=== PATIENT | female | born 1930 | race Caucasian/White ===

== ENCOUNTER 2016-07-10 14:28 | Emergency (ER) | payer MEDICARE ==
[2016-07-10 14:42] VITALS: O2SAT 97
[2016-07-10] MEDS ORDERED: Sodium Chloride 0.9% 1000 ML 1,000 ML ONE (15:11)
--- NOTE | 2016-07-10 15:12 | ERPHSYRPT ---
- History of Present Illness Time Seen by Provider: 07/10/16 15:10 Source: patient, family Exam Limitations: no limitations Patient Subjective Stated Complaint: pt states she was making brownies and became dizzy. pt denies any pain at this time. states dizziness is better. pt states she takes her blood pressure med at night. Triage Nursing Assessment: pt pink, warm, dry. pt able to transfer to er cot without difficulty. pt afebrile. Physician History: pt states she was making brownies and became dizzy. pt denies any pain at this time. states dizziness is better. pt states she takes her blood pressure med at night. Timing/Duration: today Severity: mild Character of Deficits: none Deficits: no difficulties Baseline/Normal Cognition: alert oriented x 3, poor alertness Baseline Gait: uses cane Associated Symptoms: denies symptoms Allergies/Adverse Reactions: Sulfa (Sulfonamide Antibiotics) Allergy (Intermediate, Verified 07/10/16 14:42) stated "made me feel funny" Home Medications: Aspirin 162 mg PO DAILY 08/18/14 [History] Atorvastatin Calcium [Lipitor] 40 mg PO HS 08/18/14 [History] Celecoxib [Celebrex] 200 mg PO DAILY 08/18/14 [History] Esomeprazole Magnesium [Nexium] 40 mg PO DAILY 08/18/14 [History] Levothyroxine Sodium [Synthroid] 50 mcg PO DAILY 08/18/14 [History] Amlodipine Besylate/Benazepril [Amlodipine-Benazepril 5-10 mg] 1 cap PO HS 10/26 [History] Calc/D3/Mag/Zn/Underlay Stitcher/Toni/Hardy [Calcium 600 mg Plus Vit D Tab] 1 tab PO BID 10/26 [History] Famotidine [Pepcid] 40 mg PO HS 10/27/15 [History] Hydrocodone/APAP 10/325 mg [[place] 10/325 MG Tablet] 0.5 tab PO BID [History] Ibandronate Sodium 150 mg PO UD 10/27/15 [History] Multivitamin [Daily Multivitamin] 1 tab PO DAILY 10/27/15 [History] Hx Tetanus, Diphtheria Vaccination/Date Given: Yes (up to date) Hx Influenza Vaccination/Date Given: Yes Hx Pneumococcal Vaccination/Date Given: Yes Immunizations Up to Date: Yes - Review of Systems Constitutional: No Fever, No Chills Eyes: No Symptoms Ears, Nose, & Throat: No Symptoms Respiratory: No Cough, No Dyspnea Cardiac: No Chest Pain, No Edema, No Syncope Abdominal/Gastrointestinal: No Abdominal Pain, No Nausea, No Vomiting, No Diarrhea Genitourinary Symptoms: No Dysuria Musculoskeletal: No Back Pain, No Neck Pain Skin: No Rash Neurological: Dizziness, No Focal Weakness, No Sensory Changes Psychological: No Symptoms Endocrine: No Symptoms All Other Systems: Reviewed and Negative - Past Medical History Pertinent Past Medical History: Yes Neurological History: No Pertinent History ENT History: Cataracts Cardiac History: Coronary Artery Disease, High Cholesterol, Hypertension Respiratory History: No Pertinent History Endocrine Medical History: Hyperthyroidism Musculoskeletal History: Arthritis, Degenerative Disk Disease GI Medical History: GERD, Ulcer History: No Pertinent History Psycho-Social History: No Pertinent History Female Reproductive Disorders: No Pertinent History Other Medical History: HX OF TRIPLE BYPASS 1997 - Past Surgical History Past Surgical History: Yes Neuro Surgical History: No Pertinent History Cardiac: CABG Respiratory: No Pertinent History Gastrointestinal: Cholecystectomy Genitourinary: No Pertinent History Musculoskeletal: No Pertinent History, Orthopedic Surgery Female Surgical History: No Pertinent History Other Surgical History: kypho - Social History Smoking Status: Never smoker Exposure to second hand smoke: No Drug Use: none Patient Lives Alone: Yes - Nursing Vital Signs Nursing Vital Signs: Initial Vital Signs Temperature Source Oral Pulse Rate 64 Respiratory Rate 18 Blood Pressure [] 182/80 Pain Intensity 0 - Hamzah Coma Scale Best Eye Response (Hamzah): (4) open spontaneously Best Verbal Response (Hamzah): (5) oriented Best Motor Response ([place]): (6) obeys commands Hamzah Total: 15 - Physical Exam General Appearance: no apparent distress, alert Eye Exam: bilateral eye: PERRL, EOMI Ears, Nose, Throat Exam: normal ENT inspection, moist mucous membranes Neck Exam: normal inspection, non-tender, supple Respiratory: normal breath sounds, lungs clear, airway intact, No respiratory distress Cardiovascular: regular rate/rhythm, No edema Gastrointestinal: soft, No tenderness, No distention Back Exam: normal inspection Extremity Exam: normal inspection, No pedal edema Mental Status: alert, 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 Exam: tongue midline Coordination/Gait: normal finger to nose, normal gait Skin Exam: normal color, warm, dry, No rash SpO2: 97 Oxygen Delivery: Room Air - Course Nursing assessment & vital signs reviewed: Yes - CT Exams Head CT Interpretation: Tele-radiologist Report Ordered Tests: Active Orders 24 hr Category Date Time Status Blast Furnace Keeper Helper STAT Care 07/10/16 16:01 Active EKG-ER Only STAT Care 07/10/16 15:07 Active HEAD WITHOUT CONTRAST [CT] Stat Exams 07/10/16 15:08 Taken CBC W DIFF Stat Lab 07/10/16 15:24 Completed CMP Stat Lab 07/10/16 15:24 Completed UA Stat Lab 07/10/16 15:15 Completed Medication Summary Generic Name Dose Route Start Last Admin Trade Name Freq PRN Reason Stop Dose Admin Sodium Chloride 1,000 mls @ 50 mls/hr 07/10/16 15:15 07/10/16 15:24 Sodium Chloride 0.9% 1000 Ml IV 08/09/16 15:14 50 mls/hr .Q20H ZHANNA Administration Discontinued Medications Generic Name Dose Route Start Last Admin Trade Name Freq PRN Reason Stop Dose Admin Sodium Chloride Confirm 07/10/16 15:11 Sodium Chloride 0.9% 1000 Ml Administered 07/10/16 15:12 Dose 1,000 mls @ ud .ROUTE .[facility] Lab/Rad Data: Laboratory Result Diagrams 07/10/16 15:24 07/10/16 15:24 Laboratory Results 07/10/16 07/10/16 07/10/16 Range/Units 15:24 15:24 15:15 WBC 7.6 (4.0-10.5) K/mm3 RBC 4.00 L (4.1-5.4) M/mm3 Hgb 12.5 (12.0-16.0) gm/dl Hct 37.7 (35-47) % MCV 94.3 (78-100) fl MCH 31.2 (26-32) pg MCHC 33.2 (32-36) g/dl RDW 13.5 (11.5-14.0) % Plt Count 230 (150-450) K/mm3 MPV 10.2 H (6-9.5) fl Gran % 68.4 H (36.0-66.0) % Lymphocytes % 19.7 L (24.0-44.0) % Monocytes % 9.3 (0.0-12.0) % Eosinophils % 2.1 (0.00-5.0) % Basophils % 0.5 (0.0-0.4) % Basophils # 0.04 (0-0.4) Sodium 135 L (136-145) mEq/L Potassium 4.2 (3.5-5.1) mEq/L Chloride 97 L (98-107) mEq/L Carbon Dioxide 26.9 (21-32) mEq/L Anion Gap 15.4 H (5-15) MEQ/L BUN 16 (9-20) mg/dL Creatinine 0.99 (0.55-1.30) mg/dl Estimated GFR 57 ML/MIN Glucose 138 H (70-110) MG/DL Calcium 9.4 (8.5-10.1) mg/dL Total Bilirubin 0.5 (0.2-1.0) mg/dL AST 27 (15-37) U/L ALT 19 (12-78) U/L Alkaline Phosphatase 74 (46-116) U/L Serum Total Protein 7.6 (6.4-8.2) gm/dL Albumin 4.1 (3.4-5.0) g/dL Ur Collection Type CLEAN CATCH Urine Color YELLOW (YELLOW) Urine Appearance CLEAR (CLEAR) Urine pH 6.5 (5-6) Ur Specific [place] 1.015 (1.005-1.025) Urine Protein NEGATIVE (Negative) Urine Glucose (UA) NEGATIVE (NEGATIVE) mg/dL Urine Ketones NEGATIVE (NEGATIVE) Urine Nitrite NEGATIVE (NEGATIVE) Urine Bilirubin NEGATIVE (NEGATIVE) Urine Urobilinogen 0.2 (0-1) mg/dL Urine WBC (Auto) NEGATIVE (NEGATIVE) Urine RBC (Auto) NEGATIVE (0-5) Shaun/ul Specimen Received 07/10/16 1515 - Progress Progress: improved Counseled pt/family regarding: lab results, diagnosis, need for follow-up, rad results - Departure Time of Disposition: 16:39 Departure Disposition: Home Clinical Impression: Dizziness and giddiness Hypertension Qualifiers: Hypertension type: essential hypertension Qualified Code(s): I10 - Essential ( primary) hypertension Condition: Stable Critical Care Time: Yes Critical Care Time(excluding separately billable procedures): 30-74 minutes Referrals: SAÚL KEATING [Primary Care Provider] - Additional Instructions: Please follow the instructions given to you. Please take your medication as prescribed if given. If symptoms recur or get worse, come back to the emergency room if you cannot reach your primary care physician, or call your primary care physician for an appointment. Again if your symptoms get worse, come back to the emergency room. Thanks for visiting emergency room, and let us take care of you.
[2016-07-10] MEDS ORDERED: Sodium Chloride 0.9% 1000 ML 1,000 ML IV SCH (15:15)
[2016-07-10 15:28] LABS: Collection Type CLEAN CATCH
[2016-07-10 15:29] LABS: COMPLETE URINE MICROSCOPIC? NO; Ph 6.5 (5-6)
[2016-07-10 15:34] LABS: BASOPHIL % 0.5 % (0.0-0.4); Eosinophil % 2.1 % (0.00-5.0); Granulocytes % 68.4 % (36.0-66.0); Lymphocytes % 19.7 % (24.0-44.0); Mean Cell Volume 94.3 fl (78-100); Mean Platelet Volume 10.2 fl (6-9.5); Monocytes % 9.3 % (0.0-12.0); Platelet Count 230 K/mm3 (150-450); Red Cell Distribution Width 13.5 % (11.5-14.0); White Blood Count 7.6 K/mm3 (4.0-10.5)
[2016-07-10 15:38] LABS: Mean Corpuscular Hemoglobin 31.2 pg (26-32)
[2016-07-10 15:48] VITALS: PULSE 64
[2016-07-10 15:52] LABS: ALBUMIN 4.1 g/dL (3.4-5.0); ANION GAP 15.4 MEQ/L (5-15); BILIRUBIN,TOTAL 0.5 mg/dL (0.2-1.0); Carbon Dioxide 26.9 mEq/L (21-32); Potassium 4.2 mEq/L (3.5-5.1); Total Protein 7.6 gm/dL (6.4-8.2)
[2016-07-10 16:32] VITALS: BP 182/80
--- NOTE | 2016-07-10 21:48 | XRAY ---
Indication: Dizziness. Multiple contiguous axial images obtained through the head without contrast. Comparison: None Age-appropriate global atrophy and minimal periventricular degenerative micro-ischemia. No acute intracranial hemorrhage, abnormal extra-axial fluid collection, or mass effect. Fourth ventricle is midline without hydrocephalus. Bony calvarium intact. Partial opacification of the mastoid air cells bilaterally. Remaining visualized paranasal sinuses and mastoid air cells are pneumatized and clear. Impression: Nonacute senile brain. Partial opacification of the mastoid air cells presumed inflammatory. Comment: Preliminary interpretation was made by [facility]. No discrepancy. CTDI 69.79
== END 2016-07-10 17:07 | disposition home or self-care (01) ==
LOC: ED 14:28
DX: I10 Essential (primary) hypertension (principal); R42 Dizziness and giddiness; Z79.899 Other long term (current) drug therapy; I25.10 Atherosclerotic heart disease of native coronary artery without angina pectoris; E78.00 Pure hypercholesterolemia, unspecified; Z95.1 Presence of aortocoronary bypass graft
CPT/HCPCS: 36000; 36415; 70450; 80053; 81002; 85025; 93005; 93041; 99283

== ENCOUNTER 2018-06-25 07:57 | Observation (INO) | payer MEDICARE ==
--- NOTE | 2018-06-25 08:16 | ERPHSYRPT ---
- History of Present Illness Time Seen by Provider: 06/25/18 08:13 Source: patient, family Exam Limitations: no limitations Patient Subjective Stated Complaint: pt arrived pov for sob this morning while using the restroom.also co dizziness with movement, also co dry cough Triage Nursing Assessment: pt alert, able to undress and get in bed with minimal assistance, resp easy,chest clear, abd soft, nontender Physician History: The patient is an 88-year-old female with her daughter complaining of a sudden onset of shortness of breath and a pounding heart that began at 2 AM and gradually got betterat 4 AM. She states she still is somewhat short of breath but her heart is not pounding. She denies cough. She denies nausea or vomiting. She denies chest pain. Her past medical history is significant for chronic back pain, hypertension, high cholesterol, GERD, and hypothyroidism. She has a CABG and CAD. Timing/Duration: today, hour(s) (2), sudden, improved Activities at Onset: sleep Severity of Dyspnea-Max: moderate Severity of Dyspnea-Current: mild Possible Cause: no prior episodes Modifying Factors: Improves With: nothing Associated Symptoms: No chest pain/discomfort, No edema, No wheezing Allergies/Adverse Reactions: Sulfa (Sulfonamide Antibiotics) Allergy (Intermediate, Verified 07/10/16 14:42) stated "made me feel funny" Home Medications: Aspirin 162 mg PO DAILY 08/18/14 [History] Atorvastatin Calcium [Lipitor] 40 mg PO HS 08/18/14 [History] Esomeprazole Magnesium [Nexium] 40 mg PO DAILY 08/18/14 [History] Levothyroxine Sodium [Synthroid] 50 mcg PO DAILY 08/18/14 [History] Amlodipine Besylate/Benazepril [Amlodipine-Benazepril 5-10 mg] 1 cap PO HS 10/26 [History] Calc/D3/Mag/Zn/Tai/Toni/[place] [Calcium 600 mg Plus Vit D Tab] 1 tab PO BID [History] Famotidine [Pepcid] 40 mg PO HS 10/27/15 [History] Ibandronate Sodium 150 mg PO UD 10/27/15 [History] Multivitamin [Daily Multivitamin] 1 tab PO DAILY 10/27/15 [History] Famotidine [Pepcid] 40 mg DAILY 06/25/18 [History] Fludrocortisone Acetate 0.1 mg DAILY 06/25/18 [History] Furosemide [Lasix] 40 mg DAILY 06/25/18 [History] Lisinopril [Zestril] 5 mg DAILY 06/25/18 [History] Meclizine HCl 25 mg BID 06/25/18 [History] Meloxicam 7.5 mg [Mobic 7.5 MG] 7.5 mg DAILY 06/25/18 [History] Metoclopramide HCl 10 mg [Reglan 10 MG] 10 mg BID 06/25/18 [History] Metoprolol Succinate 25 mg Xl* [Toprol-Xl 25MG Tablets] 25 mg DAILY 06/25/18 [History] Oxybutynin Chloride [Oxybutynin Chloride ER] 5 mg DAILY 06/25/18 [History] Potassium Chloride 8 meq DAILY 06/25/18 [History] Tolterodine Tartrate [Detrol LA] 4 mg DAILY 06/25/18 [History] Hx Tetanus, Diphtheria Vaccination/Date Given: No Hx Influenza Vaccination/Date Given: Yes Hx Pneumococcal Vaccination/Date Given: Yes Immunizations Up to Date: Yes - Review of Systems Constitutional: No Fever, No Chills Eyes: No Symptoms Ears, Nose, & Throat: No Symptoms Respiratory: Dyspnea, No Cough Cardiac: Palpitations Abdominal/Gastrointestinal: No Abdominal Pain, No Nausea, No Vomiting, No Diarrhea Genitourinary Symptoms: No Dysuria Musculoskeletal: No Back Pain, No Neck Pain Skin: No Rash Neurological: No Dizziness, No Focal Weakness, No Sensory Changes Psychological: No Symptoms Endocrine: No Symptoms Hematologic/Lymphatic: No Symptoms Immunological/Allergic: No Symptoms All Other Systems: Reviewed and Negative - Past Medical History Pertinent Past Medical History: Yes Neurological History: No Pertinent History ENT History: Cataracts Cardiac History: Coronary Artery Disease, High Cholesterol, Hypertension Respiratory History: No Pertinent History Endocrine Medical History: Hyperthyroidism Musculoskeletal History: Arthritis, Degenerative Disk Disease GI Medical History: GERD, Ulcer History: No Pertinent History Psycho-Social History: No Pertinent History Female Reproductive Disorders: No Pertinent History Other Medical History: HX OF TRIPLE BYPASS 1997 - Past Surgical History Past Surgical History: Yes Neuro Surgical History: No Pertinent History Cardiac: CABG Respiratory: No Pertinent History Gastrointestinal: Cholecystectomy Genitourinary: No Pertinent History Musculoskeletal: No Pertinent History, Orthopedic Surgery Female Surgical History: No Pertinent History Other Surgical History: kypho - Social History Smoking Status: Never smoker Exposure to second hand smoke: No Drug Use: none Patient Lives Alone: Yes - Female History Hx Last Menstrual Period: post - Nursing Vital Signs Nursing Vital Signs: Initial Vital Signs Temperature 97.9 F 06/25/18 08:04 Pulse Rate 61 06/25/18 08:04 Respiratory Rate 16 06/25/18 08:04 Blood Pressure 197/76 06/25/18 08:04 O2 Sat by Pulse Oximetry 97 06/25/18 08:04 Pain Scale Pain Intensity 0 - Physical Exam General Appearance: no apparent distress, alert Eye Exam: PERRL/EOMI Ears, Nose, Throat Exam: hearing grossly normal Neck Exam: normal inspection, supple Respiratory Exam: normal breath sounds, No accessory muscle use, No rhonchi, No wheezing Cardiovascular/Chest Exam: normal heart sounds, regular rate/rhythm Abdominal/Gastrointestinal Exam: soft, No tenderness, No distention, No mass Rectal Exam: not done Extremity Exam: non-tender, normal range of motion, normal inspection, no calf tenderness, no pedal edema Neurologic Exam: alert, oriented x 3, cooperative, power plant mechanic II-XII nml as tested, sensation nml, No motor deficits Skin Exam: normal color, warm, No dry SpO2 Interpretation: normal SpO2: 97 Oxygen Delivery: Room Air - Course EKG Interpreted by Me: RATE, Sinus Rhythm, NORMAL AXIS, NORMAL INTERVALS, NORMAL QRS, NORMAL ST-T, Other ( no change in EKG comp to EG from 07/10/16.) - Radiology Exams Chest X-ray Interpretation: Reviewed by me, Teleradiologist Report (per Dr Bonner), Negative Ordered Tests: Active Orders 24 hr Category Date Time Status Color Worker STAT Care 06/25/18 08:21 Active EKG-ER Only STAT Care 06/25/18 08:21 Active IV Insertion STAT Care 06/25/18 08:21 Active CHEST 2 VIEWS (PA AND LAT) Stat Exams 06/25/18 08:23 Completed CBC W DIFF Stat Lab 06/25/18 08:40 Completed CMP Stat Lab 06/25/18 08:40 Completed D-DIMER QUANTITATION Stat Lab 06/25/18 08:40 Completed Lactic Acid Stat Lab 06/25/18 08:45 Completed NT PRO BNP Stat Lab 06/25/18 08:40 Completed PROTIME WITH INR Stat Lab 06/25/18 08:40 Completed TROPONIN Q3H Lab 06/25/18 08:40 Completed TROPONIN Q3H Lab 06/25/18 11:30 Ordered TROPONIN Q3H Lab 06/25/18 14:30 Ordered TROPONIN Q3H Lab 06/25/18 17:30 Ordered TROPONIN Q3H Lab 06/25/18 20:30 Ordered UA W/RFX UR CULTURE Stat Lab 06/25/18 09:35 Completed Lab/Rad Data: Laboratory Result Diagrams 06/25/18 08:40 06/25/18 08:40 Laboratory Results 06/25/18 06/25/18 06/25/18 Range/Units 09:35 08:45 08:40 WBC (4.0-10.5) K/mm3 RBC (4.1-5.4) M/mm3 Hgb (12.0-16.0) gm/dl Hct (35-47) % MCV (78-100) fl MCH (26-32) pg MCHC (32-36) g/dl RDW (11.5-14.0) % Plt Count (150-450) K/mm3 MPV (6-9.5) fl Gran % (36.0-66.0) % Eos # (Auto) (0-0.5) Absolute Lymphs (auto) (1.0-4.6) Absolute Monos (auto) (0.0-1.3) Lymphocytes % (24.0-44.0) % Monocytes % (0.0-12.0) % Eosinophils % (0.00-5.0) % Basophils % (0.0-0.4) % Absolute Granulocytes (1.4-6.9) Basophils # (0-0.4) PT (9.95-12.35) SECONDS INR (0.8-3.0) D-Dimer (215-500) ng/mL Sodium (137-145) mmol/L Potassium (3.5-5.1) mmol/L Chloride (98-107) mmol/L Carbon Dioxide (22-30) mmol/L Anion Gap (5-15) MEQ/L BUN (7-17) mg/dL Creatinine (0.52-1.04) mg/dL Estimated GFR ML/MIN Glucose (74-106) mg/dL Lactic Acid 1.0 (0.4-2.0) Calcium (8.4-10.2) mg/dL Total Bilirubin (0.2-1.3) mg/dL AST (14-36) U/L ALT (0-35) U/L Alkaline Phosphatase (38-126) U/L Troponin I < 0.012 (0.000-0.034) ng/mL NT-Pro-B Natriuret Pep (0-1800) pg/mL Serum Total Protein (6.3-8.2) g/dL Albumin (3.5-5.0) g/dL Urine Color YELLOW (YELLOW) Urine Appearance CLEAR (CLEAR) Urine pH 7.0 (5-6) Ur Specific [place] 1.008 (1.005-1.025) Urine Protein NEGATIVE (Negative) Urine Ketones NEGATIVE (NEGATIVE) Urine Blood NEGATIVE (0-5) Shaun/ul Urine Nitrite NEGATIVE (NEGATIVE) Urine Bilirubin NEGATIVE (NEGATIVE) Urine Urobilinogen NEGATIVE (0-1) mg/dL Ur Leukocyte Esterase SMALL (NEGATIVE) Urine WBC (Auto) 6-10 (0-5) /HPF Urine RBC (Auto) 0-2 (0-2) /HPF U Epithel Cells (Auto) RARE (FEW) /HPF Urine Bacteria (Auto) MODERATE (NEGATIVE) /HPF Urine Mucus (Auto) SLIGHT (NEGATIVE) /HPF Urine Culture Reflexed NO (NO) Urine Glucose NEGATIVE (NEGATIVE) mg/dL 06/25/18 06/25/18 06/25/18 Range/Units 08:40 08:40 08:40 WBC 9.0 (4.0-10.5) K/mm3 RBC 3.79 L (4.1-5.4) M/mm3 Hgb 12.2 (12.0-16.0) gm/dl Hct 37.7 (35-47) % MCV 99.5 (78-100) fl MCH 32.1 H (26-32) pg MCHC 32.4 (32-36) g/dl RDW 12.8 (11.5-14.0) % Plt Count 223 (150-450) K/mm3 MPV 10.5 H (6-9.5) fl Gran % 66.4 H (36.0-66.0) % Eos # (Auto) 0.24 (0-0.5) Absolute Lymphs (auto) 1.65 (1.0-4.6) Absolute Monos (auto) 1.09 (0.0-1.3) Lymphocytes % 18.4 L (24.0-44.0) % Monocytes % 12.2 H (0.0-12.0) % Eosinophils % 2.7 (0.00-5.0) % Basophils % 0.3 (0.0-0.4) % Absolute Granulocytes 5.94 (1.4-6.9) Basophils # 0.03 (0-0.4) PT 10.6 (9.95-12.35) SECONDS INR 0.91 (0.8-3.0) D-Dimer 592 H* (215-500) ng/mL Sodium 140 (137-145) mmol/L Potassium 3.5 (3.5-5.1) mmol/L Chloride 98 (98-107) mmol/L Carbon Dioxide 33 H (22-30) mmol/L Anion Gap 12.6 (5-15) MEQ/L BUN 26 H (7-17) mg/dL Creatinine 1.28 H (0.52-1.04) mg/dL Estimated GFR 41.8 ML/MIN Glucose 101 (74-106) mg/dL Lactic Acid (0.4-2.0) Calcium 9.5 (8.4-10.2) mg/dL Total Bilirubin 0.60 (0.2-1.3) mg/dL AST 21 (14-36) U/L ALT 15 (0-35) U/L Alkaline Phosphatase 79 (38-126) U/L Troponin I (0.000-0.034) ng/mL NT-Pro-B Natriuret Pep 1070 (0-1800) pg/mL Serum Total Protein 7.7 (6.3-8.2) g/dL Albumin 4.4 (3.5-5.0) g/dL Urine Color (YELLOW) Urine Appearance (CLEAR) Urine pH (5-6) Ur Specific [place] (1.005-1.025) Urine Protein (Negative) Urine Ketones (NEGATIVE) Urine Blood (0-5) Shaun/ul Urine Nitrite (NEGATIVE) Urine Bilirubin (NEGATIVE) Urine Urobilinogen (0-1) mg/dL Ur Leukocyte Esterase (NEGATIVE) Urine WBC (Auto) (0-5) /HPF Urine RBC (Auto) (0-2) /HPF U Epithel Cells (Auto) (FEW) /HPF Urine Bacteria (Auto) (NEGATIVE) /HPF Urine Mucus (Auto) (NEGATIVE) /HPF Urine Culture Reflexed (NO) Urine Glucose (NEGATIVE) mg/dL - Progress Progress: improved Air Movement: good Blood Culture(s) Obtained: No Antibiotics given: No Discussed with : José Miguel Will see patient in: hospital (observation) Counseled pt/family regarding: lab results, diagnosis - Departure Time of Disposition: 10:44 Departure Disposition: Observation (per Dr Valdez) Clinical Impression: Dyspnea, Elevated d-dimer, UTI (urinary tract infection) Condition: Stable Critical Care Time: No Referrals: SAÚL KEATING [Primary Care Provider] -
--- NOTE | 2018-06-25 08:47 | XRAY ---
Indication: Short of breath. Comparison: October 28, 2015. PA/lateral chest demonstrates stable COPD, minimal bibasilar fibrosis/scarring, and small hiatal hernia. No focal infiltrate, consolidation, or large effusion. Heart is not enlarged again demonstrating previous cardiothoracic surgery. Bony thorax intact again with osteopenia, degenerative changes, old right rib fractures, and multilevel thoracolumbar kyphoplasty. Impression: Stable nonacute chest with chronic features.
[2018-06-25 09:03] LABS: BASOPHIL % 0.3 % (0.0-0.4); Basophil (Absolute #) 0.03 (0-0.4); Eosinophil % 2.7 % (0.00-5.0); Eosinophil (Absolute #) 0.24 (0-0.5); Granulocytes % 66.4 % (36.0-66.0); Hematocrit 37.7 % (35-47); Hemoglobin 12.2 gm/dl (12.0-16.0); Lymphocyte (Absolute #) 1.65 (1.0-4.6); Lymphocytes % 18.4 % (24.0-44.0); Mean Cell Volume 99.5 fl (78-100); Mean Corpuscular Hgb Concent. 32.4 g/dl (32-36); Mean Platelet Volume 10.5 fl (6-9.5); Monocyte (Absolute #) 1.09 (0.0-1.3); Monocytes % 12.2 % (0.0-12.0); Platelet Count 223 K/mm3 (150-450); Red Blood Count 3.79 M/mm3 (4.1-5.4); Red Cell Distribution Width 12.8 % (11.5-14.0)
[2018-06-25 09:05] LABS: Mean Corpuscular Hemoglobin 32.1 pg (26-32)
[2018-06-25 09:17] LABS: INR 0.91 (0.8-3.0); PROTIME 10.6 SECONDS (9.95-12.35)
[2018-06-25 09:28] LABS: ALBUMIN 4.4 g/dL (3.5-5.0); ANION GAP 12.6 MEQ/L (5-15); BILIRUBIN,TOTAL 0.6 mg/dL (0.2-1.3); Calcium 9.5 mg/dL (8.4-10.2); Creatinine 1 1.28 mg/dL (0.52-1.04); Potassium 3.5 mmol/L (3.5-5.1); Total Protein 7.7 g/dL (6.3-8.2)
[2018-06-25 09:47] LABS: Appearance CLEAR (CLEAR); Bacteria MODERATE /HPF (NEGATIVE); Bilirubin NEGATIVE (NEGATIVE); Blood NEGATIVE Ery/ul (0-5); Epithelial Cells RARE /HPF (FEW); Glucose NEGATIVE (NEGATIVE); Ketones NEGATIVE (NEGATIVE); Leukocyte Esterase SMALL (NEGATIVE); Mucus SLIGHT /HPF (NEGATIVE); Nitrite NEGATIVE (NEGATIVE); Protein,Urine Dip NEGATIVE (Negative); RBC 0-2 /HPF (0-2); Specific Gravity 1.008 (1.005-1.025); Urobilinogen NEGATIVE mg/dL (0-1)
[2018-06-25] MEDS ORDERED: ENOXAPARIN SODIUM SQ ONE ×3 (10:47→21:52)
[2018-06-25] MEDS ORDERED: TYLENOL 325 MG PO PRN (11:26)
[2018-06-25] MEDS ORDERED: Zofran 4 MG/2 ML VIAL IV PRN (11:26)
[2018-06-25] MEDS: Sodium Chloride 0.9% 1000 ML 1,000 ML IV SCH ×2 (11:56→21:29)
[2018-06-25] MEDS: ROCEPHIN 1 Gm-D5w 50 ml Bag** 1 G/50 ML IVPB IV SCH (12:02)
[2018-06-25] MEDS ORDERED: ANTIVERT 25 MG PO PRN (15:49)
[2018-06-25] MEDS ORDERED: MEDICATION INTERVENTION MC SCH (16:30)
[2018-06-25] MEDS ORDERED: APRESOLINE 20 MG/ML INJ IV PRN (20:30)
[2018-06-25] MEDS: Ditropan XL 5 MG PO SCH (21:24)
[2018-06-25] MEDS: Toprol-Xl 25MG Tablets PO SCH (21:24)
[2018-06-25] MEDS: Reglan 10 MG PO SCH (21:25)
--- NOTE | 2018-06-25 21:32 | PCM.HP ---
History of Present Illness - Chief Complaint Chief Complaint: Dyspnea, Elevated DDimer, UTI History of Present Illness: is a 88 year old female pt of Dr. Hernández with PMHx HTN, CAD (s/p CABG), GERD, hyperlipidemia, arthritis, and hypothyroidism, currently in PT for her back who started having SOB at home this morning. At 2 am she went to the bathroom where she started feeling SOB. It lasted until 4 a.m. She denies any chest pain. At 7 am the SOB returned and she called a family member to bring her to the ER. In the ER she was found to have an elevated d-dimer of 592. CXR was non acute. The feeling had resolved by then. Her BUN/Cr were 26/1.28, with eGFR of 41.8 so she could not have a CTA of the chest. She was admitted for observation and was given 1mg/kg SQ injection of lovenox x1. She denies hx of PE/DVT. - Review of Systems Constitutional: Fever (subj low grade), Weakness (PT "tires me out") Respiratory: Short Of Breath Psychological: No Anxiety, No Depression, No Suicidal Ideations All Other Systems: Reviewed and Negative Medications & Allergies Home Medications: Home Medication List Esomeprazole Magnesium [Nexium] 40 mg PO DAILY 08/18/14 [History Confirmed 06/25] Levothyroxine Sodium [Synthroid] 50 mcg PO DAILY 08/18/14 [History Confirmed ] Ibandronate Sodium 150 mg PO UD 10/27/15 [History Confirmed 06/25/18] Multivitamin [Daily Multivitamin] 1 tab PO DAILY 10/27/15 [History Confirmed ] Aspirin EC 81 mg [Ecotrin 81 mg] 162 mg PO DAILY 06/25/18 [History Confirmed 06/25/18] Famotidine [Pepcid] 40 mg PO DAILY 06/25/18 [History Confirmed 06/25/18] Fludrocortisone Acetate 0.1 mg PO DAILY 06/25/18 [History Confirmed 06/25/18] Furosemide [Lasix] 40 mg PO DAILY 06/25/18 [History Confirmed 06/25/18] Meclizine HCl 25 mg PO TIDPRN PRN 06/25/18 [History Confirmed 06/25/18] Meloxicam 7.5 mg [Mobic 7.5 MG] 7.5 mg PO DAILY 06/25/18 [History Confirmed 06/25/18] Metoclopramide HCl 10 mg [Reglan 10 MG] 10 mg PO BID 06/25/18 [History Confirmed 06/25/18] Metoprolol Succinate 25 mg Xl* [Toprol-Xl 25MG Tablets] 12.5 mg PO BID [History Confirmed 06/25/18] Oxybutynin Chloride [Oxybutynin Chloride ER] 5 mg PO BID 06/25/18 [History Confirmed 06/25/18] Potassium Chloride 8 meq PO DAILY 06/25/18 [History Confirmed 06/25/18] Tolterodine Tartrate [Detrol LA] 4 mg PO DAILY 06/25/18 [History Confirmed 06/25] Allergies/Adverse Reactions: Allergies Allergy/AdvReac Type Severity Reaction Status Date / Time Sulfa (Sulfonamide Allergy Intermediate Verified 07/10/16 14:42 Antibiotics) - Past Medical History Past Medical History: Yes Neurological History: No Pertinent History ENT History: Cataracts Cardiac History: Coronary Artery Disease, High Cholesterol, Hypertension Respiratory History: No Pertinent History Endocrine Medical History: Hyperthyroidism Musculoskelatal History: Arthritis, Degenerative Disk Disease GI Medical History: GERD, Ulcer History: No Pertinent History Pyscho-Social History: No Pertinent History Reproductive Disorders: No Pertinent History Comment: HX OF TRIPLE BYPASS 1997 - Female History Hx Last Menstrual Period: Yrs ago Are you now?: No - Past Surgical History Past Surgical History: Yes Neuro Surgical History: No Pertinent History Cardiac History: CABG Respiratory Surgery: No Pertinent History GI Surgical History: Cholecystectomy Genitourinary Surgical Hx: No Pertinent History Musculskeletal Surgical Hx: No Pertinent History, Orthopedic Surgery Female Surgical History: No Pertinent History Other Surgical History: kypho - Social History Smoking Status: Never smoker Exposure to second hand smoke: No Alcohol: None Drug Use: none - Physical Exam Vital Signs: Vital Signs - 24 hr Temp Pulse Resp BP Pulse Ox 06/25/18 20:00 98.7 F 60 16 152/67 95 06/25/18 16:00 98.7 F 62 16 163/64 94 L 06/25/18 12:07 98.6 F 60 16 181/73 96 06/25/18 11:00 68 16 183/72 97 06/25/18 10:53 97 06/25/18 09:54 58 L 18 164/67 98 06/25/18 09:47 58 L 18 164/67 96 06/25/18 08:04 97.9 F 61 16 197/76 97 General Appearance: no apparent distress, alert Neurologic Exam: oriented x 3, cooperative Eye Exam: eyes nml inspection Ears, Nose, Throat Exam: moist mucous membranes Neck Exam: normal inspection, non-tender, No lymphadenopathy Respiratory Exam: normal breath sounds, lungs clear, other (midline chest thin scar well healed), No crackles/rales, No rhonchi, No wheezing Cardiovascular Exam: regular rate/rhythm, normal heart sounds, No murmur Gastrointestinal/Abdomen Exam: soft, normal bowel sounds, No tenderness, No distention, No mass, No guarding, No rebound Back Exam: normal inspection, No rash Extremity Exam: normal inspection, No pedal edema, No swelling Skin Exam: normal color, warm, dry, No rash Results - Labs Lab/Micro Results: Lab Results-Last 24 Hours 06/25/18 06/25/18 06/25/18 Range/Units 08:40 08:40 08:40 WBC 9.0 (4.0-10.5) K/mm3 RBC 3.79 L (4.1-5.4) M/mm3 Hgb 12.2 (12.0-16.0) gm/dl Hct 37.7 (35-47) % MCV 99.5 (78-100) fl MCH 32.1 H (26-32) pg MCHC 32.4 (32-36) g/dl RDW 12.8 (11.5-14.0) % Plt Count 223 (150-450) K/mm3 MPV 10.5 H (6-9.5) fl Gran % 66.4 H (36.0-66.0) % Eos # (Auto) 0.24 (0-0.5) Absolute Lymphs (auto) 1.65 (1.0-4.6) Absolute Monos (auto) 1.09 (0.0-1.3) Lymphocytes % 18.4 L (24.0-44.0) % Monocytes % 12.2 H (0.0-12.0) % Eosinophils % 2.7 (0.00-5.0) % Basophils % 0.3 (0.0-0.4) % Absolute Granulocytes 5.94 (1.4-6.9) Basophils # 0.03 (0-0.4) PT 10.6 (9.95-12.35) SECONDS INR 0.91 (0.8-3.0) D-Dimer 592 H* (215-500) ng/mL Sodium 140 (137-145) mmol/L Potassium 3.5 (3.5-5.1) mmol/L Chloride 98 (98-107) mmol/L Carbon Dioxide 33 H (22-30) mmol/L Anion Gap 12.6 (5-15) MEQ/L BUN 26 H (7-17) mg/dL Creatinine 1.28 H (0.52-1.04) mg/dL Estimated GFR 41.8 ML/MIN Glucose 101 (74-106) mg/dL Lactic Acid (0.4-2.0) Calcium 9.5 (8.4-10.2) mg/dL Total Bilirubin 0.60 (0.2-1.3) mg/dL AST 21 (14-36) U/L ALT 15 (0-35) U/L Alkaline Phosphatase 79 (38-126) U/L Troponin I (0.000-0.034) ng/mL NT-Pro-B Natriuret Pep 1070 (0-1800) pg/mL Serum Total Protein 7.7 (6.3-8.2) g/dL Albumin 4.4 (3.5-5.0) g/dL Urine Color (YELLOW) Urine Appearance (CLEAR) Urine pH (5-6) Ur Specific [place] (1.005-1.025) Urine Protein (Negative) Urine Ketones (NEGATIVE) Urine Blood (0-5) Shaun/ul Urine Nitrite (NEGATIVE) Urine Bilirubin (NEGATIVE) Urine Urobilinogen (0-1) mg/dL Ur Leukocyte Esterase (NEGATIVE) Urine WBC (Auto) (0-5) /HPF Urine RBC (Auto) (0-2) /HPF U Epithel Cells (Auto) (FEW) /HPF Urine Bacteria (Auto) (NEGATIVE) /HPF Urine Mucus (Auto) (NEGATIVE) /HPF Urine Culture Reflexed (NO) Urine Glucose (NEGATIVE) mg/dL 06/25/18 06/25/18 06/25/18 Range/Units 08:40 08:45 09:35 WBC (4.0-10.5) K/mm3 RBC (4.1-5.4) M/mm3 Hgb (12.0-16.0) gm/dl Hct (35-47) % MCV (78-100) fl MCH (26-32) pg MCHC (32-36) g/dl RDW (11.5-14.0) % Plt Count (150-450) K/mm3 MPV (6-9.5) fl Gran % (36.0-66.0) % Eos # (Auto) (0-0.5) Absolute Lymphs (auto) (1.0-4.6) Absolute Monos (auto) (0.0-1.3) Lymphocytes % (24.0-44.0) % Monocytes % (0.0-12.0) % Eosinophils % (0.00-5.0) % Basophils % (0.0-0.4) % Absolute Granulocytes (1.4-6.9) Basophils # (0-0.4) PT (9.95-12.35) SECONDS INR (0.8-3.0) D-Dimer (215-500) ng/mL Sodium (137-145) mmol/L Potassium (3.5-5.1) mmol/L Chloride (98-107) mmol/L Carbon Dioxide (22-30) mmol/L Anion Gap (5-15) MEQ/L BUN (7-17) mg/dL Creatinine (0.52-1.04) mg/dL Estimated GFR ML/MIN Glucose (74-106) mg/dL Lactic Acid 1.0 (0.4-2.0) Calcium (8.4-10.2) mg/dL Total Bilirubin (0.2-1.3) mg/dL AST (14-36) U/L ALT (0-35) U/L Alkaline Phosphatase (38-126) U/L Troponin I < 0.012 (0.000-0.034) ng/mL NT-Pro-B Natriuret Pep (0-1800) pg/mL Serum Total Protein (6.3-8.2) g/dL Albumin (3.5-5.0) g/dL Urine Color YELLOW (YELLOW) Urine Appearance CLEAR (CLEAR) Urine pH 7.0 (5-6) Ur Specific [place] 1.008 (1.005-1.025) Urine Protein NEGATIVE (Negative) Urine Ketones NEGATIVE (NEGATIVE) Urine Blood NEGATIVE (0-5) Shaun/ul Urine Nitrite NEGATIVE (NEGATIVE) Urine Bilirubin NEGATIVE (NEGATIVE) Urine Urobilinogen NEGATIVE (0-1) mg/dL Ur Leukocyte Esterase SMALL (NEGATIVE) Urine WBC (Auto) 6-10 (0-5) /HPF Urine RBC (Auto) 0-2 (0-2) /HPF U Epithel Cells (Auto) RARE (FEW) /HPF Urine Bacteria (Auto) MODERATE (NEGATIVE) /HPF Urine Mucus (Auto) SLIGHT (NEGATIVE) /HPF Urine Culture Reflexed YES (NO) Urine Glucose NEGATIVE (NEGATIVE) mg/dL 06/25/18 06/25/18 06/25/18 Range/Units 11:33 14:30 18:03 WBC (4.0-10.5) K/mm3 RBC (4.1-5.4) M/mm3 Hgb (12.0-16.0) gm/dl Hct (35-47) % MCV (78-100) fl MCH (26-32) pg MCHC (32-36) g/dl RDW (11.5-14.0) % Plt Count (150-450) K/mm3 MPV (6-9.5) fl Gran % (36.0-66.0) % Eos # (Auto) (0-0.5) Absolute Lymphs (auto) (1.0-4.6) Absolute Monos (auto) (0.0-1.3) Lymphocytes % (24.0-44.0) % Monocytes % (0.0-12.0) % Eosinophils % (0.00-5.0) % Basophils % (0.0-0.4) % Absolute Granulocytes (1.4-6.9) Basophils # (0-0.4) PT (9.95-12.35) SECONDS INR (0.8-3.0) D-Dimer (215-500) ng/mL Sodium (137-145) mmol/L Potassium (3.5-5.1) mmol/L Chloride (98-107) mmol/L Carbon Dioxide (22-30) mmol/L Anion Gap (5-15) MEQ/L BUN (7-17) mg/dL Creatinine (0.52-1.04) mg/dL Estimated GFR ML/MIN Glucose (74-106) mg/dL Lactic Acid (0.4-2.0) Calcium (8.4-10.2) mg/dL Total Bilirubin (0.2-1.3) mg/dL AST (14-36) U/L ALT (0-35) U/L Alkaline Phosphatase (38-126) U/L Troponin I 0.014 0.013 0.015 (0.000-0.034) ng/mL NT-Pro-B Natriuret Pep (0-1800) pg/mL Serum Total Protein (6.3-8.2) g/dL Albumin (3.5-5.0) g/dL Urine Color (YELLOW) Urine Appearance (CLEAR) Urine pH (5-6) Ur Specific [place] (1.005-1.025) Urine Protein (Negative) Urine Ketones (NEGATIVE) Urine Blood (0-5) Shaun/ul Urine Nitrite (NEGATIVE) Urine Bilirubin (NEGATIVE) Urine Urobilinogen (0-1) mg/dL Ur Leukocyte Esterase (NEGATIVE) Urine WBC (Auto) (0-5) /HPF Urine RBC (Auto) (0-2) /HPF U Epithel Cells (Auto) (FEW) /HPF Urine Bacteria (Auto) (NEGATIVE) /HPF Urine Mucus (Auto) (NEGATIVE) /HPF Urine Culture Reflexed (NO) Urine Glucose (NEGATIVE) mg/dL 06/25/18 Range/Units 20:25 WBC (4.0-10.5) K/mm3 RBC (4.1-5.4) M/mm3 Hgb (12.0-16.0) gm/dl Hct (35-47) % MCV (78-100) fl MCH (26-32) pg MCHC (32-36) g/dl RDW (11.5-14.0) % Plt Count (150-450) K/mm3 MPV (6-9.5) fl Gran % (36.0-66.0) % Eos # (Auto) (0-0.5) Absolute Lymphs (auto) (1.0-4.6) Absolute Monos (auto) (0.0-1.3) Lymphocytes % (24.0-44.0) % Monocytes % (0.0-12.0) % Eosinophils % (0.00-5.0) % Basophils % (0.0-0.4) % Absolute Granulocytes (1.4-6.9) Basophils # (0-0.4) PT (9.95-12.35) SECONDS INR (0.8-3.0) D-Dimer (215-500) ng/mL Sodium (137-145) mmol/L Potassium (3.5-5.1) mmol/L Chloride (98-107) mmol/L Carbon Dioxide (22-30) mmol/L Anion Gap (5-15) MEQ/L BUN (7-17) mg/dL Creatinine (0.52-1.04) mg/dL Estimated GFR ML/MIN Glucose (74-106) mg/dL Lactic Acid (0.4-2.0) Calcium (8.4-10.2) mg/dL Total Bilirubin (0.2-1.3) mg/dL AST (14-36) U/L ALT (0-35) U/L Alkaline Phosphatase (38-126) U/L Troponin I 0.014 (0.000-0.034) ng/mL NT-Pro-B Natriuret Pep (0-1800) pg/mL Serum Total Protein (6.3-8.2) g/dL Albumin (3.5-5.0) g/dL Urine Color (YELLOW) Urine Appearance (CLEAR) Urine pH (5-6) Ur Specific [place] (1.005-1.025) Urine Protein (Negative) Urine Ketones (NEGATIVE) Urine Blood (0-5) Shaun/ul Urine Nitrite (NEGATIVE) Urine Bilirubin (NEGATIVE) Urine Urobilinogen (0-1) mg/dL Ur Leukocyte Esterase (NEGATIVE) Urine WBC (Auto) (0-5) /HPF Urine RBC (Auto) (0-2) /HPF U Epithel Cells (Auto) (FEW) /HPF Urine Bacteria (Auto) (NEGATIVE) /HPF Urine Mucus (Auto) (NEGATIVE) /HPF Urine Culture Reflexed (NO) Urine Glucose (NEGATIVE) mg/dL - Radiology Impressions Radiology Exams & Impressions: Radiology Procedures Category Date Time Status CHEST 2 VIEWS (PA AND LAT) Stat Exams 06/25/18 08:23 Completed Assessment/Plan (1) Dyspnea Current Visit: Yes Status: Acute Qualifiers: Dyspnea type: shortness of breath Qualified Code(s): R06.02 - Shortness of breath; R06.00 - Dyspnea, unspecified; R06.01 - Orthopnea Assessment & Plan: Currently resolved, but did have 2 significant episodes this morning. I will continue to cover her with lovenox 1mg/kg SQ q12h, and I explained that we will recheck her renal function in the morning. I let her know that Dr. Hernández may order a CTA of the chest, or a VQ scan, or he may decide on the basis of her overnight clinical course that no further testing is warranted. Code(s): R06.00 - DYSPNEA, UNSPECIFIED (2) Elevated d-dimer Current Visit: Yes Status: Acute Code(s): R79.89 - OTHER SPECIFIED ABNORMAL FINDINGS OF BLOOD CHEMISTRY (3) Hypertension Current Visit: No Status: Chronic Qualifiers: Hypertension type: essential hypertension Qualified Code(s): I10 - Essential (primary) hypertension Assessment & Plan: Has had several bp in the 180s systolic here; I will not make any changes in her home medicine, but have added prn hydralazine to her orders. Code(s): I10 - ESSENTIAL (PRIMARY) HYPERTENSION
[2018-06-25] MEDS ORDERED: ENOXAPARIN SODIUM SQ SCH (21:45)
[2018-06-26 05:37] LABS: BASOPHIL % 0.3 % (0.0-0.4); Basophil (Absolute #) 0.02 (0-0.4); Eosinophil % 3.9 % (0.00-5.0); Eosinophil (Absolute #) 0.23 (0-0.5); Granulocytes % 59.6 % (36.0-66.0); Hematocrit 29.2 % (35-47); Hemoglobin 9.5 gm/dl (12.0-16.0); Lymphocyte (Absolute #) 1.46 (1.0-4.6); Lymphocytes % 24.5 % (24.0-44.0); Mean Cell Volume 99.7 fl (78-100); Mean Corpuscular Hemoglobin 32.4 pg (26-32); Mean Corpuscular Hgb Concent. 32.5 g/dl (32-36); Mean Platelet Volume 10.3 fl (6-9.5); Monocytes % 11.7 % (0.0-12.0); Platelet Count 173 K/mm3 (150-450); Red Blood Count 2.93 M/mm3 (4.1-5.4); Red Cell Distribution Width 12.7 % (11.5-14.0)
[2018-06-26 06:03] LABS: ANION GAP 9.2 MEQ/L (5-15); Calcium 8.2 mg/dL (8.4-10.2); Creatinine 1 1.04 mg/dL (0.52-1.04); Potassium 3.1 mmol/L (3.5-5.1)
[2018-06-26] MEDS: ROCEPHIN 1 Gm-D5w 50 ml Bag** 1 G/50 ML IVPB IV SCH (09:05)
[2018-06-26] MEDS: Toprol-Xl 25MG Tablets PO SCH (09:06)
[2018-06-26] MEDS: Ditropan XL 5 MG PO SCH (09:07)
[2018-06-26] MEDS: Reglan 10 MG PO SCH (09:25)
[2018-06-26] MEDS ORDERED: Pepcid 20 MG PO SCH (10:00)
[2018-06-26] MEDS ORDERED: ENOXAPARIN SODIUM SQ SCH (10:00)
[2018-06-26] MEDS ORDERED: Lasix 40 MG PO SCH (10:00)
[2018-06-26] MEDS ORDERED: ECOTRIN 81 MG PO SCH (10:00)
[2018-06-26] MEDS ORDERED: SYNTHROID 50 MCG PO SCH (10:00)
[2018-06-26] MEDS ORDERED: SYNTHROID 25 MCG PO SCH (10:00)
[2018-06-26] MEDS ORDERED: Mobic 7.5 MG PO SCH (10:00)
[2018-06-26] MEDS ORDERED: Protonix 40MG Tablet PO SCH (10:00)
[2018-06-26] MEDS ORDERED: NON-FORMULARY ITEM (Esomeprazole Magnesium [Nexium] 40 MG) PO SCH (10:00)
[2018-06-26] MEDS ORDERED: NON-FORMULARY ITEM (Potassium Chloride [Potassium Chloride] 8 MEQ) PO SCH (10:00)
[2018-06-26] MEDS ORDERED: Klor Con 10 MEQ PO SCH (10:00)
--- NOTE | 2018-06-26 10:03 | SSS ---
DISCHARGE DIAGNOSIS: UNSTABLE ANGINA. CHIEF COMPLAINT: Chest heaviness. HISTORY OF PRESENT ILLNESS: The patient is an 88 year-old white female who reports she has had some chest heaviness and pressure lasting approximately 20 to 30 minutes on two separate occasions prior to presenting herself to the emergency room. The patient was seen there and evaluated in the hospital for further evaluation and management. She was found to have urinary tract infection for which the patient did not know nor was she symptomatic. PAST MEDICAL/SURGICAL HISTORY: Coronary artery disease. She has had previous coronary artery bypass grafting. HOME MEDICATIONS: Presently include aspirin 81 mg 2 tablets a day, Lipitor 40 mg a day, Nexium 40 mg a day, Synthroid 50 mcg daily, amlodipine/benazepril 5/10 mg 1 tablet at night, Pepcid 40 mg a day, ibandronate 150 mg daily, Lasix 40 mg daily, lisinopril 5 mg a day, meclizine 25 mg t.i.d., Mobic 7.5 mg a day, Reglan 10 mg b.i.d., metoprolol 25 mg a day, oxybutynin 5 mg a day, potassium 8 mEq a day, Detrol LA 4 mg a day. ALLERGIES: SULFA. PHYSICAL EXAMINATION: Patient's vital signs on admission showed temperature 97.9F, pulse 61, respiratory rate 16 and blood pressure 197/76. O2 saturations 95%. HEENT: Normocephalic, atraumatic. Pupils equal round reactive to light. Extraocular movements intact. Oropharynx is pink and moist. NECK: Supple without lymphadenopathy, thyromegaly or JVD. CHEST: Clear to auscultation. HEART: Regular rate and rhythm, slight systolic murmur is heard. ABDOMEN: Soft. No palpable masses. EXTREMITIES: Without clubbing, cyanosis or edema. NEUROLOGIC: The patient is alert and oriented x3. LAB DATA AND TESTS: Revealed a slight elevation in her D-dimer at 597 although her creatinine is too high to allow us to do a CT pulmonary embolism protocol. I did not feel it was high enough and/or problematic enough to run a VQ scan. The patient's initial lab studies showed lactic acid 1.0. Troponin was less than 0.012. Her metabolic panel showed glucose 101, BUN 26, creatinine 1.28. Electrolytes were normal. Liver enzymes were normal. ProBNP was normal at 1,070. White blood cell count was 9,000, hemoglobin 37.7, PLT count 223,000. UA showed 6 to 10 white blood cells per high power field and is growing gram-negative jamil. TIBC component 0.014 and another one 0.013. CBC was normal. ASSESSMENT: A patient with unstable angina. 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 She is to continue to take her aspirin and her usual home medications otherwise. We will send her home with Keflex 500 mg t.i.d. while the urine culture is pending. She is to return to my office in one week.
[2018-06-26 12:37] VITALS: BP 148/62; PULSE 57; O2SAT 97
== END 2018-06-26 11:14 | disposition home or self-care (01) ==
LOC: ED 07:57 → MED SURG 11:20
PROVIDERS: ADMIT Family Medicine; ATTEND Family Medicine
DX: I20.0 Unstable angina (principal); R06.09 Other forms of dyspnea; R79.89 Other specified abnormal findings of blood chemistry; I10 Essential (primary) hypertension; I25.810 Atherosclerosis of coronary artery bypass graft(s) without angina pectoris; E78.5 Hyperlipidemia, unspecified; N28.9 Disorder of kidney and ureter, unspecified; E03.9 Hypothyroidism, unspecified; N39.0 Urinary tract infection, site not specified; K21.9 Gastro-esophageal reflux disease without esophagitis; Z79.899 Other long term (current) drug therapy; R79.1 Abnormal coagulation profile
CPT/HCPCS: 36000; 36415; 71046; 80048; 80053; 81001; 83605; 83880; 84484; 85025; 85379; 85610; 87077; 87086; 87186; 93005; 93041; 93268; 94762; 96372; 99285; G0378; J0696; J1650; A9270-GY

== ENCOUNTER 2018-08-16 06:12 | Observation (INO) | payer MEDICARE ==
--- NOTE | 2018-08-16 06:43 | ERPHSYRPT ---
- History of Present Illness Source: patient, family Exam Limitations: no limitations Patient Subjective Stated Complaint: Pt c/o falling sometime last week. Has been recently going to therapy for back pain. Has now developed left hip pain. Pt c/o pain with ambulation. Triage Nursing Assessment: Pt alert and oriented x 3. Skin pale and cool. Denies any numbness or tingling to LLE. Equal pedal pulses bilaterally. Occurred: last week Reason for Fall: lost balance, slipped Injuries/Pain Location: back, pelvis Loss of Consciousness: no loss of consciousness Quality: aching, tightness Severity of Pain-Max: mild Severity of Pain-Current: mild Modifying Factors: Improves With: movement (worsens) Associated Symptoms (Fall): back pain, muscle spasms, other (left hip) Hx Tetanus, Diphtheria Vaccination/Date Given: No Hx Influenza Vaccination/Date Given: Yes Hx Pneumococcal Vaccination/Date Given: Yes Immunizations Up to Date: Yes <BOO MENDIOLA - Last Filed: 08/16/18 06:34> <CHAPARRITA MARTINEZ - Last Filed: 08/16/18 08:42> - History of Present Illness Time Seen by Provider: 08/16/18 06:36 Physician History: 88 y/o white female has fallen a couple of times in the last 2 weeks. on celebrex and hydrocodone at night presents with low back pain and left hip pain. pt slipped and fell again last week. she does not recall which date. pt kept her appt with her primary care doctor last week. physical therapy started secondary to falls. pt had a follow up pcp appt on 08/14/18. pt underwent another physical therapy session yesterday. pain in the lower back and left hip worse this am. pt states she never had any xrays done. concerned there might be a fx. (BOO MENDIOLA) Allergies/Adverse Reactions: Sulfa (Sulfonamide Antibiotics) Allergy (Intermediate, Verified 08/16/18 06:33) stated "made me feel funny" Home Medications: Esomeprazole Magnesium [Nexium] 40 mg PO DAILY 08/18/14 [History] Levothyroxine Sodium [Synthroid] 50 mcg PO DAILY 08/18/14 [History] Ibandronate Sodium 150 mg PO UD 10/27/15 [History] Multivitamin [Daily Multivitamin] 1 tab PO DAILY 10/27/15 [History] Aspirin EC 81 mg [Ecotrin 81 mg] 162 mg PO DAILY 06/25/18 [History] Famotidine [Pepcid] 40 mg PO DAILY 06/25/18 [History] Fludrocortisone Acetate 0.1 mg PO DAILY 06/25/18 [History] Furosemide [Lasix] 40 mg PO DAILY 06/25/18 [History] Meclizine HCl 25 mg PO TIDPRN PRN 06/25/18 [History] Meloxicam 7.5 mg [Mobic 7.5 MG] 7.5 mg PO DAILY 06/25/18 [History] Metoclopramide HCl 10 mg [Reglan 10 MG] 10 mg PO BID 06/25/18 [History] Metoprolol Succinate 25 mg Xl* [Toprol-Xl 25MG Tablets] 12.5 mg PO BID [History] Oxybutynin Chloride [Oxybutynin Chloride ER] 5 mg PO BID 06/25/18 [History] Tolterodine Tartrate [Detrol LA] 4 mg PO DAILY 06/25/18 [History] - Review of Systems Constitutional: No Symptoms Eyes: No Symptoms Ears, Nose, & Throat: No Symptoms Respiratory: No Symptoms Cardiac: No Symptoms Abdominal/Gastrointestinal: No Symptoms Genitourinary Symptoms: No Symptoms Musculoskeletal: Back Pain, Fall, Injury (left hip) Skin: No Symptoms Neurological: No Symptoms Psychological: No Symptoms Endocrine: No Symptoms Hematologic/Lymphatic: No Symptoms Immunological/Allergic: No Symptoms All Other Systems: Reviewed and Negative <BOO MENDIOLA - Last Filed: 08/16/18 06:34> - Past Medical History Pertinent Past Medical History: Yes Neurological History: No Pertinent History, Other ENT History: Cataracts Cardiac History: Coronary Artery Disease Respiratory History: No Pertinent History Endocrine Medical History: No Pertinent History Musculoskeletal History: Arthritis GI Medical History: GERD, Ulcer History: No Pertinent History Psycho-Social History: No Pertinent History Female Reproductive Disorders: No Pertinent History Other Medical History: Parkinson's disease - Past Surgical History Past Surgical History: Yes Neuro Surgical History: No Pertinent History Cardiac: CABG Respiratory: No Pertinent History Gastrointestinal: Cholecystectomy Genitourinary: No Pertinent History Musculoskeletal: No Pertinent History, Orthopedic Surgery Female Surgical History: No Pertinent History Other Surgical History: kyphoplasty - Social History Smoking Status: Never smoker Exposure to second hand smoke: No Drug Use: none Patient Lives Alone: Yes - Female History Hx Now: No <BOO MENDIOLA - Last Filed: 08/16/18 06:34> - [place] Coma Score Best Eye Response ([place]): (4) open spontaneously Best Verbal Response ([place]): (5) oriented Best Motor Response ([place]): (6) obeys commands [place] Total: 15 - Physical Exam General Appearance: no apparent distress, alert, anxiety Head Injury: no evidence of injury, No Gautam's Sign, No lacerations Eye Exam: PERRL/EOMI, eyes nml inspection ENT Exam: airway nml, nml ext.inspection, No evidence of ENT injury, No hemotympanum Neck Exam: supple, trachea midline, full range of motion, normal alignment, normal inspection, No pain on movement of neck Respiratory/Chest Exam: chest tenderness, normal breath sounds, No respiratory distress Cardiovascular Exam: normal heart sounds, regular rate/rhythm, normal peripheral pulses Gastrointestinal Exam: soft, normal bowel sounds, No tenderness, No guarding, No rebound Rectal Exam: not done Back Exam: normal inspection, normal range of motion, vertebral tenderness Extremity Exam: normal inspection, normal range of motion, pelvis stable, hip tenderness (left) Neurologic Exam: alert, oriented x 3, cooperative, plant safety leader II-XII nml as tested Skin Exam: normal color, warm, dry SpO2 Interpretation: normal SpO2: 96 O2 Delivery: Room Air <BOO MENDIOLA - Last Filed: 08/16/18 06:34> - Nursing Vital Signs Nursing Vital Signs: Initial Vital Signs Temperature 97.7 F 08/16/18 06:21 Pulse Rate 67 08/16/18 06:21 Respiratory Rate 16 08/16/18 06:21 Blood Pressure 210/78 08/16/18 06:21 O2 Sat by Pulse Oximetry 96 08/16/18 06:21 Pain Scale Pain Intensity 3 - Course Nursing assessment & vital signs reviewed: Yes - Radiology Exams L-Spine X-ray Interpretation: Interpreted by me, Other (significant rotary scoliosis; multiple post op surgeries; no acute fx noted; calcified vascular; DJD) Left Hip X-ray Interpretation: Interpreted by me, Other (DJD left hip; no acute fracture noted) <CHAPARRITA MARTINEZ - Last Filed: 08/16/18 08:42> Ordered Tests: Active Orders 24 hr Category Date Time Status Call Admit Doctor for Orders ON ADMISSION Care 08/16/18 08:38 Ordered Code Status Order ROUTINE Care 08/16/18 08:36 Ordered Fall Protocol ROUTINE Care 08/16/18 08:38 Ordered IV Care Q6H Care 08/16/18 08:36 Ordered Neuro Checks Q4H Care 08/16/18 08:[address] in Observation ROUTINE Care 08/16/18 08:37 Ordered Alexandre Hose, Apply ROUTINE Care 08/16/18 08:36 Ordered Weight,Daily 0600 Care 08/16/18 08:36 Ordered Regular Diet Diet 08/16/18 Lunch Ordered HIP UNI (2V) INCL PEL IF DONE Stat Exams 08/16/18 06:58 Taken LOWER EXTREMITY WO CONTRAST [CT] Stat Exams 08/16/18 08:19 Ordered LUMBAR COMPLETE (MIN 4 VIEWS) Stat Exams 08/16/18 06:58 Taken CBC W DIFF Stat Lab 08/16/18 08:39 Ordered CMP Stat Lab 08/16/18 08:39 Ordered Transfer Order Routine Transfer 08/16/18 Ordered <BOO MENDIOLA - Last Filed: 08/16/18 06:34> - Progress Progress: re-examined (after xr) Discussed with : Giancarlo (consulted and will admit to [facility]) Will see patient in: hospital (observation) Counseled pt/family regarding: diagnosis, need for follow-up, rad results <CHAPARRITA MARTINEZ - Last Filed: 08/16/18 08:42> - Progress Progress Note: 08/16/18 06:[address] martinez. i reviewed pt hx, condition with him and pending tests. he accepts pt. (BOO MENDIOLA) 08/16/18 07:[address] Mendiola; report taken; patient in xr; will recheck and introduce myself post xr 08/16/18 07:31 rechecked post xr and patient alert and ox3; resting comfortably in bed at rest ; friend at bedside; HEENT all wnl; Neck, Chest and hrt all wnl; abd soft non tender; normal BS; upper ext FROM; nontender normal ROM; Pelvis stable and non tender; RLE good ROM non tender; LLE decrease ROM; pain left hip ; no point tenderness elicited; some shortening; no distal NV defecits; XR resutls pending; 08/16/18 07:36 xr showed significant DJD; rotary scoliosis; no acute fx identified; will discuss with patient and LMD for disposition 08/16/18 08:40 Dr Mondragon consulted and will place in OBS fall evaluation and get a CT of left hip for fracture; patient notified (CHAPARRITA MARTINEZ) <BOO MENDIOLA - Last Filed: 08/16/18 06:34> - Departure Time of Disposition: 08:42 Departure Disposition: Observation Critical Care Time: No <CHAPARRITA MARTINEZ - Last Filed: 08/16/18 08:42> - Departure Clinical Impression: Contusion of left hip, Inability to ambulate due to hip Condition: Fair Referrals: SAÚL KEATING [Primary Care Provider] - Instructions: Contusion (DC)
[2018-08-16 08:59] LABS: BASOPHIL % 0.4 % (0.0-0.4); Basophil (Absolute #) 0.03 (0-0.4); Eosinophil % 1.1 % (0.00-5.0); Eosinophil (Absolute #) 0.09 (0-0.5); Granulocyte Absolute (ANC) 6.26 (1.4-6.9); Granulocytes % 74.8 % (36.0-66.0); Hematocrit 35.3 % (35-47); Hemoglobin 11.4 gm/dl (12.0-16.0); Lymphocyte (Absolute #) 1.18 (1.0-4.6); Lymphocytes % 14.1 % (24.0-44.0); Mean Cell Volume 98.3 fl (78-100); Mean Corpuscular Hgb Concent. 32.3 g/dl (32-36); Mean Platelet Volume 9.6 fl (6-9.5); Monocytes % 9.6 % (0.0-12.0); Platelet Count 239 K/mm3 (150-450); Red Blood Count 3.59 M/mm3 (4.1-5.4); Red Cell Distribution Width 13.1 % (11.5-14.0); White Blood Count 8.4 K/mm3 (4.0-10.5)
[2018-08-16 09:06] LABS: Mean Corpuscular Hemoglobin 31.7 pg (26-32)
--- NOTE | 2018-08-16 09:12 | XRAY ---
Indication: Pain following fall. Multiple contiguous axial images obtained through the left hip. Sagittal and coronal reformatted images obtained. Comparison: CT abdomen and pelvis May 10, 2011. Again age-related osteopenia. No acute fracture, dislocation, or suspicious bony lesions. Stable weightbearing joint space narrowing and acetabular spurring. Also stable ischial tuberosity spurring and degenerative changes of the pubis symphysis. Surrounding noncontrasted soft tissues unremarkable. Stable scattered vascular calcifications and sigmoid diverticulosis. Impression: 1. Negative acute fracture/dislocation. 2. Stable osteopenia, degenerative changes, and sigmoid diverticulosis. CT DI 18.10
[2018-08-16 09:14] LABS: ALBUMIN 4.4 g/dL (3.5-5.0); ANION GAP 13.2 MEQ/L (5-15); BILIRUBIN,TOTAL 0.7 mg/dL (0.2-1.3); Calcium 9.3 mg/dL (8.4-10.2); Creatinine 1 1.12 mg/dL (0.52-1.04); Total Protein 7.7 g/dL (6.3-8.2)
--- NOTE | 2018-08-16 09:39 | XRAY ---
Indication: Pain following fall 1.5 weeks ago. Comparison: January 16, 2015. 5 views of the lumbar spine demonstrates interval T10/T11 kyphoplasty. Stable T12/L1/L3 kyphoplasty, L5 compression deformity, osteopenia, dextrorotoscoliosis, moderate/advanced multilevel degenerative spondylosis, L5 grade 1 spondylolisthesis, multiple surgical clips, and heavy scattered vascular calcifications. No new acute fracture or subluxation.
--- NOTE | 2018-08-16 09:40 | XRAY ---
Indication: Pain following fall 1.5 weeks ago. Comparison: None 2 views of the left hip demonstrates osteopenia, degenerative joint space narrowing, and scattered vascular calcifications. No other bony, articular, or soft tissue abnormalities.
[2018-08-16] MEDS ORDERED: K-LYTE 25 MEQ PO ONE (09:52)
[2018-08-16] MEDS ORDERED: Catapres 0.1 MG PO ONE (09:53)
[2018-08-16] MEDS ORDERED: NORCO 5/325 MG PO PRN (09:53)
[2018-08-16] MEDS: APRESOLINE 20 MG/ML INJ IV PRN ×2 (10:20→16:25)
[2018-08-16] MEDS: SODIUM CHLORIDE 0.45% W/ 20 mEq KCL 1,000 ML IV SCH (10:21)
[2018-08-16] MEDS ORDERED: Zestril 5 MG PO SCH (13:00)
[2018-08-16] MEDS ORDERED: MEDICATION INTERVENTION PO SCH (13:00)
[2018-08-16] MEDS: Protonix 40MG Tablet PO SCH (13:14)
[2018-08-16] MEDS: Toprol-Xl 25MG Tablets PO SCH ×2 (13:14→21:19)
[2018-08-16] MEDS: Lasix 40 MG PO SCH ×2 (13:15→13:18)
[2018-08-16] MEDS: Pepcid 20 MG PO SCH (13:15)
[2018-08-16] MEDS: ECOTRIN 81 MG PO SCH (13:15)
[2018-08-16] MEDS: Ditropan XL 5 MG PO SCH ×2 (13:15→21:19)
[2018-08-16] MEDS: Klor Con 10 MEQ PO SCH (13:15)
[2018-08-16] MEDS: SYNTHROID 50 MCG PO SCH (13:35)
[2018-08-16] MEDS: Reglan 10 MG PO SCH (16:25)
[2018-08-17] MEDS: APRESOLINE 20 MG/ML INJ IV PRN (00:09)
[2018-08-17] MEDS: SODIUM CHLORIDE 0.45% W/ 20 mEq KCL 1,000 ML IV SCH ×2 (05:09→23:52)
[2018-08-17 06:38] LABS: ANION GAP 9.4 MEQ/L (5-15); Calcium 8.9 mg/dL (8.4-10.2); Creatinine 1 1.04 mg/dL (0.52-1.04); MAGNESIUM 1.8 mg/dL (1.6-2.3); Potassium 3.7 mmol/L (3.5-5.1)
[2018-08-17] MEDS: Reglan 10 MG PO SCH ×2 (07:36→16:27)
[2018-08-17] MEDS: Klor Con 10 MEQ PO SCH (09:49)
[2018-08-17] MEDS: SYNTHROID 50 MCG PO SCH (09:49)
[2018-08-17] MEDS: Ditropan XL 5 MG PO SCH ×2 (09:49→21:15)
[2018-08-17] MEDS: Zestril 10 MG PO SCH (09:49)
[2018-08-17] MEDS: Toprol-Xl 25MG Tablets PO SCH ×2 (09:49→21:15)
[2018-08-17] MEDS: ECOTRIN 81 MG PO SCH (09:49)
[2018-08-17] MEDS: Lasix 40 MG PO SCH (09:49)
[2018-08-17] MEDS: Pepcid 20 MG PO SCH (09:49)
[2018-08-17] MEDS: Protonix 40MG Tablet PO SCH (09:49)
[2018-08-17] MEDS ORDERED: NON-FORMULARY ITEM (Potassium Chloride [Potassium Chloride] 8 MEQ) PO SCH (10:00)
[2018-08-17] MEDS ORDERED: NON-FORMULARY ITEM (Esomeprazole Magnesium [Nexium] 40 MG) PO SCH (10:00)
[2018-08-17 10:44] LABS: INFLUENZA A NEGATIVE (NEGATIVE); INFLUENZA B NEGATIVE (NEGATIVE); RESPIRATORY SYNCTIAL VIRUS NEGATIVE (Negative)
[2018-08-17 13:30] LABS: Appearance CLEAR (CLEAR); Bilirubin NEGATIVE (NEGATIVE); Blood NEGATIVE Ery/ul (0-5); Glucose NEGATIVE (NEGATIVE); Ketones NEGATIVE (NEGATIVE); Leukocyte Esterase NEGATIVE (NEGATIVE); Nitrite NEGATIVE (NEGATIVE); Protein,Urine Dip NEGATIVE (Negative); Specific Gravity 1.006 (1.005-1.025); Urobilinogen NEGATIVE mg/dL (0-1); WBC 0-2 /HPF (0-5)
[2018-08-18 05:52] LABS: BASOPHIL % 0.6 % (0.0-0.4); Basophil (Absolute #) 0.04 (0-0.4); Eosinophil % 6.8 % (0.00-5.0); Eosinophil (Absolute #) 0.44 (0-0.5); Granulocyte Absolute (ANC) 3.96 (1.4-6.9); Granulocytes % 61.2 % (36.0-66.0); Hematocrit 30.6 % (35-47); Hemoglobin 9.7 gm/dl (12.0-16.0); Lymphocyte (Absolute #) 1.36 (1.0-4.6); Mean Cell Volume 99.4 fl (78-100); Mean Corpuscular Hgb Concent. 31.7 g/dl (32-36); Mean Platelet Volume 10.1 fl (6-9.5); Monocyte (Absolute #) 0.67 (0.0-1.3); Monocytes % 10.4 % (0.0-12.0); Platelet Count 223 K/mm3 (150-450); Red Blood Count 3.08 M/mm3 (4.1-5.4); Red Cell Distribution Width 13.5 % (11.5-14.0); White Blood Count 6.5 K/mm3 (4.0-10.5)
[2018-08-18 05:58] LABS: Mean Corpuscular Hemoglobin 31.4 pg (26-32)
[2018-08-18 06:13] LABS: BILIRUBIN,TOTAL 0.4 mg/dL (0.2-1.3); Calcium 8.5 mg/dL (8.4-10.2); Creatinine 1 1.15 mg/dL (0.52-1.04); Total Protein 5.7 g/dL (6.3-8.2)
[2018-08-18] MEDS: Reglan 10 MG PO SCH (06:43)
[2018-08-18] MEDS: APRESOLINE 20 MG/ML INJ IV PRN (06:46)
[2018-08-18 07:05] VITALS: O2SAT 97
--- NOTE | 2018-08-18 08:22 | HP ---
CHIEF COMPLAINT: Hip pain and fall. HISTORY OF PRESENT ILLNESS: The patient is an 88 year-old white female still living at home, has been having problems with ambulation and had fallen. She had been complaining of hip pain. Evaluation showed her not to have a fracture although probably a deep contusion. The patient has been receiving home PT but reports the last time she had therapy she actually hurt more after therapy. She was brought to the hospital for further evaluation and management with possible need for rehab stay. PAST MEDICAL/SURGICAL HISTORY: Significant for coronary artery disease, cataracts, arthritis, gastroesophageal reflux disease. She has history of possible Parkinson's disease. She had a cholecystectomy. She has had kyphoplasty for compression fracture of the spine for osteoporosis. HOME MEDICATIONS: Nexium 40 mg a day, Synthroid 50 mcg a day, aspirin 81 mg two tablets a day, famotidine 40 mg a day, fludrocortisone 0.1 mg due to hypotension that she takes daily, Lasix 40 mg a day, meclizine 25 mg t.i.d., meloxicam 7.5 mg a day, metoclopramide 10 mg b.i.d., Toprol XL 25 mg one-half tablet b.i.d., oxybutynin 5 mg b.i.d. and Detrol LA 4 mg a day. ALLERGIES: SULFA. PHYSICAL EXAMINATION: Revealed a frail elderly white female currently in no obvious distress. Her vital signs on admission showed a temperature of 97.7F, pulse 67, respiratory rate 16, blood pressure 210/78. O2 saturation 96% on room air. HEENT: Normocephalic, atraumatic. Pupils equal round reactive to light. Extraocular movements intact. Oropharynx is pink and moist. NECK: Supple without lymphadenopathy, thyromegaly or JVD. CHEST: Clear to auscultation. HEART: Regular rate and rhythm. ABDOMEN: Soft without palpable masses. EXTREMITIES: Without cyanosis, clubbing or edema. NEUROLOGIC: The patient is alert and oriented x3. No focal deficits were noted. LAB DATA AND TESTS: White count 8,400, hemoglobin 11.4, PLT count 279,000. Her sugar was 103 nonfasting with a BUN 22, creatinine 1.12. Potassium was low at 3.0. Liver enzymes were normal. ASSESSMENT: A patient with falls and hip pain. She has also been found to be hypokalemic. She has been admitted to the hospital for IV fluids, repletion of potassium. She received PT evaluation for evaluation for possible need for rehab stay. It is unlikely at this time that she is able to care for herself in the home given the recent fall, weakness and complaints of pain.
[2018-08-18] MEDS: SYNTHROID 50 MCG PO SCH (09:03)
[2018-08-18] MEDS: Toprol-Xl 25MG Tablets PO SCH (09:03)
[2018-08-18] MEDS: Pepcid 20 MG PO SCH (09:03)
[2018-08-18] MEDS: Lasix 40 MG PO SCH (09:03)
[2018-08-18] MEDS: Ditropan XL 5 MG PO SCH (09:03)
[2018-08-18] MEDS: Klor Con 10 MEQ PO SCH (09:03)
[2018-08-18] MEDS: ECOTRIN 81 MG PO SCH (09:04)
[2018-08-18] MEDS: Zestril 10 MG PO SCH (09:04)
[2018-08-18] MEDS: Protonix 40MG Tablet PO SCH (09:04)
[2018-08-18 11:13] VITALS: BP 140/70; PULSE 70
== END 2018-08-18 12:30 | disposition home health service (06) ==
LOC: ED 06:12 → MED SURG 09:15
PROVIDERS: ADMIT Family Medicine; ATTEND Family Medicine
DX: M25.552 Pain in left hip (principal); E87.6 Hypokalemia; I10 Essential (primary) hypertension; W19.XXXA Unspecified fall, initial encounter; Z79.899 Other long term (current) drug therapy
CPT/HCPCS: 36415; 72110; 73502; 73700; 80048; 80053; 81001; 83735; 85025; 87631; 97161; 99285; G0378; J0360; A9270-GY

== ENCOUNTER 2018-09-27 09:08 | Inpatient (IN) | payer MEDICARE ==
--- NOTE | 2018-09-27 09:36 | ERPHSYRPT ---
- History of Present Illness Time Seen by Provider: 09/27/18 09:14 Source: patient, family Exam Limitations: no limitations Patient Subjective Stated Complaint: PT states "I fell about three weeks ago and my back hurt immediately. Last night my right hip started to hurt and now it is up in my back." Triage Nursing Assessment: Pt presented through the front, alert and oriented X 3, skin pwd Pt ambulates with a slow shuffling gait, able to speak in clear full sentences. PT has no bruising noted. Pt has kyphosis. Physician History: patient with hx of frequent falls recently over past 2-3 weeks; once lost balance using walker; once fell in kitchen hitting her head ? loc 3 weeks ago; no seizures or incontinence; no head or neck pain; pain right ribs; mid lower back; and right hip; intermittant; worse today; no other complaints; pain with deep breathing and laughing; ; ambulated in with cane Occurred: last week (multiple times) Reason for Fall: unknown (once), lost balance (once), tripped (once), fell from standing pos Injuries/Pain Location: head, chest (right side), pelvis (right hip) Loss of Consciousness: unsure Quality: aching (hip and back), sharpness (right ribs) Severity of Pain-Max: moderate Severity of Pain-Current: mild Modifying Factors: Improves With: movement, other (laughing) Associated Symptoms (Fall): back pain, chest pain (right ribs only), shortness of breath (slight chronic), No abdominal pain, No confusion, No dizziness, No headache, No muscle spasms, No nausea, No neck pain, No seizures, No trouble walking, No vomiting Allergies/Adverse Reactions: Sulfa (Sulfonamide Antibiotics) Allergy (Intermediate, Verified 08/16/18 06:33) stated "made me feel funny" Home Medications: Esomeprazole Magnesium [Nexium] 40 mg PO DAILY 08/18/14 [History] Levothyroxine Sodium [Synthroid] 50 mcg PO DAILY 08/18/14 [History] Ibandronate Sodium 150 mg PO UD 10/27/15 [History] Multivitamin [Daily Multivitamin] 1 tab PO DAILY 10/27/15 [History] Aspirin EC 81 mg [Ecotrin 81 mg] 162 mg PO DAILY 06/25/18 [History] Famotidine [Pepcid] 40 mg PO DAILY 06/25/18 [History] Fludrocortisone Acetate 0.1 mg PO DAILY 06/25/18 [History] Furosemide [Lasix] 40 mg PO DAILY 06/25/18 [History] Meclizine HCl 25 mg PO TIDPRN PRN 06/25/18 [History] Meloxicam 7.5 mg [Mobic 7.5 MG] 7.5 mg PO DAILY 06/25/18 [History] Metoclopramide HCl 10 mg [Reglan 10 MG] 10 mg PO BID 06/25/18 [History] Metoprolol Succinate 25 mg Xl* [Toprol-Xl 25MG Tablets] 12.5 mg PO BID [History] Oxybutynin Chloride [Oxybutynin Chloride ER] 5 mg PO BID 06/25/18 [History] Tolterodine Tartrate [Detrol LA] 4 mg PO DAILY 06/25/18 [History] Atorvastatin Calcium 20 mg PO DAILY 08/16/18 [History] Potassium Chloride 8 meq PO DAILY 08/16/18 [History] Hx Tetanus, Diphtheria Vaccination/Date Given: No Hx Influenza Vaccination/Date Given: Yes Hx Pneumococcal Vaccination/Date Given: Yes Immunizations Up to Date: Yes - Review of Systems Constitutional: No Symptoms Eyes: No Symptoms Ears, Nose, & Throat: No Symptoms Respiratory: No Cough, No Cyanosis, No Dyspnea, No Wheezing Cardiac: Chest Pain (right ribs), No Edema, No Palpitations, No Syncope Abdominal/Gastrointestinal: No Abdominal Pain, No Nausea, No Vomiting, No Diarrhea Genitourinary Symptoms: No Symptoms Musculoskeletal: Back Pain, Fall, Injury (question), No Neck Pain Skin: No Symptoms Neurological: No Symptoms Psychological: No Symptoms Endocrine: No Symptoms Hematologic/Lymphatic: No Symptoms Immunological/Allergic: No Symptoms - Past Medical History Pertinent Past Medical History: Yes Neurological History: No Pertinent History, Other ENT History: Cataracts Cardiac History: Coronary Artery Disease Respiratory History: No Pertinent History Endocrine Medical History: No Pertinent History Musculoskeletal History: Arthritis GI Medical History: GERD, Ulcer History: No Pertinent History Psycho-Social History: No Pertinent History Female Reproductive Disorders: No Pertinent History Other Medical History: Parkinson's disease - Past Surgical History Past Surgical History: Yes Neuro Surgical History: No Pertinent History Cardiac: CABG Respiratory: No Pertinent History Gastrointestinal: Cholecystectomy Genitourinary: No Pertinent History Musculoskeletal: No Pertinent History, Orthopedic Surgery Female Surgical History: No Pertinent History Other Surgical History: kyphoplasty - Social History Smoking Status: Never smoker Exposure to second hand smoke: No Alcohol Use: None Drug Use: none Patient Lives Alone: Yes Significant Family History: no pertinent family hx - Female History Hx Now: No - Nursing Vital Signs Nursing Vital Signs: Initial Vital Signs Temperature 97.3 F 09/27/18 09:20 Pulse Rate 62 09/27/18 09:20 Respiratory Rate 18 09/27/18 09:20 Blood Pressure 142/98 09/27/18 09:20 O2 Sat by Pulse Oximetry 96 09/27/18 09:20 Pain Scale Pain Intensity 0 - [place] Coma Score Best Eye Response (Hamzah): (4) open spontaneously Best Verbal Response ([place]): (5) oriented Best Motor Response (Hamzah): (6) obeys commands [place] Total: 15 - Physical Exam General Appearance: mild distress, alert, thin, other (petitie) Head Injury: no evidence of injury, No ecchymosis, No lacerations, No raccoon eyes, No tenderness Eye Exam: PERRL/EOMI, eyes nml inspection, other (vision ok; fundi benign) ENT Exam: airway nml, nml ext.inspection, hearing grossly normal, No evidence of ENT injury, No dental injury, No hemotympanum, No clotted nasal blood, No malocclusion, No oral injury Neck Exam: supple, trachea midline, full range of motion, normal alignment, normal inspection, No muscle spasm, No paraspinous muscle tender, No pain on movement of neck, No tenderness, No carotid bruit, No JVD Respiratory/Chest Exam: normal breath sounds, No chest tenderness, No respiratory distress, No ecchymosis, No crepitus, No decreased breath sounds, No rales, No rhonchi, No wheezing, No subcutaneous emphysema, No rib tenderness , No palpable fracture Cardiovascular Exam: normal heart sounds, regular rate/rhythm, murmur (1-2 /6 DERRELL), normal peripheral pulses, No edema, No JVD, No pulse deficit Gastrointestinal Exam: soft, normal bowel sounds, No tenderness, No guarding, No pulsatile mass, No rebound, No organomegaly Rectal Exam: deferred Back Exam: normal inspection, normal range of motion (for age; accentuated kyphosis), No CVA tenderness, No vertebral tenderness, No rash, No point tenderness Extremity Exam: normal inspection, normal range of motion, capillary refill <3 sec, pelvis stable, other (straight leg good bilateral; no shrotening or external rotations; bears wt ok), No contusions, No deformities, No lacerations , No parasthesia, No paralysis, No bony point tenderness, No pain with movement Peripheral Pulses: carotid (R): 4+, carotid (L): 4+, femoral (R): 4+, femoral (L ): 4+, dorsalis-pedis (R): 2+, dorsalis-pedis (L): 2+ Neurologic Exam: alert, oriented x 3, cooperative, simulation software engineer II-XII nml as tested, normal mood/affect, nml cerebellar function, nml station & gait (for age with cane), sensation nml Skin Exam: normal color, warm, dry, No rash, No petechiae, No cyanosis, No ecchymosis SpO2 Interpretation: normal SpO2: 96 O2 Delivery: Room Air - Course Nursing assessment & vital signs reviewed: Yes EKG Interpreted by Me: RATE, Sinus James (58), NORMAL AXIS, NORMAL INTERVALS, NORMAL QRS, ST Elev (v1 and v2), Non-specific ST Changes, Other (similar to old form 06-25-18 except maybe slight elevation v2) - Radiology Exams Chest X-ray Interpretation: Interpreted by me, Reviewed by me, Teleradiologist Report , No Pneumothorax, Nml Heart Size, Non-displaced Fracture (right ribs multiple) , Infiltrates (new left base) Ribs X-ray Interpretation: Interpreted by me, Non-displaced Fracture (multiple right ribs) Hip X-ray Interpretation: Interpreted by me, No Fracture Pelvis X-ray Interpretation: Interpreted by me, No Fracture - CT Exams Head CT Interpretation: Negative, Tele-radiologist Report, Other (age related changes only) Ordered Tests: Active Orders 24 hr Category Date Time Status Accucheck STAT Care 09/27/18 09:27 Active Call Admit Doctor for Orders ON ADMISSION Care 09/27/18 12:35 Ordered Railroad Construction Director STAT Care 09/27/18 09:28 Active Code Status Order ROUTINE Care 09/27/18 12:33 Ordered EKG-ER Only STAT Care 09/27/18 09:27 Active Fall Protocol ROUTINE Care 09/27/18 12:35 Ordered IV Care Q6H Care 09/27/18 12:33 Ordered IV Insertion STAT Care 09/27/18 09:27 Active Orthostatic Vital Signs STAT Care 09/27/18 09:[address] in Observation ROUTINE Care 09/27/18 12:34 Ordered Pulse Oximetry (ED) STAT Care 09/27/18 09:30 Active Re-Check Vital Signs STAT Care 09/27/18 09:27 Active Alexandre Palm, Apply ROUTINE Care 09/27/18 12:33 Ordered Weight,Daily 0600 Care 09/27/18 12:33 Ordered Regular Diet Diet 09/27/18 Lunch Ordered CHEST 1 VIEW (PORTABLE) Stat Exams 09/27/18 09:27 Completed HEAD WITHOUT CONTRAST [CT] Stat Exams 09/27/18 09:27 Completed HIP UNI (2V) INCL PEL IF DONE Stat Exams 09/27/18 09:31 Completed LUMBAR LIMITED (2 OR 3 VIEWS) Stat Exams 09/27/18 09:29 Completed RIBS UNILATERAL Stat Exams 09/27/18 09:29 Completed CBC W DIFF Stat Lab 09/27/18 11:20 Completed CMP Stat Lab 09/27/18 09:45 Completed PROTIME WITH INR Stat Lab 09/27/18 11:20 Completed TROPONIN Q3H Lab 09/27/18 11:20 Completed TROPONIN Q3H Lab 09/27/18 14:45 Ordered TROPONIN Q3H Lab 09/27/18 17:45 Ordered TROPONIN Q3H Lab 09/27/18 20:45 Ordered TROPONIN Q3H Lab 09/27/18 23:45 Ordered Transfer Order Routine Transfer 09/27/18 Ordered Lab/Rad Data: Laboratory Result Diagrams 09/27/18 11:20 09/27/18 09:45 Laboratory Results 09/27/18 09/27/18 09/27/18 Range/Units 11:20 11:20 11:20 WBC 10.7 H (4.0-10.5) K/mm3 RBC 3.25 L (4.1-5.4) M/mm3 Hgb 10.3 L (12.0-16.0) gm/dl Hct 31.3 L (35-47) % MCV 96.3 (78-100) fl MCH 31.6 (26-32) pg MCHC 32.9 (32-36) g/dl RDW 14.1 H (11.5-14.0) % Plt Count 258 (150-450) K/mm3 MPV 9.8 H (6-9.5) fl Gran % 83.0 H (36.0-66.0) % Eos # (Auto) 0.13 (0-0.5) Absolute Lymphs (auto) 0.94 L (1.0-4.6) Absolute Monos (auto) 0.73 (0.0-1.3) Lymphocytes % 8.8 L (24.0-44.0) % Monocytes % 6.8 (0.0-12.0) % Eosinophils % 1.2 (0.00-5.0) % Basophils % 0.2 (0.0-0.4) % Absolute Granulocytes 8.86 H (1.4-6.9) Basophils # 0.02 (0-0.4) PT 11.4 (9.95-12.35) SECONDS INR 0.98 (0.8-3.0) Sodium (137-145) mmol/L Potassium (3.5-5.1) mmol/L Chloride (98-107) mmol/L Carbon Dioxide (22-30) mmol/L Anion Gap (5-15) MEQ/L BUN (7-17) mg/dL Creatinine (0.52-1.04) mg/dL Estimated GFR ML/MIN Glucose (74-106) mg/dL Calcium (8.4-10.2) mg/dL Total Bilirubin (0.2-1.3) mg/dL AST (14-36) U/L ALT (0-35) U/L Alkaline Phosphatase (38-126) U/L Troponin I < 0.012 (0.000-0.034) ng/mL Serum Total Protein (6.3-8.2) g/dL Albumin (3.5-5.0) g/dL 09/27/18 Range/Units 09:45 WBC (4.0-10.5) K/mm3 RBC (4.1-5.4) M/mm3 Hgb (12.0-16.0) gm/dl Hct (35-47) % MCV (78-100) fl MCH (26-32) pg MCHC (32-36) g/dl RDW (11.5-14.0) % Plt Count (150-450) K/mm3 MPV (6-9.5) fl Gran % (36.0-66.0) % Eos # (Auto) (0-0.5) Absolute Lymphs (auto) (1.0-4.6) Absolute Monos (auto) (0.0-1.3) Lymphocytes % (24.0-44.0) % Monocytes % (0.0-12.0) % Eosinophils % (0.00-5.0) % Basophils % (0.0-0.4) % Absolute Granulocytes (1.4-6.9) Basophils # (0-0.4) PT (9.95-12.35) SECONDS INR (0.8-3.0) Sodium 133 L (137-145) mmol/L Potassium 4.8 (3.5-5.1) mmol/L Chloride 105 (98-107) mmol/L Carbon Dioxide 17 L (22-30) mmol/L Anion Gap 15.8 H (5-15) MEQ/L BUN 19 H (7-17) mg/dL Creatinine 0.97 (0.52-1.04) mg/dL Estimated GFR 57.6 ML/MIN Glucose 125 H (74-106) mg/dL Calcium 8.8 (8.4-10.2) mg/dL Total Bilirubin 0.70 (0.2-1.3) mg/dL AST 31 (14-36) U/L ALT 13 (0-35) U/L Alkaline Phosphatase 124 (38-126) U/L Troponin I (0.000-0.034) ng/mL Serum Total Protein 7.3 (6.3-8.2) g/dL Albumin 3.7 (3.5-5.0) g/dL reviewed - Progress Progress: improved, re-examined Progress Note: 09/27/18 09:40 family at bedside and confirms hx; patietn lives by self; will get xr and CT and check labs, accu check and OSVS and ekg; will monitor and recheck 09/27/18 10:[address] and xr- no change; cT head neg; multiple right rib fractures ? age; no pneumo; pelvis hip neg; family at bedside; EKG and labs pending 09/27/18 11:34 no change will get troponin as lsght elevation V2 on ekg; VS ok; OSVS no change but slight symnptoms when stand 09/27/18 12:30 family and patient notified of admission and results Discussed with : Pavan (consulted covering for Dr Hernández and will admit) Will see patient in: hospital (observation) Counseled pt/family regarding: lab results, diagnosis, need for follow-up, rad results - Departure Departure Disposition: Observation Clinical Impression: new infiltrate left base, weakness and falls, Hyponatremia Condition: Fair Critical Care Time: No Referrals: SAÚL HERNÁNDEZ [Primary Care Provider] - AGATHA ALFONSO [ACTIVE STAFF] -
--- NOTE | 2018-09-27 10:12 | XRAY ---
Indication: Head injury following fall 3 weeks ago. Multiple contiguous axial images obtained through the head without contrast. Comparison: July 10, 2016. Stable global atrophy and minimal periventricular degenerative micro-ischemia. No acute intracranial hemorrhage, abnormal extra-axial fluid collection, or mass effect. Fourth ventricle is midline without hydrocephalus. Bony calvarium intact. Partial opacification of the mastoid air cells bilaterally unchanged. Remaining visualized paranasal sinuses are clear. Impression: 1. Stable nonacute senile brain. 2. Also stable partial opacification of mastoid air cells again presumed inflammatory. CT DI 48.88
[2018-09-27 10:15] LABS: ALBUMIN 3.7 g/dL (3.5-5.0); ANION GAP 15.8 MEQ/L (5-15); BILIRUBIN,TOTAL 0.7 mg/dL (0.2-1.3); Calcium 8.8 mg/dL (8.4-10.2); Creatinine 1 0.97 mg/dL (0.52-1.04); Potassium 4.8 mmol/L (3.5-5.1); Total Protein 7.3 g/dL (6.3-8.2)
--- NOTE | 2018-09-27 11:06 | XRAY ---
Indication: Pain following fall 3 weeks ago. Comparison: June 25, 2018 Portable chest demonstrates again demonstrates COPD with new mild left base infiltrate/atelectasis/effusion. Remaining lungs clear. Heart is not enlarged again with cardiothoracic surgery and calcified aorta. Bony thorax again demonstrates osteopenia, old rib fractures, degenerative changes, multilevel thoracolumbar degenerative spondylosis, and multilevel thoracolumbar kyphoplasty. Impression: New left base infiltrate/atelectasis/effusion. Stable COPD and chronic bony findings.
--- NOTE | 2018-09-27 11:08 | XRAY ---
Indication: Pain following fall 3 weeks ago. Comparison: August 16, 2018. 3 views of the lumbar spine unchanged again demonstrating osteopenia, multilevel thoracolumbar kyphoplasty, dextrorotoscoliosis, moderate/advanced multilevel degenerative spondylosis, L5 compression deformity, L5 grade 1 spondylolisthesis, right abdomen surgical clips, and heavy scattered vascular calcifications. No new/acute findings.
--- NOTE | 2018-09-27 11:09 | XRAY ---
Indication: Pain following fall 3 weeks ago. Comparison: None 2 views of the right ribs demonstrates nondisplaced 12 rib fracture. Elsewhere osteopenia, old /// rib fractures, multilevel thoracolumbar degenerative spondylosis, T10-L1/L3 kyphoplasty, and previous cardiothoracic surgery.
--- NOTE | 2018-09-27 11:10 | XRAY ---
Indication: Pain following fall 3 weeks ago. Comparison: None AP pelvis and 2 views of the right hip demonstrates osteopenia, lower lumbar degenerative spondylosis, and heavy scattered vascular calcifications. No other bony, articular, or soft tissue abnormalities.
[2018-09-27 11:28] LABS: BASOPHIL % 0.2 % (0.0-0.4); Basophil (Absolute #) 0.02 (0-0.4); Eosinophil % 1.2 % (0.00-5.0); Eosinophil (Absolute #) 0.13 (0-0.5); Granulocyte Absolute (ANC) 8.86 (1.4-6.9); Hematocrit 31.3 % (35-47); Hemoglobin 10.3 gm/dl (12.0-16.0); Lymphocyte (Absolute #) 0.94 (1.0-4.6); Lymphocytes % 8.8 % (24.0-44.0); Mean Cell Volume 96.3 fl (78-100); Mean Corpuscular Hgb Concent. 32.9 g/dl (32-36); Mean Platelet Volume 9.8 fl (6-9.5); Monocyte (Absolute #) 0.73 (0.0-1.3); Monocytes % 6.8 % (0.0-12.0); Platelet Count 258 K/mm3 (150-450); Red Blood Count 3.25 M/mm3 (4.1-5.4); Red Cell Distribution Width 14.1 % (11.5-14.0); White Blood Count 10.7 K/mm3 (4.0-10.5)
[2018-09-27 11:29] LABS: Mean Corpuscular Hemoglobin 31.6 pg (26-32)
[2018-09-27 11:37] LABS: INR 0.98 (0.8-3.0); PROTIME 11.4 SECONDS (9.95-12.35)
[2018-09-27] MEDS ORDERED: ROCEPHIN 1 Gm-D5w 50 ml Bag** 1 G/50 ML IVPB IV STA (12:35)
[2018-09-27] MEDS ORDERED: ROCEPHIN 1 Gm-D5w 50 ml Bag** 1 G/50 ML IVPB IV ONE (12:36)
[2018-09-27] MEDS ORDERED: ANTIVERT 25 MG PO PRN (14:51)
[2018-09-27] MEDS ORDERED: IBANDRONATE SODIUM 150 MG PO SCH (15:00)
[2018-09-27] MEDS ORDERED: MEDICATION INTERVENTION PO SCH (15:15)
[2018-09-27] MEDS ORDERED: Zestril 10 MG PO STA (16:49)
[2018-09-27] MEDS ORDERED: Zithromax 500 MG/ 250 ML NaCl Premix 500 MG/250 ML IVPB IV ONE (17:00)
[2018-09-27] MEDS: Toprol-Xl 25MG Tablets PO SCH (21:57)
[2018-09-27] MEDS: ZOCOR 20MG PO SCH (21:58)
[2018-09-27] MEDS: TYLENOL 325 MG PO PRN (21:59)
[2018-09-27] MEDS ORDERED: NON-FORMULARY ITEM (Atorvastatin Calcium [Atorvastatin Calcium] 20 MG) PO SCH (22:00)
[2018-09-28] MEDS: NORCO 5/325 MG PO PRN ×2 (04:23→08:16)
[2018-09-28] MEDS: Apresoline 25 MG TABLET PO PRN ×2 (04:23→11:42)
[2018-09-28] MEDS: Sodium Chloride 0.9% 10 ML FLUSH Syringe IV SCH ×3 (06:51→21:37)
[2018-09-28] MEDS: Toprol-Xl 25MG Tablets PO SCH ×2 (07:42→21:36)
--- NOTE | 2018-09-28 07:56 | HP ---
HISTORY OF PRESENT ILLNESS: This is an 88 year-old patient of Dr. Nam who presented to the emergency room. She reports that she had a fall two weeks ago when she fell backwards and hit her head. She was able to call family for help and went to the emergency department then and she reports she stayed in the hospital for a while. She reports today it was hard to catch her breath and she was coughing and had some rib pain. In the emergency department, she was found to have fractured ribs and a left lower lobe pneumonia as well as hyponatremia and anemia. The patient reports at this time her pain is controlled. REVIEW OF SYSTEMS: She reports abdominal pain. Her last stool was this morning and was normal. She denies any dysuria. She reports occasional fever but cannot tell me exactly how high it was. No nausea or vomiting. She reports swelling in her lower extremities. Otherwise review of systems is negative. PAST MEDICAL HISTORY: Coronary artery disease with a bypass 20 years ago x3. She reports Dr. Goddard is her doctor. Gastroesophageal reflux, osteoporosis, hypothyroidism, gastroparesis, hypertension, urinary incontinence. PAST SURGICAL HISTORY: Bypass surgery. Cholecystectomy. MEDICATIONS: Please see the medication reconciliation list which I have reviewed. ALLERGIES: SULFA. SOCIAL HISTORY: She lives alone. She reports she has a lot of help from her family. She denies any tobacco or alcohol use. FAMILY HISTORY: Her mother and had heart problems. Her father and had cancer. PHYSICAL EXAMINATION: VITAL SIGNS: Temperature current 98F, temperature max 98F, heart rate 60 to 64, respiratory rate 16 to 18, blood pressure 142 to 179 over 76 to 98, weight 46.7 kg. Oxygen saturation 96 to 97% on room air. GENERAL: The patient is a pleasant talkative lady sitting up in her bed in no acute distress, drinking her coffee. CVS: She has a regular rate and rhythm. No murmurs, gallops or rubs. She has a well healed scar over her chest. LUNGS: Clear to auscultation bilaterally. No tachypnea. No retractions. No crackles. No wheezes. ABDOMEN: Slightly distended, soft, nontender with hyperactive normal bowel sounds. EXTREMITIES: No clubbing, cyanosis or edema. SKIN: Warm, dry and intact. LABORATORY DATA AND TESTS: On admission her white blood cell count was 10.7 with 82% granulocytes. Sodium 133, carbon dioxide 17, glucose 125. She has had two negative troponins. Chest x-ray was read as left lower lobe infiltrate/atelectasis/effusion, stable chronic obstructive pulmonary disease and chronic bony findings. Rib x-ray showed nondisplaced 12 rib fracture. Please see the radiologist's dictation for the full report. She also had a lumbar spine x-ray, hip x-ray and head CT without any new acute findings. EKG sinus bradycardia with a heart rate of 58, nonspecific T-wave changes. ASSESSMENT AND PLAN: 1) LEFT LOWER LOBE PNEUMONIA: She has been started on ceftriaxone 1 gm IV daily. I will also add azithromycin 500 mg IV daily. 2) FRACTURED RIBS: Her pain, she reports, is currently under control. 3) HYPERTENSION: Her blood pressure at this time is high. Work on adjusting her antihypertensive. 4) OSTEOPOROSIS: Will check a vitamin B12 level and continue with her medications for osteoporosis. 5) HISTORY OF CORONARY ARTERY DISEASE: Currently stable, continue her regular medicine. 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 7) GASTROPARESIS: At this time I have held her Reglan but her primary care provider might want to restart that in the morning. 8) CODE STATUS: I discussed with the patient code status. She does not want to have chest compressions or be placed on a ventilator if she would stop breathing or her heart would stop beating.
[2018-09-28] MEDS: Ditropan XL 5 MG PO SCH (08:00)
[2018-09-28] MEDS: SYNTHROID 50 MCG PO SCH (08:15)
[2018-09-28] MEDS: Pepcid 20 MG PO SCH (08:15)
[2018-09-28] MEDS: Protonix 40MG Tablet PO SCH (08:15)
[2018-09-28] MEDS: ECOTRIN 81 MG PO SCH (08:15)
[2018-09-28] MEDS: Zestril 10 MG PO SCH (08:16)
[2018-09-28] MEDS: THERAGRAN MULTIVITAMIN PO SCH (08:20)
[2018-09-28] MEDS: Zithromax 500 MG/ 250 ML NaCl Premix 500 MG/250 ML IVPB IV SCH (09:46)
[2018-09-28] MEDS: ROCEPHIN 1 Gm-D5w 50 ml Bag** 1 G/50 ML IVPB IV SCH (09:46)
[2018-09-28] MEDS ORDERED: NON-FORMULARY ITEM (Esomeprazole Magnesium [Nexium] 40 MG) PO SCH (10:00)
[2018-09-28] MEDS ORDERED: MULTIVITAMIN PO SCH (10:00)
[2018-09-28] MEDS ORDERED: Lotensin 10 MG PO SCH (10:00)
[2018-09-28 14:29] LABS: Appearance CLEAR (CLEAR); Bilirubin NEGATIVE (NEGATIVE); Blood NEGATIVE Ery/ul (0-5); Glucose NEGATIVE (NEGATIVE); Ketones NEGATIVE (NEGATIVE); Leukocyte Esterase NEGATIVE (NEGATIVE); Mucus SLIGHT /HPF (NEGATIVE); Nitrite NEGATIVE (NEGATIVE); Protein,Urine Dip NEGATIVE (Negative); RBC 0-2 /HPF (0-2); Specific Gravity 1.009 (1.005-1.025); Urobilinogen NEGATIVE mg/dL (0-1)
[2018-09-28 14:32] LABS: Epithelial Cells RARE /HPF (FEW)
[2018-09-28] MEDS: ZOCOR 20MG PO SCH (21:37)
[2018-09-29] MEDS: Apresoline 25 MG TABLET PO PRN ×3 (03:28→20:42)
[2018-09-29] MEDS ORDERED: MORPHINE SULFATE 4 MG INJ IV ONE (05:18)
[2018-09-29] MEDS ORDERED: Lopressor 25MG Tab PO ONE (05:18)
[2018-09-29] MEDS: Sodium Chloride 0.9% 10 ML FLUSH Syringe IV SCH ×3 (05:22→21:34)
[2018-09-29 05:40] LABS: BASOPHIL % 0.8 % (0.0-0.4); Basophil (Absolute #) 0.05 (0-0.4); Eosinophil % 4.6 % (0.00-5.0); Eosinophil (Absolute #) 0.29 (0-0.5); Granulocyte Absolute (ANC) 3.49 (1.4-6.9); Granulocytes % 54.8 % (36.0-66.0); Hematocrit 34.6 % (35-47); Hemoglobin 11.3 gm/dl (12.0-16.0); Lymphocyte (Absolute #) 1.81 (1.0-4.6); Lymphocytes % 28.5 % (24.0-44.0); Mean Cell Volume 96.1 fl (78-100); Mean Corpuscular Hemoglobin 31.3 pg (26-32); Mean Corpuscular Hgb Concent. 32.7 g/dl (32-36); Mean Platelet Volume 9.5 fl (6-9.5); Monocyte (Absolute #) 0.72 (0.0-1.3); Monocytes % 11.3 % (0.0-12.0); Platelet Count 277 K/mm3 (150-450); Red Cell Distribution Width 14.4 % (11.5-14.0); White Blood Count 6.4 K/mm3 (4.0-10.5)
[2018-09-29] MEDS: Protonix 40MG Tablet PO SCH (10:01)
[2018-09-29] MEDS: SYNTHROID 50 MCG PO SCH (10:01)
[2018-09-29] MEDS: ECOTRIN 81 MG PO SCH (10:01)
[2018-09-29] MEDS: Zestril 10 MG PO SCH (10:01)
[2018-09-29] MEDS: THERAGRAN MULTIVITAMIN PO SCH (10:01)
[2018-09-29] MEDS: Ditropan XL 5 MG PO SCH (10:01)
[2018-09-29] MEDS: Pepcid 20 MG PO SCH (10:02)
[2018-09-29] MEDS: Toprol-Xl 25MG Tablets PO SCH ×2 (10:02→21:33)
[2018-09-29] MEDS: ROCEPHIN 1 Gm-D5w 50 ml Bag** 1 G/50 ML IVPB IV SCH (10:35)
[2018-09-29] MEDS: Zithromax 500 MG/ 250 ML NaCl Premix 500 MG/250 ML IVPB IV SCH (11:16)
[2018-09-29] MEDS ORDERED: TYLENOL EXTRA STRENGTH 500 MG ONE (12:03)
[2018-09-29] MEDS: TYLENOL 325 MG PO PRN (12:53)
[2018-09-29] MEDS: NORCO 5/325 MG PO PRN (14:49)
[2018-09-29] MEDS: NITRO-BID 2% UD PACKETS TOP SCH (16:31)
[2018-09-29] MEDS: ZOCOR 20MG PO SCH (21:33)
[2018-09-30] MEDS: NITRO-BID 2% UD PACKETS TOP SCH (04:36)
[2018-09-30] MEDS: Apresoline 25 MG TABLET PO PRN (04:37)
[2018-09-30] MEDS: Sodium Chloride 0.9% 10 ML FLUSH Syringe IV SCH ×3 (06:41→21:02)
[2018-09-30] MEDS: Imdur 30 MG PO SCH (10:15)
[2018-09-30] MEDS: ECOTRIN 81 MG PO SCH (10:15)
[2018-09-30] MEDS: Ditropan XL 5 MG PO SCH (10:15)
[2018-09-30] MEDS: ROCEPHIN 1 Gm-D5w 50 ml Bag** 1 G/50 ML IVPB IV SCH (10:15)
[2018-09-30] MEDS: Protonix 40MG Tablet PO SCH (10:15)
[2018-09-30] MEDS: SYNTHROID 50 MCG PO SCH (10:15)
[2018-09-30] MEDS: Zestril 10 MG PO SCH (10:15)
[2018-09-30] MEDS: THERAGRAN MULTIVITAMIN PO SCH (10:15)
[2018-09-30] MEDS: Toprol-Xl 25MG Tablets PO SCH ×2 (10:15→21:01)
[2018-09-30] MEDS: Pepcid 20 MG PO SCH (10:16)
[2018-09-30] MEDS: Zithromax 500 MG/ 250 ML NaCl Premix 500 MG/250 ML IVPB IV SCH (11:11)
[2018-09-30] MEDS: NORCO 5/325 MG PO PRN (20:34)
[2018-09-30] MEDS: ZOCOR 20MG PO SCH (21:01)
[2018-10-01] MEDS: Apresoline 25 MG TABLET PO PRN (04:39)
[2018-10-01] MEDS: Sodium Chloride 0.9% 10 ML FLUSH Syringe IV SCH (06:05)
[2018-10-01] MEDS ORDERED: MILK OF MAGNESIA 30 ML PO ONE (08:51)
[2018-10-01 09:35] LABS: ALBUMIN 4.1 g/dL (3.5-5.0); ALKALINE PHOSPHATASE 116 U/L (38-126); ANION GAP 15.7 MEQ/L (5-15); BLOOD UREA NITROGEN 13 mg/dL (7-17); CHLORIDE 99 mmol/L (98-107); Calcium 9.9 mg/dL (8.4-10.2); Carbon Dioxide 23 mmol/L (22-30); Creatinine 1 0.82 mg/dL (0.52-1.04); Glucose 186 mg/dL (74-106); Hematocrit 36.9 % (35-47); Hemoglobin 11.9 gm/dl (12.0-16.0); Mean Cell Volume 96.6 fl (78-100); Mean Corpuscular Hgb Concent. 32.2 g/dl (32-36); Platelet Count 327 K/mm3 (150-450); Potassium 3.8 mmol/L (3.5-5.1); Red Blood Count 3.82 M/mm3 (4.1-5.4); Red Cell Distribution Width 14.3 % (11.5-14.0); SGOT/AST 23 U/L (14-36); SGPT/ALT 15 U/L (0-35); SODIUM 135 mmol/L (137-145); Total Protein 7.9 g/dL (6.3-8.2); White Blood Count 7.4 K/mm3 (4.0-10.5)
[2018-10-01 09:36] LABS: Mean Corpuscular Hemoglobin 31.1 pg (26-32)
[2018-10-01] MEDS: Imdur 30 MG PO SCH (09:58)
[2018-10-01] MEDS: Zestril 10 MG PO SCH (09:58)
[2018-10-01] MEDS: SYNTHROID 50 MCG PO SCH (09:58)
[2018-10-01] MEDS: Toprol-Xl 25MG Tablets PO SCH (09:58)
[2018-10-01] MEDS: THERAGRAN MULTIVITAMIN PO SCH (09:58)
[2018-10-01] MEDS: Ditropan XL 5 MG PO SCH (09:59)
[2018-10-01] MEDS: Protonix 40MG Tablet PO SCH (09:59)
[2018-10-01] MEDS: ECOTRIN 81 MG PO SCH (09:59)
[2018-10-01] MEDS: Pepcid 20 MG PO SCH (09:59)
[2018-10-01] MEDS ORDERED: Miralax Powder 17GM PACKET PO SCH (10:00)
[2018-10-01 10:54] LABS: Appearance CLEAR (CLEAR); Bilirubin NEGATIVE (NEGATIVE); Blood NEGATIVE Ery/ul (0-5); Glucose NEGATIVE (NEGATIVE); Ketones NEGATIVE (NEGATIVE); Leukocyte Esterase NEGATIVE (NEGATIVE); Nitrite NEGATIVE (NEGATIVE); Protein,Urine Dip NEGATIVE (Negative); Specific Gravity 1.008 (1.005-1.025); Urobilinogen NEGATIVE mg/dL (0-1)
--- NOTE | 2018-10-01 10:55 | PCM.DCORD ---
- Discharge Discharge Date: 10/01/18 Condition: Fair Prescriptions: New Isosorbide Mononitrate 30 mg [Imdur 30 MG] 30 mg PO DAILY #30 tab Continue Levothyroxine Sodium [Synthroid] 50 mcg PO DAILY Esomeprazole Magnesium [Nexium] 40 mg PO DAILY Multivitamin [Daily Multivitamin] 1 tab PO DAILY Ibandronate Sodium 150 mg PO UD Tolterodine Tartrate [Detrol LA] 4 mg PO DAILY Oxybutynin Chloride [Oxybutynin Chloride ER] 5 mg PO BID Metoprolol Succinate 25 mg Xl* [Toprol-Xl 25MG Tablets] 12.5 mg PO BID Metoclopramide HCl 10 mg [Reglan 10 MG] 10 mg PO BID Meclizine HCl 25 mg PO TIDPRN PRN PRN Reason: Dizziness Famotidine [Pepcid] 40 mg PO DAILY Aspirin EC 81 mg [Ecotrin 81 mg] 162 mg PO DAILY Nitroglycerin 0.4 mg Tablet [Nitrostat 0.4 MG Tablet] 0.4 mg SL UD #1 bottle Potassium Chloride 8 meq PO DAILY Atorvastatin Calcium 20 mg PO HS Additional Instructions: RESIDENTIAL ORDERS: OCCUPATIONAL THERAPY, PHYSICAL THERAPY, ACTIVITY TOLERATED, REG DIET, 02 2L NC AT ALL TIMES Follow up with: SAÚL KEATING [Primary Care Provider] - 1 Week
[2018-10-01 16:32] VITALS: BP 184/81; PULSE 63; O2SAT 95
--- NOTE | 2018-10-02 10:40 | HP ---
CHIEF COMPLAINT: Generalized deterioration over the last several months, hypotension, rib fracture from falling. HISTORY OF PRESENT ILLNESS: The patient is an 88 year-old white female who presented to the hospital having generalized deterioration over the past several months. She has gotten to the point where she could no longer stay at home by herself where she currently lives alone. The patient had fallen a couple of weeks ago and sustained a rib fracture. She had been seen in the office and was complaining of dizzy headed and was found to be hypotensive with a blood pressure in the 80's systolic. We took her off some of her blood pressure medications. When she represented she was found to have pneumonia on the chest x-ray. She was started on IV antibiotics and admitted to the hospital. PAST MEDICAL/SURGICAL HISTORY: Significant for multiple rib fractures and kyphosis due to compression fractures of the spine. The patient has had kyphoplasty surgery before. She had some hypotension requiring that we take her off medications of lisinopril and reduce her metoprolol dosage but this has not seemed to help. HOME MEDICATIONS: Aspirin 81 mg a day, atorvastatin 20 mg at night, Nexium 40 mg a day, famotidine 40 mg daily. She is on Boniva once a month, Synthroid 50 mcg a day, meclizine 25 mg t.i.d. PRN dizziness, Reglan 10 mg a.c. and h.s., Metoprolol 25 mg a day, PRN nitroglycerin, oxybutynin 5 mg b.i.d. ALLERGIES: NKDA. PHYSICAL EXAMINATION: Revealed a frail elderly, white female in no obvious distress. HEENT: Normocephalic, atraumatic. Pupils equal round reactive to light. Extraocular movements intact. Oropharynx is pink and moist. NECK: Supple without lymphadenopathy, thyromegaly or JVD. CHEST: Clear to auscultation with good air movement bilaterally. HEART: Regular rate and rhythm without murmurs, rubs or gallops. ABDOMEN: Soft without palpable masses. EXTREMITIES: Without cyanosis, clubbing or edema. NEUROLOGIC: The patient was somewhat confused and she is normally clear headed. No focal deficits were noted. LAB DATA AND TESTS: The patient's chest x-ray showed possible early infiltrate and showed the old rib fractures. ASSESSMENT: It was felt that the patient was in need of admission for IV antibiotics, IV fluid hydration and monitor her blood pressures, also physical therapy, occupational therapy and speech therapy evaluations for possible rehab admission. The patient's family is aware of our plan and is in agreement with it at this point in time. They realize finally that she can no longer stay home by herself.
--- NOTE | 2018-10-03 14:10 | DS ---
DISCHARGE DIAGNOSES: 1) PNEUMONIA. 2) RIB FRACTURES. 3) HYPERTENSION. 4) CHEST PAIN. 5) OSTEOPOROSIS. HISTORY: The patient is an 88 year-old white female who had been living at home having general deterioration over the past several months. She has been living at home by herself. She had a fall two weeks ago sustaining a rib fracture. She has had general deterioration by the time she had seen again this most recent time a chest x-ray showed her to be developing an infiltrate concerning for pneumonia. The patient was therefore admitted to the hospital for IV antibiotics, IV fluids and evaluation by PT, OT and ST. The plan was that the patient would no longer be able to stay at home by herself she received PT to get her back to being strong enough that maybe eventually she would be able to go back home. HOSPITAL COURSE: The patient was given IV antibiotics, IV fluids. She had improved somewhat but was still quite weak and complained of being dizzy headed at times. She had an episode of chest pain that ruled out for myocardial infarction but the patient's blood pressure which had been low in the office a few days ago had shown it to be increasingly hypertensive requiring placing her back on the Lotensin and increasing her metoprolol dose and even at this point adding isosorbide mononitrate. The patient finished her three day stay as required by her insurance company for being able to be admitted to rehab. She had rehab evaluation done by the therapy department and she was felt to be a candidate for therapy. She was therefore discharged to a rehab facility on the afternoon of 10/01/2018. She will continue her home medications as indicated in her history and physical. Adjustments will be made at the residential based on how she does with her blood pressure.
== END 2018-10-01 15:37 | DRG 194 ==
LOC: ED 09:08 → MED SURG 12:58 → OBSVTOIN 09-28 13:00
PROVIDERS: ADMIT Internal Medicine; ATTEND Family Medicine
DX: J18.9 Pneumonia, unspecified organism (principal); S22.31XA Fracture of one rib, right side, initial encounter for closed fracture; E87.1 Hypo-osmolality and hyponatremia; D64.9 Anemia, unspecified; I10 Essential (primary) hypertension; J44.9 Chronic obstructive pulmonary disease, unspecified; E03.9 Hypothyroidism, unspecified; R42 Dizziness and giddiness; M81.0 Age-related osteoporosis without current pathological fracture; R32 Unspecified urinary incontinence; R07.9 Chest pain, unspecified; R53.1 Weakness; K31.84 Gastroparesis; I95.9 Hypotension, unspecified; Z79.899 Other long term (current) drug therapy; Z91.81 History of falling; Z86.79 Personal history of other diseases of the circulatory system; Z95.1 Presence of aortocoronary bypass graft
CPT/HCPCS: 36000; 36415; 70450; 71045; 71100; 72100; 73502; 80053; 81001; 82962; 84484; 85025; 85027; 85610; 93005; 93041; 93268; 94760; 94762; 96365; 96374; 97161; 97165; 97530; 99285; G0378; 96375; J0456; J0696; J2270; A9270-GY

== ENCOUNTER 2018-11-08 17:54 | Inpatient (IN) | payer MEDICARE ==
[2018-11-08] MEDS ORDERED: Sodium Chloride 0.9% 1000 ML 1,000 ML IV STA ×2 (18:19→19:14)
--- NOTE | 2018-11-08 18:25 | ERPHSYRPT ---
- History of Present Illness Source: skilled nursing records Exam Limitations: clinical condition (patient extremely weak, not speaking) Timing/Duration: today Severity: moderate Modifying Factors: Improves With: nothing Associated Symptoms: weakness, No nausea, No vomiting, No abdominal pain, No shortness of breath, No heartburn, No diaphoresis, No cough, No chills, No chest pain, No fever, No headaches, No loss of appetite, No malaise, No rash, No syncope, No seizure Hx Tetanus, Diphtheria Vaccination/Date Given: No Hx Influenza Vaccination/Date Given: Yes Hx Pneumococcal Vaccination/Date Given: Yes <DEREK SIMEON - Last Filed: 11/08/18 19:41> <BOO MENDIOLA - Last Filed: 11/08/18 20:23> - History of Present Illness Time Seen by Provider: 11/08/18 18:21 Physician History: 88-year-old white female with history of cataracts, coronary disease, GERD, ulcers, Parkinson's Patient brought by medics from skilled nursing with complaint that the patient is extremely weak she is unable to hold her head up. On arrival patient is quite pale in appearance she is able to respond to verbal command she has minimal movement and she is not speaking at this time. She is appears to be very weak and somewhat pale in appearance. Past medical history includes cataracts, coronary disease, GERD, ulcers, Parkinson's disease. Past surgical history includes CABG, cholecystectomy, orthopedic surgery, kyphoplasty. (DEREK SIMEON) Allergies/Adverse Reactions: Sulfa (Sulfonamide Antibiotics) Allergy (Intermediate, Verified 11/08/18 18:47) stated "made me feel funny" Home Medications: Esomeprazole Magnesium [Nexium] 40 mg PO DAILY 08/18/14 [History] Levothyroxine Sodium [Synthroid] 50 mcg PO DAILY 08/18/14 [History] Ibandronate Sodium 150 mg PO UD 10/27/15 [History] Multivitamin [Daily Multivitamin] 1 tab PO DAILY 10/27/15 [History] Aspirin EC 81 mg [Ecotrin 81 mg] 162 mg PO DAILY 06/25/18 [History] Famotidine [Pepcid] 40 mg PO DAILY 06/25/18 [History] Meclizine HCl 25 mg PO TIDPRN PRN 06/25/18 [History] Metoclopramide HCl 10 mg [Reglan 10 MG] 10 mg PO BID 06/25/18 [History] Metoprolol Succinate 25 mg Xl* [Toprol-Xl 25MG Tablets] 12.5 mg PO BID [History] Tolterodine Tartrate [Detrol LA] 4 mg PO DAILY 06/25/18 [History] Atorvastatin Calcium 20 mg PO HS 08/16/18 [History] Potassium Chloride 8 meq PO DAILY 08/16/18 [History] Enoxaparin Sodium [Lovenox] 30 mg SQ DAILY 11/08/18 [History] - Review of Systems Constitutional: Weakness Eyes: No Symptoms Ears, Nose, & Throat: No Symptoms Respiratory: No Cough, No Dyspnea Cardiac: No Chest Pain, No Edema, No Syncope Abdominal/Gastrointestinal: No Abdominal Pain, No Nausea, No Vomiting, No Diarrhea Genitourinary Symptoms: No Dysuria Musculoskeletal: No Back Pain, No Neck Pain Skin: No Rash Neurological: Other (patient arrives very weak and not speaking) Psychological: No Symptoms Endocrine: No Symptoms All Other Systems: Unable due to condition (unable to obtain review of systems from the patient to condition) <DEREK SIMEON - Last Filed: 11/08/18 19:41> - Past Medical History Pertinent Past Medical History: Yes Neurological History: No Pertinent History, Other ENT History: Cataracts Cardiac History: Coronary Artery Disease Respiratory History: COPD Endocrine Medical History: No Pertinent History Musculoskeletal History: Arthritis GI Medical History: GERD, Ulcer History: No Pertinent History Psycho-Social History: No Pertinent History Female Reproductive Disorders: No Pertinent History Other Medical History: Parkinson's disease - Past Surgical History Past Surgical History: Yes Neuro Surgical History: No Pertinent History Cardiac: CABG Respiratory: No Pertinent History Gastrointestinal: Cholecystectomy Genitourinary: No Pertinent History Musculoskeletal: No Pertinent History, Orthopedic Surgery Female Surgical History: No Pertinent History Other Surgical History: kyphoplasty - Social History Smoking Status: Never smoker Exposure to second hand smoke: No Alcohol Use: None Drug Use: none Patient Lives Alone: Yes Significant Family History: no pertinent family hx <DEREK SIMEON - Last Filed: 11/08/18 19:41> - Physical Exam General Appearance: moderate distress, other (Elderly femalepale in appearance week) Eye Exam: PERRL/EOMI, eyes nml inspection Ears, Nose, Throat Exam: normal ENT inspection, TMs normal, pharynx normal, moist mucous membranes Neck Exam: normal inspection, non-tender, supple, full range of motion Respiratory Exam: normal breath sounds, lungs clear, No respiratory distress Cardiovascular Exam: regular rate/rhythm, normal heart sounds, normal peripheral pulses, capillary refill <2 sec Gastrointestinal/Abdomen Exam: soft, normal bowel sounds, No tenderness, No mass Back Exam: normal inspection, normal range of motion, No CVA tenderness, No vertebral tenderness Extremity Exam: normal inspection, normal range of motion, pelvis stable 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 as tested, other (patient somewhat somnolent responds to verbal stimuli does not speak) Skin Exam: pale <DEREK SIMEON - Last Filed: 11/08/18 19:41> - Nursing Vital Signs Nursing Vital Signs: Initial Vital Signs Temperature 95.5 F 11/08/18 18:18 Pulse Rate 92 H 11/08/18 18:18 Respiratory Rate 16 11/08/18 18:18 Blood Pressure 178/112 11/08/18 18:18 O2 Sat by Pulse Oximetry 96 11/08/18 18:18 Pain Scale Pain Intensity 0 - Course Nursing assessment & vital signs reviewed: Yes EKG Interpreted by Me: RATE (89bpm), Sinus Rhythm, NORMAL AXIS, Other (EKG: Sinus rhythm, 89 beats per minute, no acute ST or T wave changes noted, compared to September 27, 2017) - Radiology Exams Chest X-ray Interpretation: Interpreted by me (chest x-ray: Early infiltrate versus atelectasis right lung base) - CT Exams Head CT Interpretation: Discussed w/radiologist (head CT : Impression: Stable nonacute senile brain compared to September 27, 2018) <DEREK SIMEON - Last Filed: 11/08/18 19:41> Ordered Tests: Active Orders 24 hr Category Date Time Status EKG-ER Only STAT Care 11/08/18 18:19 Active IV Insertion STAT Care 11/08/18 18:19 Active CHEST 1 VIEW (PORTABLE) Stat Exams 11/08/18 18:19 Taken HEAD WITHOUT CONTRAST [CT] Stat Exams 11/08/18 18:21 Taken AMYLASE Stat Lab 11/08/18 19:00 Completed BLOOD CULTURE Stat Lab 11/08/18 19:12 Received CBC W DIFF Stat Lab 11/08/18 19:00 Completed CMP Stat Lab 11/08/18 19:00 Completed CULTURE,URINE Stat Lab 11/08/18 18:34 Ordered LIPASE Stat Lab 11/08/18 19:00 Completed Lactic Acid Stat Lab 11/08/18 19:22 Completed PROTIME WITH INR Stat Lab 11/08/18 19:00 Completed PTT Stat Lab 11/08/18 19:00 Completed TROPONIN Q3H Lab 11/08/18 19:00 Completed TROPONIN Q3H Lab 11/08/18 21:30 Ordered TROPONIN Q3H Lab 11/09/18 00:30 Ordered TROPONIN Q3H Lab 11/09/18 03:30 Ordered TROPONIN Q3H Lab 11/09/18 06:30 Ordered UA W/RFX UR CULTURE Stat Lab 11/08/18 18:34 Completed VENOUS BLOOD GAS Urgent Lab 11/08/18 19:22 Completed Transfer Order Routine Transfer 11/08/18 Ordered Medication Summary Discontinued Medications Generic Name Dose Route Start Last Admin Trade Name Freq PRN Reason Stop Dose Admin Sodium Chloride 1,000 mls @ 999 mls/hr 11/08/18 18:19 11/08/18 18:52 Sodium Chloride 0.9% 1000 Ml IV 11/08/18 19:19 999 mls/hr .Q1H1M STA Administration Sodium Chloride Confirm 11/08/18 18:43 Sodium Chloride 0.9% 1000 Ml Administered 11/08/18 18:44 Dose 1,000 mls @ ud .ROUTE .STK-MED ONE Ceftriaxone Sodium/Dextrose 1 g in 50 mls @ 100 mls/hr 11/08/18 19:01 19:13 Rocephin 1 Gm-D5w 50 Ml Bag IV 11/08/18 19:30 100 mls/hr STAT STA 100 mls/hr Administration Ceftriaxone Sodium/Dextrose Confirm 11/08/18 19:11 Rocephin 1 Gm-D5w 50 Ml Bag Administered 11/08/18 19:12 Dose 1 g in 50 mls @ ud IV .STK-MED ONE Sodium Chloride 1,000 mls @ 999 mls/hr 11/08/18 19:14 11/08/18 19:59 Sodium Chloride 0.9% 1000 Ml IV 11/08/18 20:14 999 mls/hr .Q1H1M STA Administration Sodium Chloride Confirm 11/08/18 19:58 Sodium Chloride 0.9% 1000 Ml Administered 11/08/18 19:59 Dose 1,000 mls @ ud .ROUTE .STK-MED ONE Lab/Rad Data: Laboratory Result Diagrams 11/08/18 19:00 11/08/18 19:00 Laboratory Results 11/08/18 11/08/18 11/08/18 Range/Units 19:22 19:22 19:00 WBC (4.0-10.5) K/mm3 RBC (4.1-5.4) M/mm3 Hgb (12.0-16.0) gm/dl Hct (35-47) % MCV (78-100) fl MCH (26-32) pg MCHC (32-36) g/dl RDW (11.5-14.0) % Plt Count (150-450) K/mm3 MPV (6-9.5) fl Gran % (36.0-66.0) % Eos # (Auto) (0-0.5) Absolute Lymphs (auto) (1.0-4.6) Absolute Monos (auto) (0.0-1.3) Lymphocytes % (24.0-44.0) % Monocytes % (0.0-12.0) % Eosinophils % (0.00-5.0) % Basophils % (0.0-0.4) % Absolute Granulocytes (1.4-6.9) Basophils # (0-0.4) PT (9.95-12.35) SECONDS INR (0.8-3.0) APTT (25.3-37.0) SECONDS pO2/FiO2 Ratio 21.0 % VBG pH 7.33 (7.32-7.42) VBG pCO2 at Pat Temp 43 (42-55) mm/Hg VBG pO2 at Pat Temp 33 (25-40) mm/Hg VBG HCO3 22.7 (22-28) meq/L VBG O2 Sat (Scarlett) 63.3 L (95-100) VBG Base Excess -3.2 L (-2.0-2.0) VBG Hemoglobin 11.1 VBG Carboxyhemoglobin 2.9 (0.0-6.9) % T HGB POC Potassium 4.3 (3.5-5.1) Sodium (137-145) mmol/L Potassium (3.5-5.1) mmol/L Chloride (98-107) mmol/L Carbon Dioxide (22-30) mmol/L Anion Gap (5-15) MEQ/L BUN (7-17) mg/dL Creatinine (0.52-1.04) mg/dL Estimated GFR ML/MIN Glucose (74-106) mg/dL Lactic Acid 1.7 (0.4-2.0) Calcium (8.4-10.2) mg/dL Total Bilirubin (0.2-1.3) mg/dL AST (14-36) U/L ALT (0-35) U/L Alkaline Phosphatase (38-126) U/L Troponin I 0.052 H* (0.000-0.034) ng/mL Serum Total Protein (6.3-8.2) g/dL Albumin (3.5-5.0) g/dL Amylase (30-110) U/L Lipase (23-300) U/L Urine Color (YELLOW) Urine Appearance (CLEAR) Urine pH (5-6) Ur Specific Benson (1.005-1.025) Urine Protein (Negative) Urine Ketones (NEGATIVE) Urine Blood (0-5) Shaun/ul Urine Nitrite (NEGATIVE) Urine Bilirubin (NEGATIVE) Urine Urobilinogen (0-1) mg/dL Ur Leukocyte Esterase (NEGATIVE) Urine WBC (Auto) (0-5) /HPF Urine RBC (Auto) (0-2) /HPF U Hyaline Cast (Auto) (0-2) /LPF U Epithel Cells (Auto) (FEW) /HPF Urine Bacteria (Auto) (NEGATIVE) /HPF Urine Mucus (Auto) (NEGATIVE) /HPF Urine Culture Reflexed (NO) Urine Glucose (NEGATIVE) mg/dL 11/08/18 11/08/18 11/08/18 Range/Units 19:00 19:00 19:00 WBC 7.8 (4.0-10.5) K/mm3 RBC 3.43 L (4.1-5.4) M/mm3 Hgb 10.8 L (12.0-16.0) gm/dl Hct 33.4 L (35-47) % MCV 97.4 (78-100) fl MCH 31.4 (26-32) pg MCHC 32.3 (32-36) g/dl RDW 15.5 H (11.5-14.0) % Plt Count 316 (150-450) K/mm3 MPV 9.4 (6-9.5) fl Gran % 73.7 H (36.0-66.0) % Eos # (Auto) 0.16 (0-0.5) Absolute Lymphs (auto) 1.16 (1.0-4.6) Absolute Monos (auto) 0.69 (0.0-1.3) Lymphocytes % 15.0 L (24.0-44.0) % Monocytes % 8.9 (0.0-12.0) % Eosinophils % 2.1 (0.00-5.0) % Basophils % 0.3 (0.0-0.4) % Absolute Granulocytes 5.72 (1.4-6.9) Basophils # 0.02 (0-0.4) PT 10.7 (9.95-12.35) SECONDS INR 0.92 (0.8-3.0) APTT 28.2 (25.3-37.0) SECONDS pO2/FiO2 Ratio % VBG pH (7.32-7.42) VBG pCO2 at Pat Temp (42-55) mm/Hg VBG pO2 at Pat Temp (25-40) mm/Hg VBG HCO3 (22-28) meq/L VBG O2 Sat (Scarlett) (95-100) VBG Base Excess (-2.0-2.0) VBG Hemoglobin VBG Carboxyhemoglobin (0.0-6.9) % T HGB POC Potassium (3.5-5.1) Sodium 134 L (137-145) mmol/L Potassium 4.4 (3.5-5.1) mmol/L Chloride 101 (98-107) mmol/L Carbon Dioxide 22 (22-30) mmol/L Anion Gap 14.8 (5-15) MEQ/L BUN 17 (7-17) mg/dL Creatinine 0.69 (0.52-1.04) mg/dL Estimated GFR > 60.0 ML/MIN Glucose 147 H (74-106) mg/dL Lactic Acid (0.4-2.0) Calcium 9.1 (8.4-10.2) mg/dL Total Bilirubin 0.50 (0.2-1.3) mg/dL AST 25 (14-36) U/L ALT 14 (0-35) U/L Alkaline Phosphatase 134 H (38-126) U/L Troponin I (0.000-0.034) ng/mL Serum Total Protein 6.9 (6.3-8.2) g/dL Albumin 3.7 (3.5-5.0) g/dL Amylase 112 H (30-110) U/L Lipase 220 (23-300) U/L Urine Color (YELLOW) Urine Appearance (CLEAR) Urine pH (5-6) Ur Specific Benson (1.005-1.025) Urine Protein (Negative) Urine Ketones (NEGATIVE) Urine Blood (0-5) Shaun/ul Urine Nitrite (NEGATIVE) Urine Bilirubin (NEGATIVE) Urine Urobilinogen (0-1) mg/dL Ur Leukocyte Esterase (NEGATIVE) Urine WBC (Auto) (0-5) /HPF Urine RBC (Auto) (0-2) /HPF U Hyaline Cast (Auto) (0-2) /LPF U Epithel Cells (Auto) (FEW) /HPF Urine Bacteria (Auto) (NEGATIVE) /HPF Urine Mucus (Auto) (NEGATIVE) /HPF Urine Culture Reflexed (NO) Urine Glucose (NEGATIVE) mg/dL 11/08/18 Range/Units 18:34 WBC (4.0-10.5) K/mm3 RBC (4.1-5.4) M/mm3 Hgb (12.0-16.0) gm/dl Hct (35-47) % MCV (78-100) fl MCH (26-32) pg MCHC (32-36) g/dl RDW (11.5-14.0) % Plt Count (150-450) K/mm3 MPV (6-9.5) fl Gran % (36.0-66.0) % Eos # (Auto) (0-0.5) Absolute Lymphs (auto) (1.0-4.6) Absolute Monos (auto) (0.0-1.3) Lymphocytes % (24.0-44.0) % Monocytes % (0.0-12.0) % Eosinophils % (0.00-5.0) % Basophils % (0.0-0.4) % Absolute Granulocytes (1.4-6.9) Basophils # (0-0.4) PT (9.95-12.35) SECONDS INR (0.8-3.0) APTT (25.3-37.0) SECONDS pO2/FiO2 Ratio % VBG pH (7.32-7.42) VBG pCO2 at Pat Temp (42-55) mm/Hg VBG pO2 at Pat Temp (25-40) mm/Hg VBG HCO3 (22-28) meq/L VBG O2 Sat (Scarlett) (95-100) VBG Base Excess (-2.0-2.0) VBG Hemoglobin VBG Carboxyhemoglobin (0.0-6.9) % T HGB POC Potassium (3.5-5.1) Sodium (137-145) mmol/L Potassium (3.5-5.1) mmol/L Chloride (98-107) mmol/L Carbon Dioxide (22-30) mmol/L Anion Gap (5-15) MEQ/L BUN (7-17) mg/dL Creatinine (0.52-1.04) mg/dL Estimated GFR ML/MIN Glucose (74-106) mg/dL Lactic Acid (0.4-2.0) Calcium (8.4-10.2) mg/dL Total Bilirubin (0.2-1.3) mg/dL AST (14-36) U/L ALT (0-35) U/L Alkaline Phosphatase (38-126) U/L Troponin I (0.000-0.034) ng/mL Serum Total Protein (6.3-8.2) g/dL Albumin (3.5-5.0) g/dL Amylase (30-110) U/L Lipase (23-300) U/L Urine Color YELLOW (YELLOW) Urine Appearance SLIGHTLY CLOUDY (CLEAR) Urine pH 5.0 (5-6) Ur Specific Benson 1.016 (1.005-1.025) Urine Protein 30 (Negative) Urine Ketones NEGATIVE (NEGATIVE) Urine Blood SMALL (0-5) Shaun/ul Urine Nitrite NEGATIVE (NEGATIVE) Urine Bilirubin NEGATIVE (NEGATIVE) Urine Urobilinogen NEGATIVE (0-1) mg/dL Ur Leukocyte Esterase MODERATE (NEGATIVE) Urine WBC (Auto) 26-50 (0-5) /HPF Urine RBC (Auto) 11-15 (0-2) /HPF U Hyaline Cast (Auto) 3-5 (0-2) /LPF U Epithel Cells (Auto) RARE (FEW) /HPF Urine Bacteria (Auto) NONE (NEGATIVE) /HPF Urine Mucus (Auto) SLIGHT (NEGATIVE) /HPF Urine Culture Reflexed ORDERED SEPARATELY (NO) Urine Glucose NEGATIVE (NEGATIVE) mg/dL - Progress Progress: improved <DEREK SIMEON - Last Filed: 11/08/18 19:41> - Progress Counseled pt/family regarding: lab results, diagnosis, need for follow-up, rad results <BOO MENDIOLA - Last Filed: 11/08/18 20:23> - Progress Progress Note: 11/08/18 19:41 The patient's case will be transferred to Dr. Mendiola secondary to shift change. Case has been discussed with Dr. Mendiola. Does this (DEREK SIMEON) 11/08/18 20:[address] dueñas. originally family stated after dr. dueñas gave recommendation to discharge back to skilled nursing with iv for iv antibx, they were ok with that plan. however, a new family member desired pt to be admitted and tx in the hospital. i called dr. dueñas back and he accepts pt for observation (BOO MENDIOLA) <DEREK SIMEON - Last Filed: 11/08/18 19:41> - Departure Departure Disposition: Home Critical Care Time: No <BOO MENDIOLA - Last Filed: 11/08/18 20:23> - Departure Clinical Impression: UTI (urinary tract infection) Condition: Fair Referrals: DEWAYNE BLANCO [Primary Care Provider] -
[2018-11-08] MEDS ORDERED: Sodium Chloride 0.9% 1000 ML 1,000 ML ONE ×2 (18:43→19:58)
[2018-11-08] MEDS ORDERED: ROCEPHIN 1 Gm-D5w 50 ml Bag** 1 G/50 ML IVPB IV STA (19:01)
[2018-11-08 19:03] LABS: Appearance SLIGHTLY CLOUDY (CLEAR); Bilirubin NEGATIVE (NEGATIVE); Blood SMALL Ery/ul (0-5); Epithelial Cells RARE /HPF (FEW); Glucose NEGATIVE (NEGATIVE); Ketones NEGATIVE (NEGATIVE); Leukocyte Esterase MODERATE (NEGATIVE); Mucus SLIGHT /HPF (NEGATIVE); Nitrite NEGATIVE (NEGATIVE); Protein,Urine Dip 30 (Negative); Specific Gravity 1.016 (1.005-1.025); Urobilinogen NEGATIVE mg/dL (0-1); WBC 26-50 /HPF (0-5)
[2018-11-08] MEDS ORDERED: ROCEPHIN 1 Gm-D5w 50 ml Bag** 1 G/50 ML IVPB IV ONE (19:11)
[2018-11-08 19:24] LABS: BASOPHIL % 0.3 % (0.0-0.4); Basophil (Absolute #) 0.02 (0-0.4); Eosinophil % 2.1 % (0.00-5.0); Eosinophil (Absolute #) 0.16 (0-0.5); Granulocyte Absolute (ANC) 5.72 (1.4-6.9); Granulocytes % 73.7 % (36.0-66.0); Hematocrit 33.4 % (35-47); Hemoglobin 10.8 gm/dl (12.0-16.0); Lymphocyte (Absolute #) 1.16 (1.0-4.6); Mean Cell Volume 97.4 fl (78-100); Mean Corpuscular Hgb Concent. 32.3 g/dl (32-36); Mean Platelet Volume 9.4 fl (6-9.5); Monocyte (Absolute #) 0.69 (0.0-1.3); Monocytes % 8.9 % (0.0-12.0); Platelet Count 316 K/mm3 (150-450); Red Blood Count 3.43 M/mm3 (4.1-5.4); Red Cell Distribution Width 15.5 % (11.5-14.0); White Blood Count 7.8 K/mm3 (4.0-10.5)
[2018-11-08 19:25] LABS: INR 0.92 (0.8-3.0); PROTIME 10.7 SECONDS (9.95-12.35)
[2018-11-08 19:26] LABS: Mean Corpuscular Hemoglobin 31.4 pg (26-32)
[2018-11-08 19:27] LABS: PTT 28.2 SECONDS (25.3-37.0)
[2018-11-08 19:30] LABS: ALBUMIN 3.7 g/dL (3.5-5.0); ALKALINE PHOSPHATASE 134 U/L (38-126); AMYLASE 112 U/L (30-110); ANION GAP 14.8 MEQ/L (5-15); BLOOD UREA NITROGEN 17 mg/dL (7-17); CHLORIDE 101 mmol/L (98-107); Calcium 9.1 mg/dL (8.4-10.2); Carbon Dioxide 22 mmol/L (22-30); Creatinine 1 0.69 mg/dL (0.52-1.04); Glucose 147 mg/dL (74-106); LIPASE 220 U/L (23-300); Potassium 4.4 mmol/L (3.5-5.1); SGOT/AST 25 U/L (14-36); SGPT/ALT 14 U/L (0-35); SODIUM 134 mmol/L (137-145); Total Protein 6.9 g/dL (6.3-8.2)
[2018-11-08 19:31] LABS: VBG BASE EXCESS -3.2 (-2.0-2.0); VBG CARBOXYHEMOGLOBIN 2.9 % T HGB (0.0-6.9); VBG HCO3- 22.7 meq/L (22-28); VBG HEMOGLOBIN 11.1; VBG O2 SATURATION 63.3 (95-100); VBG POTASSIUM 4.3 (3.5-5.1); VBG pH 7.33 (7.32-7.42)
[2018-11-08] MEDS ORDERED: TYLENOL 325 MG PO PRN (21:22)
[2018-11-08] MEDS ORDERED: Zofran 4 MG/2 ML VIAL IV PRN (21:22)
[2018-11-08] MEDS: Sodium Chloride 0.9% 1000 ML 1,000 ML IV SCH (21:34)
[2018-11-09 05:39] LABS: BASOPHIL % 0.3 % (0.0-0.4); Basophil (Absolute #) 0.02 (0-0.4); Eosinophil (Absolute #) 0.15 (0-0.5); Granulocyte Absolute (ANC) 5.18 (1.4-6.9); Granulocytes % 68.6 % (36.0-66.0); Hematocrit 34.7 % (35-47); Hemoglobin 10.9 gm/dl (12.0-16.0); Lymphocyte (Absolute #) 1.43 (1.0-4.6); Mean Corpuscular Hgb Concent. 31.4 g/dl (32-36); Monocyte (Absolute #) 0.76 (0.0-1.3); Monocytes % 10.1 % (0.0-12.0); Platelet Count 305 K/mm3 (150-450); Red Blood Count 3.54 M/mm3 (4.1-5.4); Red Cell Distribution Width 15.5 % (11.5-14.0); White Blood Count 7.5 K/mm3 (4.0-10.5)
[2018-11-09 05:46] LABS: Mean Corpuscular Hemoglobin 30.7 pg (26-32)
[2018-11-09 06:24] LABS: Slide Review 1 YES
--- NOTE | 2018-11-09 08:37 | PCM.HP ---
History of Present Illness - Chief Complaint Chief Complaint: UTI, altered mental status History of Present Illness: is a 88 year old female from [place] who was brought in with increasing weakness and poor functional status, difficulty eating for the last 2 days. she denies any complaints of pain at present, found to have UTI in the ER and possible infiltrate right lower lung. - Review of Systems Constitutional: Weakness, No Fever, No Chills Respiratory: No Cough, No Short Of Breath Cardiac: No Chest Pain, No Edema, No Syncope Abdominal/Gastrointestinal: No Abdominal Pain, No Nausea, No Vomiting, No Diarrhea Genitourinary Symptoms: No Dysuria All Other Systems: Reviewed and Negative Medications & Allergies Home Medications: Home Medication List Esomeprazole Magnesium [Nexium] 40 mg PO DAILY 08/18/14 [History Confirmed 11/08] Levothyroxine Sodium [Synthroid] 50 mcg PO DAILY 08/18/14 [History Confirmed ] Ibandronate Sodium 150 mg PO UD 10/27/15 [History Confirmed 11/08/18] Multivitamin [Daily Multivitamin] 1 tab PO DAILY 10/27/15 [History Confirmed ] Aspirin EC 81 mg [Ecotrin 81 mg] 162 mg PO DAILY 06/25/18 [History Confirmed 11/08/18] Famotidine [Pepcid] 40 mg PO DAILY 06/25/18 [History Confirmed 11/08/18] Meclizine HCl 25 mg PO TIDPRN PRN 06/25/18 [History Confirmed 11/08/18] Metoclopramide HCl 10 mg [Reglan 10 MG] 10 mg PO BID 06/25/18 [History Confirmed 11/08/18] Metoprolol Succinate 25 mg Xl* [Toprol-Xl 25MG Tablets] 12.5 mg PO BID [History Confirmed 11/08/18] Tolterodine Tartrate [Detrol LA] 4 mg PO DAILY 06/25/18 [History Confirmed 11/08] Nitroglycerin 0.4 mg Tablet [Nitrostat 0.4 MG Tablet] 0.4 mg SL UD #1 bottle 06/26/18 [Rx Confirmed 11/08/18] Atorvastatin Calcium 20 mg PO HS 08/16/18 [History Confirmed 11/08/18] Potassium Chloride 8 meq PO DAILY 08/16/18 [History Confirmed 11/08/18] Isosorbide Mononitrate 30 mg [Imdur 30 MG] 30 mg PO DAILY #30 tab 09/30/18 [Rx Confirmed 11/08/18] Enoxaparin Sodium [Lovenox] 30 mg SQ DAILY 11/08/18 [History Confirmed 11/08/18] Acetaminophen 325 mg [Tylenol 325 mg] 650 mg PO Q4H PRN PRN 11/09/18 [ History Confirmed 11/09/18] Magnesium Hydroxide 30 ml [Milk of Magnesia 30 ml] 30 ml PO DAILY PRN PRN 11/09/18 [History Confirmed 11/09/18] Allergies/Adverse Reactions: Allergies Allergy/AdvReac Type Severity Reaction Status Date / Time Sulfa (Sulfonamide Allergy Intermediate Verified 11/08/18 18:47 Antibiotics) acetaminophen [From [place]] AdvReac Verified 11/08/18 22:02 hydrocodone [From [place]] AdvReac Verified 11/08/18 22:02 - Past Medical History Past Medical History: Yes Neurological History: No Pertinent History, Other ENT History: Cataracts Cardiac History: Coronary Artery Disease Respiratory History: COPD Endocrine Medical History: No Pertinent History Musculoskelatal History: Arthritis GI Medical History: GERD, Ulcer History: No Pertinent History Pyscho-Social History: No Pertinent History Reproductive Disorders: No Pertinent History Comment: Parkinson's disease - Female History Are you now?: No (Post) - Past Surgical History Past Surgical History: Yes Neuro Surgical History: No Pertinent History Cardiac History: CABG Respiratory Surgery: No Pertinent History GI Surgical History: Cholecystectomy Genitourinary Surgical Hx: No Pertinent History Musculskeletal Surgical Hx: No Pertinent History, Orthopedic Surgery Female Surgical History: No Pertinent History Other Surgical History: kyphoplasty, hip surgery 09/2018, rib fractures around 2018 - Social History Smoking Status: Never smoker Exposure to second hand smoke: No Alcohol: None Drug Use: none Significant Family History: no pertinent family hx - Physical Exam Vital Signs: Vital Signs - 24 hr Temp Pulse Resp BP Pulse Ox 11/09/18 07:16 97.5 F 76 16 184/89 91 L 11/09/18 04:24 97.1 F 82 22 190/86 97 11/09/18 03:47 74 17 95 11/09/18 00:15 97.7 F 74 17 179/84 95 11/08/18 21:39 97.9 F 88 20 184/86 90 L 11/08/18 20:47 88 15 180/101 97 11/08/18 18:18 95.5 F 92 H 16 178/112 96 General Appearance: no apparent distress, thin Neurologic Exam: alert, cooperative Respiratory Exam: normal breath sounds, lungs clear, No respiratory distress Cardiovascular Exam: regular rate/rhythm, normal heart sounds, normal peripheral pulses, other (prior sternotomy, well healed scar) Extremity Exam: normal inspection, normal range of motion, pelvis stable Results - Labs Lab/Micro Results: Lab Results-Last 24 Hours 11/08/18 11/08/18 11/08/18 Range/Units 18:34 19:00 19:00 WBC 7.8 (4.0-10.5) K/mm3 RBC 3.43 L (4.1-5.4) M/mm3 Hgb 10.8 L (12.0-16.0) gm/dl Hct 33.4 L (35-47) % MCV 97.4 (78-100) fl MCH 31.4 (26-32) pg MCHC 32.3 (32-36) g/dl RDW 15.5 H (11.5-14.0) % Plt Count 316 (150-450) K/mm3 MPV 9.4 (6-9.5) fl Gran % 73.7 H (36.0-66.0) % Eos # (Auto) 0.16 (0-0.5) Absolute Lymphs (auto) 1.16 (1.0-4.6) Absolute Monos (auto) 0.69 (0.0-1.3) Lymphocytes % 15.0 L (24.0-44.0) % Monocytes % 8.9 (0.0-12.0) % Eosinophils % 2.1 (0.00-5.0) % Basophils % 0.3 (0.0-0.4) % Absolute Granulocytes 5.72 (1.4-6.9) Basophils # 0.02 (0-0.4) PT (9.95-12.35) SECONDS INR (0.8-3.0) APTT (25.3-37.0) SECONDS pO2/FiO2 Ratio % VBG pH (7.32-7.42) VBG pCO2 at Pat Temp (42-55) mm/Hg VBG pO2 at Pat Temp (25-40) mm/Hg VBG HCO3 (22-28) meq/L VBG O2 Sat ([place]) (95-100) VBG Base Excess (-2.0-2.0) VBG Hemoglobin VBG Carboxyhemoglobin (0.0-6.9) % T HGB POC Potassium (3.5-5.1) Sodium 134 L (137-145) mmol/L Potassium 4.4 (3.5-5.1) mmol/L Chloride 101 (98-107) mmol/L Carbon Dioxide 22 (22-30) mmol/L Anion Gap 14.8 (5-15) MEQ/L BUN 17 (7-17) mg/dL Creatinine 0.69 (0.52-1.04) mg/dL Estimated GFR > 60.0 ML/MIN Glucose 147 H (74-106) mg/dL Lactic Acid (0.4-2.0) Calcium 9.1 (8.4-10.2) mg/dL Total Bilirubin 0.50 (0.2-1.3) mg/dL AST 25 (14-36) U/L ALT 14 (0-35) U/L Alkaline Phosphatase 134 H (38-126) U/L Troponin I (0.000-0.034) ng/mL Serum Total Protein 6.9 (6.3-8.2) g/dL Albumin 3.7 (3.5-5.0) g/dL Amylase 112 H (30-110) U/L Lipase 220 (23-300) U/L Urine Color YELLOW (YELLOW) Urine Appearance SLIGHTLY CLOUDY (CLEAR) Urine pH 5.0 (5-6) Ur Specific [place] 1.016 (1.005-1.025) Urine Protein 30 (Negative) Urine Ketones NEGATIVE (NEGATIVE) Urine Blood SMALL (0-5) Shaun/ul Urine Nitrite NEGATIVE (NEGATIVE) Urine Bilirubin NEGATIVE (NEGATIVE) Urine Urobilinogen NEGATIVE (0-1) mg/dL Ur Leukocyte Esterase MODERATE (NEGATIVE) Urine WBC (Auto) 26-50 (0-5) /HPF Urine RBC (Auto) 11-15 (0-2) /HPF U Hyaline Cast (Auto) 3-5 (0-2) /LPF U Epithel Cells (Auto) RARE (FEW) /HPF Urine Bacteria (Auto) NONE (NEGATIVE) /HPF Urine Mucus (Auto) SLIGHT (NEGATIVE) /HPF Urine Culture Reflexed ORDERED SEPARATELY (NO) Urine Glucose NEGATIVE (NEGATIVE) mg/dL Slides for Path Review 11/08/18 11/08/18 11/08/18 Range/Units 19:00 19:00 19:22 WBC (4.0-10.5) K/mm3 RBC (4.1-5.4) M/mm3 Hgb (12.0-16.0) gm/dl Hct (35-47) % MCV (78-100) fl MCH (26-32) pg MCHC (32-36) g/dl RDW (11.5-14.0) % Plt Count (150-450) K/mm3 MPV (6-9.5) fl Gran % (36.0-66.0) % Eos # (Auto) (0-0.5) Absolute Lymphs (auto) (1.0-4.6) Absolute Monos (auto) (0.0-1.3) Lymphocytes % (24.0-44.0) % Monocytes % (0.0-12.0) % Eosinophils % (0.00-5.0) % Basophils % (0.0-0.4) % Absolute Granulocytes (1.4-6.9) Basophils # (0-0.4) PT 10.7 (9.95-12.35) SECONDS INR 0.92 (0.8-3.0) APTT 28.2 (25.3-37.0) SECONDS pO2/FiO2 Ratio % VBG pH (7.32-7.42) VBG pCO2 at Pat Temp (42-55) mm/Hg VBG pO2 at Pat Temp (25-40) mm/Hg VBG HCO3 (22-28) meq/L VBG O2 Sat ([place]) (95-100) VBG Base Excess (-2.0-2.0) VBG Hemoglobin VBG Carboxyhemoglobin (0.0-6.9) % T HGB POC Potassium (3.5-5.1) Sodium (137-145) mmol/L Potassium (3.5-5.1) mmol/L Chloride (98-107) mmol/L Carbon Dioxide (22-30) mmol/L Anion Gap (5-15) MEQ/L BUN (7-17) mg/dL Creatinine (0.52-1.04) mg/dL Estimated GFR ML/MIN Glucose (74-106) mg/dL Lactic Acid 1.7 (0.4-2.0) Calcium (8.4-10.2) mg/dL Total Bilirubin (0.2-1.3) mg/dL AST (14-36) U/L ALT (0-35) U/L Alkaline Phosphatase (38-126) U/L Troponin I 0.052 H* (0.000-0.034) ng/mL Serum Total Protein (6.3-8.2) g/dL Albumin (3.5-5.0) g/dL Amylase (30-110) U/L Lipase (23-300) U/L Urine Color (YELLOW) Urine Appearance (CLEAR) Urine pH (5-6) Ur Specific [place] (1.005-1.025) Urine Protein (Negative) Urine Ketones (NEGATIVE) Urine Blood (0-5) Shaun/ul Urine Nitrite (NEGATIVE) Urine Bilirubin (NEGATIVE) Urine Urobilinogen (0-1) mg/dL Ur Leukocyte Esterase (NEGATIVE) Urine WBC (Auto) (0-5) /HPF Urine RBC (Auto) (0-2) /HPF U Hyaline Cast (Auto) (0-2) /LPF U Epithel Cells (Auto) (FEW) /HPF Urine Bacteria (Auto) (NEGATIVE) /HPF Urine Mucus (Auto) (NEGATIVE) /HPF Urine Culture Reflexed (NO) Urine Glucose (NEGATIVE) mg/dL Slides for Path Review 11/08/18 11/09/18 Range/Units 19:22 05:15 WBC 7.5 (4.0-10.5) K/mm3 RBC 3.54 L (4.1-5.4) M/mm3 Hgb 10.9 L (12.0-16.0) gm/dl Hct 34.7 L (35-47) % MCV 98.0 (78-100) fl MCH 30.7 (26-32) pg MCHC 31.4 L (32-36) g/dl RDW 15.5 H (11.5-14.0) % Plt Count 305 (150-450) K/mm3 MPV 10.0 H (6-9.5) fl Gran % 68.6 H (36.0-66.0) % Eos # (Auto) 0.15 (0-0.5) Absolute Lymphs (auto) 1.43 (1.0-4.6) Absolute Monos (auto) 0.76 (0.0-1.3) Lymphocytes % 19.0 L (24.0-44.0) % Monocytes % 10.1 (0.0-12.0) % Eosinophils % 2.0 (0.00-5.0) % Basophils % 0.3 (0.0-0.4) % Absolute Granulocytes 5.18 (1.4-6.9) Basophils # 0.02 (0-0.4) PT (9.95-12.35) SECONDS INR (0.8-3.0) APTT (25.3-37.0) SECONDS pO2/FiO2 Ratio 21.0 % VBG pH 7.33 (7.32-7.42) VBG pCO2 at Pat Temp 43 (42-55) mm/Hg VBG pO2 at Pat Temp 33 (25-40) mm/Hg VBG HCO3 22.7 (22-28) meq/L VBG O2 Sat ([place]) 63.3 L (95-100) VBG Base Excess -3.2 L (-2.0-2.0) VBG Hemoglobin 11.1 VBG Carboxyhemoglobin 2.9 (0.0-6.9) % T HGB POC Potassium 4.3 (3.5-5.1) Sodium (137-145) mmol/L Potassium (3.5-5.1) mmol/L Chloride (98-107) mmol/L Carbon Dioxide (22-30) mmol/L Anion Gap (5-15) MEQ/L BUN (7-17) mg/dL Creatinine (0.52-1.04) mg/dL Estimated GFR ML/MIN Glucose (74-106) mg/dL Lactic Acid (0.4-2.0) Calcium (8.4-10.2) mg/dL Total Bilirubin (0.2-1.3) mg/dL AST (14-36) U/L ALT (0-35) U/L Alkaline Phosphatase (38-126) U/L Troponin I (0.000-0.034) ng/mL Serum Total Protein (6.3-8.2) g/dL Albumin (3.5-5.0) g/dL Amylase (30-110) U/L Lipase (23-300) U/L Urine Color (YELLOW) Urine Appearance (CLEAR) Urine pH (5-6) Ur Specific [place] (1.005-1.025) Urine Protein (Negative) Urine Ketones (NEGATIVE) Urine Blood (0-5) Shaun/ul Urine Nitrite (NEGATIVE) Urine Bilirubin (NEGATIVE) Urine Urobilinogen (0-1) mg/dL Ur Leukocyte Esterase (NEGATIVE) Urine WBC (Auto) (0-5) /HPF Urine RBC (Auto) (0-2) /HPF U Hyaline Cast (Auto) (0-2) /LPF U Epithel Cells (Auto) (FEW) /HPF Urine Bacteria (Auto) (NEGATIVE) /HPF Urine Mucus (Auto) (NEGATIVE) /HPF Urine Culture Reflexed (NO) Urine Glucose (NEGATIVE) mg/dL Slides for Path Review YES - Radiology Impressions Radiology Exams & Impressions: Radiology Procedures Category Date Time Status CHEST 1 VIEW (PORTABLE) Stat Exams 11/08/18 18:19 Taken HEAD WITHOUT CONTRAST [CT] Stat Exams 11/08/18 18:21 Taken Assessment/Plan (1) UTI (urinary tract infection) Current Visit: Yes Status: Acute Assessment & Plan: treat with rocephin emperically, blood and urine culture pending. formal read from radiology pending on chest xray, I don't see an obvious infiltrate at this time. Code(s): N39.0 - URINARY TRACT INFECTION, SITE NOT SPECIFIED (2) Weakness Current Visit: Yes Status: Acute Assessment & Plan: regular diet, consult PT Code(s): R53.1 - WEAKNESS
--- NOTE | 2018-11-09 08:37 | XRAY ---
Indication: Weakness. Comparison: September 27, 2018. Portable chest unchanged again demonstrating COPD and mild left base infiltrate/atelectasis/effusion. Remaining lungs clear. Heart is not enlarged again with hiatal hernia. No new cardiopulmonary abnormalities.
--- NOTE | 2018-11-09 08:37 | XRAY ---
Indication: Mental status change. Weakness. Multiple contiguous axial images obtained through the head without contrast. Comparison: September 27, 2018. Stable age-appropriate global atrophy and mild periventricular degenerative micro-ischemia. No acute intracranial hemorrhage, abnormal extra-axial fluid collection, or mass effect. Fourth ventricle is midline without hydrocephalus. Bony calvarium intact again with partial opacification of the mastoid air cells. Visualized paranasal sinuses are clear. Impression: Stable nonacute senile brain with partial opacification of the mastoid air cells. No new/acute intracranial abnormalities. CT DI 59.80
[2018-11-09] MEDS ORDERED: Nitrostat 0.4 MG Tablet SL PRN (09:00)
[2018-11-09] MEDS ORDERED: MILK OF MAGNESIA 30 ML PO PRN (09:00)
[2018-11-09 09:04] LABS: ANION GAP 14.9 MEQ/L (5-15); BLOOD UREA NITROGEN 12 mg/dL (7-17); CHLORIDE 106 mmol/L (98-107); Calcium 9.3 mg/dL (8.4-10.2); Carbon Dioxide 21 mmol/L (22-30); Glucose 106 mg/dL (74-106); SODIUM 138 mmol/L (137-145)
[2018-11-09] MEDS: Zestril 5 MG PO SCH (09:18)
[2018-11-09] MEDS ORDERED: NON-FORMULARY ITEM (Esomeprazole Magnesium [Nexium] 40 MG) PO SCH (10:00)
[2018-11-09] MEDS ORDERED: MULTIVITAMIN PO SCH (10:00)
[2018-11-09] MEDS ORDERED: NON-FORMULARY ITEM (Potassium Chloride [Potassium Chloride] 8 MEQ) PO SCH (10:00)
[2018-11-09] MEDS: Toprol-Xl 25MG Tablets PO SCH ×2 (10:46→21:34)
[2018-11-09] MEDS: Pepcid 20 MG PO SCH (10:47)
[2018-11-09] MEDS: Reglan 10 MG PO SCH ×2 (10:47→21:36)
[2018-11-09] MEDS: THERAGRAN MULTIVITAMIN PO SCH (10:47)
[2018-11-09] MEDS: ECOTRIN 81 MG PO SCH (10:47)
[2018-11-09] MEDS: Imdur 30 MG PO SCH (10:48)
[2018-11-09] MEDS: SYNTHROID 50 MCG PO SCH (10:48)
[2018-11-09] MEDS: Klor Con 10 MEQ PO SCH (10:48)
[2018-11-09] MEDS: ENOXAPARIN SODIUM SQ SCH (10:48)
[2018-11-09] MEDS: Ditropan XL 5 MG PO SCH (10:48)
[2018-11-09] MEDS: Zithromax 500 MG/ 250 ML NaCl Premix 500 MG/250 ML IVPB IV SCH (10:49)
[2018-11-09] MEDS: Protonix 40MG Tablet PO SCH (10:52)
[2018-11-09] MEDS: Sodium Chloride 0.9% 1000 ML 1,000 ML IV SCH (16:05)
[2018-11-09] MEDS: ZOCOR 20MG PO SCH (21:34)
[2018-11-09] MEDS: ROCEPHIN 1 Gm-D5w 50 ml Bag** 1 G/50 ML IVPB IV SCH (21:34)
[2018-11-09] MEDS ORDERED: NON-FORMULARY ITEM (Atorvastatin Calcium [Atorvastatin Calcium] 20 MG) PO SCH (22:00)
[2018-11-10 05:45] LABS: BASOPHIL % 0.9 % (0.0-0.4); Basophil (Absolute #) 0.05 (0-0.4); Eosinophil % 6.4 % (0.00-5.0); Eosinophil (Absolute #) 0.34 (0-0.5); Granulocyte Absolute (ANC) 2.71 (1.4-6.9); Granulocytes % 51.1 % (36.0-66.0); Hematocrit 32.5 % (35-47); Hemoglobin 10.5 gm/dl (12.0-16.0); Lymphocyte (Absolute #) 1.61 (1.0-4.6); Lymphocytes % 30.3 % (24.0-44.0); Mean Cell Volume 97.6 fl (78-100); Mean Corpuscular Hemoglobin 31.5 pg (26-32); Mean Corpuscular Hgb Concent. 32.3 g/dl (32-36); Mean Platelet Volume 9.7 fl (6-9.5); Monocytes % 11.3 % (0.0-12.0); Platelet Count 270 K/mm3 (150-450); Red Blood Count 3.33 M/mm3 (4.1-5.4); Red Cell Distribution Width 15.5 % (11.5-14.0); White Blood Count 5.3 K/mm3 (4.0-10.5)
[2018-11-10 06:15] LABS: ANION GAP 13.8 MEQ/L (5-15); BLOOD UREA NITROGEN 11 mg/dL (7-17); CHLORIDE 108 mmol/L (98-107); Carbon Dioxide 19 mmol/L (22-30); Glucose 84 mg/dL (74-106); Potassium 3.8 mmol/L (3.5-5.1); SODIUM 138 mmol/L (137-145)
--- NOTE | 2018-11-10 08:29 | PCM.NOTE ---
Date and Time: 11/10/18827 Subjective Assessment: family notes some improvement, speech saw patient and apparently did ok eating yesterday. she has no specific complaints, family notes some periods of difficulty speaking Objective Exam General Appearance: no apparent distress Neurologic Exam: alert Skin Exam: normal color, warm, dry Cardiovascular Exam: regular rate/rhythm, normal heart sounds Gastrointestinal/Abdomen Exam: soft, No tenderness, No mass Extremity Exam: normal inspection, normal range of motion OBJECTIVE DATA Vital Signs: Vital Signs - 24 hr Temp Pulse Resp BP BP Pulse Ox 11/10/18 07:51 98.6 F 66 18 188/77 97 11/10/18 04:15 98.2 F 73 16 155/75 96 11/10/18 00:20 97.8 F 71 21 131/71 96 11/09/18 20:00 98.0 F 67 17 141/67 97 11/09/18 16:00 97.4 F 73 16 142/60 97 11/09/18 11:36 97.5 F 78 17 143/93 97 Pain Assessment - Last Documented Pain Intensity 0 Pain Scale Used [facility] Intake and Output: Intake & Output 11/07/18 11/08/18 11/09/18 11/10/18 11:59 11:59 11:59 11:59 Intake Total 120 1727 Output Total 2050 1125 Balance -1930 602 Weight 44.1 kg 45.1 kg Lab Results: Lab Results-Last 24 Hours 11/09/18 11/10/18 11/10/18 Range/Units 05:15 05:30 05:30 WBC 5.3 (4.0-10.5) K/mm3 RBC 3.33 L (4.1-5.4) M/mm3 Hgb 10.5 L (12.0-16.0) gm/dl Hct 32.5 L (35-47) % MCV 97.6 (78-100) fl MCH 31.5 (26-32) pg MCHC 32.3 (32-36) g/dl RDW 15.5 H (11.5-14.0) % Plt Count 270 (150-450) K/mm3 MPV 9.7 H (6-9.5) fl Gran % 51.1 (36.0-66.0) % Eos # (Auto) 0.34 (0-0.5) Absolute Lymphs (auto) 1.61 (1.0-4.6) Absolute Monos (auto) 0.60 (0.0-1.3) Lymphocytes % 30.3 (24.0-44.0) % Monocytes % 11.3 (0.0-12.0) % Eosinophils % 6.4 H (0.00-5.0) % Basophils % 0.9 (0.0-0.4) % Absolute Granulocytes 2.71 (1.4-6.9) Basophils # 0.05 (0-0.4) Sodium 138 138 (137-145) mmol/L Potassium 4.0 3.8 (3.5-5.1) mmol/L Chloride 106 108 H (98-107) mmol/L Carbon Dioxide 21 L 19 L (22-30) mmol/L Anion Gap 14.9 13.8 (5-15) MEQ/L BUN 12 11 (7-17) mg/dL Creatinine 0.60 0.50 L (0.52-1.04) mg/dL Estimated GFR > 60.0 > 60.0 ML/MIN Glucose 106 84 (74-106) mg/dL Calcium 9.3 9.0 (8.4-10.2) mg/dL Radiology Exams: Radiology Procedures Category Date Time Status CHEST 1 VIEW (PORTABLE) Stat Exams 11/08/18 18:19 Completed HEAD WITHOUT CONTRAST [CT] Stat Exams 11/08/18 18:21 Completed Multi-Disciplinary Progress Notes: Multi-Disciplinary Progress Notes 11/09/18 11:41 Physical Therapy Note by Consuelo Hartley TALKED WITH PATIENT WAS POSSIBLE - VERY LETHARGIC, AND WITH PATIENT'S FAMILY AT LENGTH ABOUT PATIENT'S LOF SINCE HIP FX 6 WKS AGO. ALSO CALLED [facility] TO ESTABLISH HOW MUCH PATIENT WAS DOING IN HER REHAB PROGRAM THERE. THEY STATED SHE HAS BEEN NWB ON THE LLE REQUIRING MOD/MAX ASSIST +2 TO TRANSFER. PROGRESSION POST FX HAS BEEN DIFFICULT. PATIENT'S GENERALIZED WEAKNESS HINDERS THERAPY INTERVENTIONS WELL. FAMILY STATES THEY BELIEVE ERAN AMEZQUITA INDICATED PROGRESSION TO PWB AT ABOUT THIS TIME AT THEIR LAST APPOINTMENT WITH HIM. TODAY PATIENT HAS BEEN UP IN CHAIR APPROX 2 HRS AND ON/OFF COMMODE WITH MOD ASSIST +2 AND A THIRD CARBIDE GRINDER TO MOVE FURNITURE. TALKED WITH STAFF ABOUT PATIENT BEING UP IN CHAIR AGAIN TODAY IF TOLERATED. SWALLOW EVAL IS ALSO ORDERED. PUT WALKER IN ROOM TO HELP WITH TRANSFERS IF POSSIBLE. WILL MONITOR AND PROCEED WITH P.T. INTERVENTIONS WHEN AND IF ACTIVITY TOLERANCE IMPROVES. Initialized on 11/09/18 11:41 - END OF NOTE Assessment/Plan (1) UTI (urinary tract infection) Current Visit: Yes Status: Acute Assessment & Plan: on rocephin, awaiting culture results Code(s): N39.0 - URINARY TRACT INFECTION, SITE NOT SPECIFIED (2) Weakness Current Visit: Yes Status: Acute Code(s): R53.1 - WEAKNESS (3) Hypertension Current Visit: No Status: Chronic Qualifiers: Hypertension type: essential hypertension Qualified Code(s): I10 - Essential (primary) hypertension Assessment & Plan: improved with addition of low dose lisinopril, continue current management. Code(s): I10 - ESSENTIAL (PRIMARY) HYPERTENSION
[2018-11-10] MEDS: Toprol-Xl 25MG Tablets PO SCH ×2 (09:28→21:39)
[2018-11-10] MEDS: Ditropan XL 5 MG PO SCH (09:29)
[2018-11-10] MEDS: Zestril 5 MG PO SCH (09:29)
[2018-11-10] MEDS: ECOTRIN 81 MG PO SCH (09:29)
[2018-11-10] MEDS: Imdur 30 MG PO SCH (09:31)
[2018-11-10] MEDS: SYNTHROID 50 MCG PO SCH (09:31)
[2018-11-10] MEDS: THERAGRAN MULTIVITAMIN PO SCH (09:31)
[2018-11-10] MEDS: Protonix 40MG Tablet PO SCH (09:31)
[2018-11-10] MEDS: Pepcid 20 MG PO SCH (09:31)
[2018-11-10] MEDS: Reglan 10 MG PO SCH ×2 (09:31→21:38)
[2018-11-10] MEDS: Klor Con 10 MEQ PO SCH (09:31)
--- NOTE | 2018-11-10 10:36 | XRAY ---
Indication: Dysphasia and lethargic. High blood pressure. Multiple contiguous axial images obtained through the head without contrast. Comparison: November 08, 2018. Images through base of brain slightly degraded by motion artifact. Grossly stable global atrophy and minimal periventricular degenerative micro-ischemia bilaterally. Again no acute intracranial hemorrhage, abnormal extra-axial fluid collection, or mass effect. Fourth ventricle is midline without hydrocephalus. Bony calvarium intact. Impression: Minimal motion artifact. Grossly stable nonacute senile brain. CT DI 61.38
[2018-11-10] MEDS: Zithromax 500 MG/ 250 ML NaCl Premix 500 MG/250 ML IVPB IV SCH (10:44)
[2018-11-10] MEDS: ENOXAPARIN SODIUM SQ SCH (10:50)
[2018-11-10] MEDS: Sodium Chloride 0.9% 1000 ML 1,000 ML IV SCH (18:35)
[2018-11-10] MEDS: ZOCOR 20MG PO SCH (21:38)
[2018-11-10] MEDS: ROCEPHIN 1 Gm-D5w 50 ml Bag** 1 G/50 ML IVPB IV SCH (21:39)
[2018-11-11 05:54] LABS: BASOPHIL % 0.3 % (0.0-0.4); Basophil (Absolute #) 0.03 (0-0.4); Eosinophil % 0.3 % (0.00-5.0); Eosinophil (Absolute #) 0.03 (0-0.5); Granulocyte Absolute (ANC) 9.57 (1.4-6.9); Granulocytes % 85.8 % (36.0-66.0); Hemoglobin 11.7 gm/dl (12.0-16.0); Lymphocyte (Absolute #) 0.82 (1.0-4.6); Lymphocytes % 7.4 % (24.0-44.0); Mean Cell Volume 97.4 fl (78-100); Mean Corpuscular Hgb Concent. 31.6 g/dl (32-36); Mean Platelet Volume 9.7 fl (6-9.5); Monocyte (Absolute #) 0.69 (0.0-1.3); Monocytes % 6.2 % (0.0-12.0); Platelet Count 341 K/mm3 (150-450); Red Cell Distribution Width 15.7 % (11.5-14.0); White Blood Count 11.1 K/mm3 (4.0-10.5)
[2018-11-11 05:59] LABS: Mean Corpuscular Hemoglobin 30.7 pg (26-32)
[2018-11-11 06:09] LABS: ANION GAP 17.6 MEQ/L (5-15); BLOOD UREA NITROGEN 12 mg/dL (7-17); CHLORIDE 107 mmol/L (98-107); Calcium 9.4 mg/dL (8.4-10.2); Carbon Dioxide 19 mmol/L (22-30); Creatinine 1 0.59 mg/dL (0.52-1.04); Glucose 150 mg/dL (74-106); Potassium 3.7 mmol/L (3.5-5.1); SODIUM 139 mmol/L (137-145)
[2018-11-11] MEDS: Reglan 10 MG PO SCH ×2 (09:44→20:11)
[2018-11-11] MEDS: SYNTHROID 50 MCG PO SCH (09:44)
[2018-11-11] MEDS: Imdur 30 MG PO SCH (09:44)
[2018-11-11] MEDS: Toprol-Xl 25MG Tablets PO SCH ×2 (09:44→20:12)
[2018-11-11] MEDS: Protonix 40MG Tablet PO SCH (09:44)
[2018-11-11] MEDS: Ditropan XL 5 MG PO SCH (09:44)
[2018-11-11] MEDS: Zestril 5 MG PO SCH (09:44)
[2018-11-11] MEDS: Klor Con 10 MEQ PO SCH (09:44)
[2018-11-11] MEDS: THERAGRAN MULTIVITAMIN PO SCH (09:44)
[2018-11-11] MEDS: ECOTRIN 81 MG PO SCH (09:44)
[2018-11-11] MEDS: ENOXAPARIN SODIUM SQ SCH (09:46)
[2018-11-11] MEDS: Pepcid 20 MG PO SCH (09:46)
[2018-11-11] MEDS: Zithromax 500 MG/ 250 ML NaCl Premix 500 MG/250 ML IVPB IV SCH (09:47)
--- NOTE | 2018-11-11 14:25 | PCM.NOTE ---
Date and Time: 11/11/181418 Subjective Assessment: Pt is talking well today but is completely disoriented, talking to people who aren't there and asking family to accomplish nonsensical tasks ("Go behind that half wall and give Elina her wallet.") She tells me she is in a big [place] with all these people, and the year is 1961. She has been eating well. She denies any pain and hasn't complained to her family of any. Family notes at times she seems very SOB. We discussed her course over the past 2 mo or so. They note that she did not get much sleep the past week; initially she was put in with a roommate who had pneumonia and kept pt up coughing all night. - Review of Systems Constitutional: No Fever Respiratory: Cough, Short Of Breath All Other Systems: Unable due to condition Objective Exam General Appearance: no apparent distress, alert Neurologic Exam: cooperative, disoriented Skin Exam: normal color, warm, dry, No rash Respiratory Exam: normal breath sounds, other (intermittent tachypnea/dyspnea), No crackles/rales, No rhonchi, No wheezing Cardiovascular Exam: regular rate/rhythm, normal heart sounds, No murmur Gastrointestinal/Abdomen Exam: soft, normal bowel sounds, No tenderness, No distention, No mass, No guarding, No rebound Extremity Exam: normal inspection, No pedal edema, No swelling OBJECTIVE DATA Vital Signs: Vital Signs - 24 hr Temp Pulse Resp BP Pulse Ox 11/11/18 12:53 98.5 F 86 20 141/81 90 L 11/11/18 07:59 98.6 F 100 H 20 197/88 90 L 11/11/18 04:25 98.1 F 93 H 17 192/85 93 L 11/11/18 01:00 97.9 F 66 18 184/74 95 11/10/18 21:00 98.4 F 63 18 140/65 95 11/10/18 17:00 98.7 F 65 18 161/74 95 Pain Assessment - Last Documented Pain Intensity 0 Pain Scale Used 0-10 Pain Scale Intake and Output: Intake & Output 11/09/18 11/10/18 11/11/18 11/12/18 11:59 11:59 11:59 11:59 Intake Total 120 1737 2147 500 Output Total 0 1125 350 Balance -6552 415 0289 500 Weight 44.1 kg 45.1 kg 44.4 kg Lab Results: Lab Results-Last 24 Hours 11/11/18 11/11/18 Range/Units 05:47 05:47 WBC 11.1 H (4.0-10.5) K/mm3 RBC 3.80 L (4.1-5.4) M/mm3 Hgb 11.7 L (12.0-16.0) gm/dl Hct 37.0 (35-47) % MCV 97.4 (78-100) fl MCH 30.7 (26-32) pg MCHC 31.6 L (32-36) g/dl RDW 15.7 H (11.5-14.0) % Plt Count 341 (150-450) K/mm3 MPV 9.7 H (6-9.5) fl Gran % 85.8 H (36.0-66.0) % Eos # (Auto) 0.03 (0-0.5) Absolute Lymphs (auto) 0.82 L (1.0-4.6) Absolute Monos (auto) 0.69 (0.0-1.3) Lymphocytes % 7.4 L (24.0-44.0) % Monocytes % 6.2 (0.0-12.0) % Eosinophils % 0.3 (0.00-5.0) % Basophils % 0.3 (0.0-0.4) % Absolute Granulocytes 9.57 H (1.4-6.9) Basophils # 0.03 (0-0.4) Sodium 139 (137-145) mmol/L Potassium 3.7 (3.5-5.1) mmol/L Chloride 107 (98-107) mmol/L Carbon Dioxide 19 L (22-30) mmol/L Anion Gap 17.6 H (5-15) MEQ/L BUN 12 (7-17) mg/dL Creatinine 0.59 (0.52-1.04) mg/dL Estimated GFR > 60.0 ML/MIN Glucose 150 H (74-106) mg/dL Calcium 9.4 (8.4-10.2) mg/dL Radiology Exams: Radiology Procedures Category Date Time Status CHEST 1 VIEW (PORTABLE) Urgent Exams 11/11/18 14:13 Ordered HEAD WITHOUT CONTRAST [CT] Stat Exams 11/10/18 09:21 Completed Assessment/Plan (1) Pneumonia Current Visit: Yes Status: Acute Qualifiers: Pneumonia type: due to unspecified organism Laterality: left Lung location: lower lobe of lung Qualified Code(s): J18.1 - Lobar pneumonia, unspecified organism Assessment & Plan: changed antibiotics to IV zosyn. Code(s): J18.9 - PNEUMONIA, UNSPECIFIED ORGANISM (2) delerium Current Visit: Yes Status: Acute Assessment & Plan: At baseline pt is very sharp, reminds other family members of their appointments. Has certainly declined in the past 2 mo but is much worse this past 1 week. (3) Dyspnea Current Visit: No Status: Acute Qualifiers: Dyspnea type: shortness of breath Qualified Code(s): R06.02 - Shortness of breath; R06.00 - Dyspnea, unspecified; R06.01 - Orthopnea Assessment & Plan: will check d-dimer and ABG - if necessary can to CTA chest as renal function is great. Code(s): R06.00 - DYSPNEA, UNSPECIFIED (4) Hypertension Current Visit: No Status: Chronic Qualifiers: Hypertension type: essential hypertension Qualified Code(s): I10 - Essential (primary) hypertension Code(s): I10 - ESSENTIAL (PRIMARY) HYPERTENSION
[2018-11-11 14:54] LABS: A-aADO2 56; ABG HEMOGLOBIN 9.7; ABG POTASSIUM 3.4 (3.5-5.1); ABG SITE RIGHT BRACHIAL; ARTERIAL BLD GAS O2 SATURATION 93.5 % (95-100); ARTERIAL BLOOD GAS FIO2 21 %; ARTERIAL BLOOD GAS PCO2 27 mmHg (35-45); ARTERIAL BLOOD GAS PO2 60 mmHg (75-100); ARTERIAL BLOOD GAS pH 7.49 (7.35-7.45); CARBOXYHEMOGLOBIN 1.3 % THgb (0.0-6.9); HCO3- 20.6 (22-28); HGB O2 SAT 91.3 g/dF (94-100); Methhemoglobin 1.1 % (1.4-1.5); paO2 pAO1 0.52
[2018-11-11] MEDS: Zosyn 3.375GM/100 Ml D5W 3.375 GM/100 ML IVPB IV SCH ×2 (16:45→22:29)
[2018-11-11] MEDS: ZOCOR 20MG PO SCH (20:11)
--- NOTE | 2018-11-11 21:28 | XRAY ---
Indication: Short of breath. Elevated d-dimer. Multiple contiguous axial images obtained through the chest using 80 cc Isovue-370 contrast and PE protocol. Comparison: None There is good opacification of the pulmonary arteries to include the lobar and segmental branches. Mild respiration artifact limits the study. No filling defect or pulmonary embolus. Heart is borderline enlarged with previous CABG surgery. Aorta moderately arteriosclerotic without aneurysm/dissection. No pathologic mediastinal/hilar lymphadenopathy. Large hiatal hernia with partial intrathoracic stomach. Examination of the lung parenchyma demonstrates pulmonary edema with moderate bilateral pleural effusions and compressive atelectasis. Bony thorax demonstrates osteopenia, moderate/advanced multilevel degenerative spondylosis, multilevel thoracolumbar remote compression deformities with multilevel kyphoplasty, and sternotomy wires. Limited upper abdomen is unremarkable. Impression: 1. Pulmonary embolus evaluation limited by respiration artifact. No large pulmonary embolus. 2. Borderline cardiomegaly with moderate bilateral pleural effusions and pulmonary edema. Rule out cardiac decompensation versus fluid overload. Superimposed pneumonia not completely excluded. 3. Large hiatal hernia with partial intrathoracic stomach. 4. Chronic bony findings. Comment: Preliminary interpretation was made by [facility]. No cortical discrepancy. CTDI 16.67
--- NOTE | 2018-11-11 21:30 | XRAY ---
Indication: Pneumonia. Comparison: November 08, 2018. Portable chest now demonstrates pulmonary edema with bibasilar pleural effusions and borderline cardiomegaly concerning for cardiac decompensation versus fluid overload. Superimposed pneumonia not completely excluded. Comment: Preliminary interpretation was made by [facility]. No critical discrepancy.
[2018-11-12] MEDS: Zosyn 3.375GM/100 Ml D5W 3.375 GM/100 ML IVPB IV SCH ×3 (06:10→22:01)
[2018-11-12] MEDS ORDERED: Lasix 20 MG/2 ML IV ONE (09:42)
[2018-11-12] MEDS: Toprol-Xl 25MG Tablets PO SCH ×2 (09:47→22:01)
[2018-11-12] MEDS: Reglan 10 MG PO SCH ×2 (09:47→22:01)
[2018-11-12] MEDS: Zestril 5 MG PO SCH (09:47)
[2018-11-12] MEDS: Sodium Chloride 0.9% 1000 ML 1,000 ML IV SCH (09:48)
[2018-11-12] MEDS: Pepcid 20 MG PO SCH (09:48)
[2018-11-12] MEDS: Klor Con 10 MEQ PO SCH (09:48)
[2018-11-12] MEDS: SYNTHROID 50 MCG PO SCH (09:48)
[2018-11-12] MEDS: ENOXAPARIN SODIUM SQ SCH (09:48)
[2018-11-12] MEDS: Protonix 40MG Tablet PO SCH (09:48)
[2018-11-12] MEDS: ECOTRIN 81 MG PO SCH (09:48)
[2018-11-12] MEDS: Imdur 30 MG PO SCH (10:05)
[2018-11-12 10:30] LABS: BASOPHIL % 0.5 % (0.0-0.4); Basophil (Absolute #) 0.03 (0-0.4); Eosinophil % 4.2 % (0.00-5.0); Eosinophil (Absolute #) 0.26 (0-0.5); Granulocyte Absolute (ANC) 4.29 (1.4-6.9); Granulocytes % 68.9 % (36.0-66.0); Hematocrit 31.8 % (35-47); Hemoglobin 9.9 gm/dl (12.0-16.0); Lymphocyte (Absolute #) 0.94 (1.0-4.6); Lymphocytes % 15.1 % (24.0-44.0); Mean Cell Volume 99.1 fl (78-100); Mean Corpuscular Hemoglobin 30.8 pg (26-32); Mean Corpuscular Hgb Concent. 31.1 g/dl (32-36); Mean Platelet Volume 9.9 fl (6-9.5); Monocytes % 11.3 % (0.0-12.0); Platelet Count 233 K/mm3 (150-450); Red Blood Count 3.21 M/mm3 (4.1-5.4); Red Cell Distribution Width 15.8 % (11.5-14.0); White Blood Count 6.2 K/mm3 (4.0-10.5)
[2018-11-12 10:46] LABS: ALBUMIN 3.2 g/dL (3.5-5.0); ALKALINE PHOSPHATASE 109 U/L (38-126); ANION GAP 14.7 MEQ/L (5-15); BLOOD UREA NITROGEN 11 mg/dL (7-17); CHLORIDE 110 mmol/L (98-107); Calcium 8.9 mg/dL (8.4-10.2); Carbon Dioxide 21 mmol/L (22-30); Creatinine 1 0.65 mg/dL (0.52-1.04); Glucose 177 mg/dL (74-106); NT PRO BNP 31200 pg/mL (0-1800); Potassium 3.5 mmol/L (3.5-5.1); SGOT/AST 41 U/L (14-36); SGPT/ALT 26 U/L (0-35); SODIUM 142 mmol/L (137-145); Total Protein 6.3 g/dL (6.3-8.2)
[2018-11-12] MEDS ORDERED: Lasix 40 MG/4 ML IV ONE (13:00)
--- NOTE | 2018-11-12 14:16 | PCM.NOTE ---
Date and Time: 11/12/18 1406 Subjective Assessment: Pt has been sleeping more today. Does seem more oriented than yesterday. Says the year is 2002 and she is in [place], but won't stay awake long enough to tell me where in [place]. Denies any pain. - Review of Systems Constitutional: No Fever Neurological: Lethargy Objective Exam General Appearance: no apparent distress, other (wakes to touch; somnolent) Neurologic Exam: disoriented (2002, place just "[place]") Skin Exam: normal color, warm, dry, No rash Ears, Nose, Throat Exam: moist mucous membranes Respiratory Exam: lungs clear, diminished breath sounds, No crackles/rales, No rhonchi, No wheezing Cardiovascular Exam: regular rate/rhythm, normal heart sounds, No murmur Gastrointestinal/Abdomen Exam: soft, normal bowel sounds, No tenderness, No distention, No mass, No guarding, No rebound Extremity Exam: normal inspection, No pedal edema, No swelling Back Exam: normal inspection, No rash OBJECTIVE DATA Vital Signs: Vital Signs - 24 hr Temp Pulse Resp BP Pulse Ox 11/12/18 11:00 97.9 F 66 18 142/68 89 L 11/12/18 07:00 97.8 F 67 20 188/86 96 11/12/18 03:31 98.1 F 75 21 173/81 95 11/11/18 23:44 18 11/11/18 21:00 179/81 11/11/18 20:29 98.4 F 78 17 189/80 92 L 11/11/18 16:31 98.2 F 88 18 156/70 93 L Oxygen-Last 24 hours O2 Percentage 2 Liters = 28% O2 Percentage 2 Liters = 28% O2 Percentage 2 Liters = 28% Pain Assessment - Last Documented Pain Intensity 0 Pain Scale [facility] Intake and Output: Intake & Output 11/10/18 11/11/18 11/12/18 11/13/18 11:59 11:59 11:59 11:59 Intake Total 1737 2147 1660 Output Total 1125 350 150 600 Balance 612 1797 1510 -600 Weight 45.1 kg 44.4 kg 46.1 kg Lab Results: Lab Results-Last 24 Hours 06/01/19 06/01/19 06/02/19 Range/Units 05:00 14:08 10:22 WBC 6.2 (4.0-10.5) K/mm3 RBC 3.21 L (4.1-5.4) M/mm3 Hgb 9.9 L (12.0-16.0) gm/dl Hct 31.8 L (35-47) % MCV 99.1 (78-100) fl MCH 30.8 (26-32) pg MCHC 31.1 L (32-36) g/dl RDW 15.8 H (11.5-14.0) % Plt Count 233 (150-450) K/mm3 MPV 9.9 H (6-9.5) fl Gran % 68.9 H (36.0-66.0) % Eos # (Auto) 0.26 (0-0.5) Absolute Lymphs (auto) 0.94 L (1.0-4.6) Absolute Monos (auto) 0.70 (0.0-1.3) Lymphocytes % 15.1 L (24.0-44.0) % Monocytes % 11.3 (0.0-12.0) % Eosinophils % 4.2 (0.00-5.0) % Basophils % 0.5 (0.0-0.4) % Absolute Granulocytes 4.29 (1.4-6.9) Basophils # 0.03 (0-0.4) D-Dimer 5339 H* (215-500) ng/mL Puncture Site RIGHT BRACHIAL pCO2 27 L (35-45) mmHg pO2 60 L (75-100) mmHg Base Excess -2.0 (-2.0-2.0) O2 Saturation 91.3 L (94-100) g/dF ABG pH 7.49 H (7.35-7.45) ABG HCO3 20.6 L (22-28) ABG O2 Sat (Measured) 93.5 L (95-100) % Garrett Test NOT APPLICABLE A-a Gradient 56 a/A Ratio 0.52 Hemoglobin 9.7 Carboxyhemoglobin 1.3 (0.0-6.9) % THgb Methemoglobin 1.1 L (1.4-1.5) % Potassium 3.4 L (3.5-5.1) Temperature 37.0 C POC O2 Flow Rate 21 % Sodium (137-145) mmol/L Chloride (98-107) mmol/L Carbon Dioxide (22-30) mmol/L Anion Gap (5-15) MEQ/L BUN (7-17) mg/dL Creatinine (0.52-1.04) mg/dL Estimated GFR ML/MIN Glucose (74-106) mg/dL Calcium (8.4-10.2) mg/dL Total Bilirubin (0.2-1.3) mg/dL AST (14-36) U/L ALT (0-35) U/L Alkaline Phosphatase (38-126) U/L NT-Pro-B Natriuret Pep (0-1800) pg/mL Serum Total Protein (6.3-8.2) g/dL Albumin (3.5-5.0) g/dL 11/12/18 Range/Units 10:22 WBC (4.0-10.5) K/mm3 RBC (4.1-5.4) M/mm3 Hgb (12.0-16.0) gm/dl Hct (35-47) % MCV (78-100) fl MCH (26-32) pg MCHC (32-36) g/dl RDW (11.5-14.0) % Plt Count (150-450) K/mm3 MPV (6-9.5) fl Gran % (36.0-66.0) % Eos # (Auto) (0-0.5) Absolute Lymphs (auto) (1.0-4.6) Absolute Monos (auto) (0.0-1.3) Lymphocytes % (24.0-44.0) % Monocytes % (0.0-12.0) % Eosinophils % (0.00-5.0) % Basophils % (0.0-0.4) % Absolute Granulocytes (1.4-6.9) Basophils # (0-0.4) D-Dimer (215-500) ng/mL Puncture Site pCO2 (35-45) mmHg pO2 (75-100) mmHg Base Excess (-2.0-2.0) O2 Saturation (94-100) g/dF ABG pH (7.35-7.45) ABG HCO3 (22-28) ABG O2 Sat (Measured) (95-100) % Garrett Test A-a Gradient a/A Ratio Hemoglobin Carboxyhemoglobin (0.0-6.9) % THgb Methemoglobin (1.4-1.5) % Potassium 3.5 (3.5-5.1) Temperature C POC O2 Flow Rate % Sodium 142 (137-145) mmol/L Chloride 110 H (98-107) mmol/L Carbon Dioxide 21 L (22-30) mmol/L Anion Gap 14.7 (5-15) MEQ/L BUN 11 (7-17) mg/dL Creatinine 0.65 (0.52-1.04) mg/dL Estimated GFR > 60.0 ML/MIN Glucose 177 H (74-106) mg/dL Calcium 8.9 (8.4-10.2) mg/dL Total Bilirubin 0.40 (0.2-1.3) mg/dL AST 41 H (14-36) U/L ALT 26 (0-35) U/L Alkaline Phosphatase 109 (38-126) U/L NT-Pro-B Natriuret Pep 73260 H (0-1800) pg/mL Serum Total Protein 6.3 (6.3-8.2) g/dL Albumin 3.2 L (3.5-5.0) g/dL Radiology Exams: Radiology Procedures Category Date Time Status CHEST 1 VIEW (PORTABLE) Urgent Exams 11/11/18 14:13 Completed CHEST WITH CONTRAST [CT] Stat Exams 11/11/18 15:15 Completed Assessment/Plan (1) Pneumonia Current Visit: Yes Status: Acute Qualifiers: Pneumonia type: due to unspecified organism Laterality: left Lung location: lower lobe of lung Qualified Code(s): J18.1 - Lobar pneumonia, unspecified organism Assessment & Plan: On day #2. Code(s): J18.9 - PNEUMONIA, UNSPECIFIED ORGANISM (2) delerium Current Visit: Yes Status: Acute (3) Dyspnea Current Visit: No Status: Acute Qualifiers: Dyspnea type: shortness of breath Qualified Code(s): R06.02 - Shortness of breath; R06.00 - Dyspnea, unspecified; R06.01 - Orthopnea Assessment & Plan: CXR yesterday, the results of which were not called to me, revealed bibasilar pleural effusions concerning for volume overload. She did receive 1 dose 20mg IV lasix today with good results and I did order 40mg more. BNP is pending. Other labs pending as well. Code(s): R06.00 - DYSPNEA, UNSPECIFIED (4) Hypertension Current Visit: No Status: Chronic Qualifiers: Hypertension type: essential hypertension Qualified Code(s): I10 - Essential (primary) hypertension Assessment & Plan: BP still elevated - on Torpol 12.5mg po BID, lisinopril 5mg (for the past 3d),a nd isosrobide 30mg - I increased isosorbide to 60mg po daily. Code(s): I10 - ESSENTIAL (PRIMARY) HYPERTENSION
[2018-11-12] MEDS: Sodium Chloride 0.9% 10 ML FLUSH Syringe IV SCH ×2 (15:30→22:01)
[2018-11-12] MEDS ORDERED: Klor Con 10 MEQ PO ONE (18:20)
[2018-11-12] MEDS: ZOCOR 20MG PO SCH (22:01)
[2018-11-13] MEDS: Zosyn 3.375GM/100 Ml D5W 3.375 GM/100 ML IVPB IV SCH ×3 (05:29→21:24)
[2018-11-13] MEDS: Sodium Chloride 0.9% 10 ML FLUSH Syringe IV SCH ×2 (05:33→14:00)
[2018-11-13 05:50] LABS: BASOPHIL % 0.6 % (0.0-0.4); Basophil (Absolute #) 0.04 (0-0.4); Eosinophil (Absolute #) 0.57 (0-0.5); Granulocyte Absolute (ANC) 3.58 (1.4-6.9); Granulocytes % 56.3 % (36.0-66.0); Hematocrit 31.7 % (35-47); Hemoglobin 9.7 gm/dl (12.0-16.0); Lymphocyte (Absolute #) 1.55 (1.0-4.6); Lymphocytes % 24.4 % (24.0-44.0); Mean Corpuscular Hgb Concent. 30.6 g/dl (32-36); Mean Platelet Volume 10.4 fl (6-9.5); Monocyte (Absolute #) 0.62 (0.0-1.3); Monocytes % 9.7 % (0.0-12.0); Platelet Count 212 K/mm3 (150-450); Red Blood Count 3.14 M/mm3 (4.1-5.4); Red Cell Distribution Width 15.8 % (11.5-14.0); White Blood Count 6.4 K/mm3 (4.0-10.5)
[2018-11-13 06:12] LABS: Mean Corpuscular Hemoglobin 30.8 pg (26-32)
[2018-11-13 06:31] LABS: ALBUMIN 2.7 g/dL (3.5-5.0); ALKALINE PHOSPHATASE 88 U/L (38-126); ANION GAP 11.7 MEQ/L (5-15); BLOOD UREA NITROGEN 16 mg/dL (7-17); CHLORIDE 107 mmol/L (98-107); Calcium 8.8 mg/dL (8.4-10.2); Carbon Dioxide 24 mmol/L (22-30); Creatinine 1 0.68 mg/dL (0.52-1.04); Glucose 92 mg/dL (74-106); NT PRO BNP 17900 pg/mL (0-1800); Potassium 3.4 mmol/L (3.5-5.1); SGOT/AST 24 U/L (14-36); SGPT/ALT 21 U/L (0-35); SODIUM 139 mmol/L (137-145); Total Protein 5.5 g/dL (6.3-8.2)
--- NOTE | 2018-11-13 08:16 | PCM.NOTE ---
Date and Time: 11/13/18813 Subjective Assessment: family reports patient is more alert, slept well last night and seems to be better today than the last couple of days. she is eating breakfast, still requiring oxygen. Objective Exam General Appearance: no apparent distress Neurologic Exam: alert Skin Exam: normal color, warm Respiratory Exam: crackles/rales Cardiovascular Exam: regular rate/rhythm, normal heart sounds Gastrointestinal/Abdomen Exam: soft, No tenderness, No mass Extremity Exam: normal inspection, normal range of motion OBJECTIVE DATA Vital Signs: Vital Signs - 24 hr Temp Pulse Resp BP Pulse Ox 11/13/18 07:56 97.9 F 57 L 18 144/67 100 11/13/18 04:00 97.9 F 59 L 17 134/68 98 11/12/18 23:56 97.9 F 61 20 145/67 99 11/12/18 20:00 100.0 F 62 18 151/69 96 11/12/18 19:04 98 11/12/18 17:37 97.8 F 62 20 159/72 98 11/12/18 17:33 97.8 F 62 20 159/72 98 11/12/18 17:31 97.8 F 62 20 159/72 98 11/12/18 15:00 97.8 F 62 20 159/72 98 11/12/18 11:00 97.9 F 66 18 142/68 89 L Oxygen-Last 24 hours O2 Percentage 2 Liters = 28% O2 Percentage 3 Liters = 32% O2 Percentage 3 Liters = 32% O2 Percentage 3 Liters = 32% O2 Percentage 4 Liters = 36% O2 Percentage 4 Liters = 36% O2 Percentage 4 Liters = 36% O2 Percentage 4 Liters = 36% O2 Percentage 2 Liters = 28% Pain Assessment - Last Documented Pain Intensity 0 Pain Scale [facility] Intake and Output: Intake & Output 11/10/18 11/11/18 11/12/18 11/13/18 11:59 11:59 11:59 11:59 Intake Total 1737 2147 1660 979 Output Total 1125 950 937 8406 Balance 612 8567 1510 721 Weight 45.1 kg 44.4 kg 46.1 kg 47.2 kg Lab Results: Lab Results-Last 24 Hours 11/12/18 11/12/18 11/13/18 Range/Units 10:22 10:22 04:55 WBC 6.2 6.4 (4.0-10.5) K/mm3 RBC 3.21 L 3.14 L (4.1-5.4) M/mm3 Hgb 9.9 L 9.7 L (12.0-16.0) gm/dl Hct 31.8 L 31.7 L (35-47) % MCV 99.1 101.0 H (78-100) fl MCH 30.8 30.8 (26-32) pg MCHC 31.1 L 30.6 L (32-36) g/dl RDW 15.8 H 15.8 H (11.5-14.0) % Plt Count 233 212 (150-450) K/mm3 MPV 9.9 H 10.4 H (6-9.5) fl Gran % 68.9 H 56.3 (36.0-66.0) % Eos # (Auto) 0.26 0.57 H (0-0.5) Absolute Lymphs (auto) 0.94 L 1.55 (1.0-4.6) Absolute Monos (auto) 0.70 0.62 (0.0-1.3) Lymphocytes % 15.1 L 24.4 (24.0-44.0) % Monocytes % 11.3 9.7 (0.0-12.0) % Eosinophils % 4.2 9.0 H (0.00-5.0) % Basophils % 0.5 0.6 (0.0-0.4) % Absolute Granulocytes 4.29 3.58 (1.4-6.9) Basophils # 0.03 0.04 (0-0.4) Sodium 142 (137-145) mmol/L Potassium 3.5 (3.5-5.1) mmol/L Chloride 110 H (98-107) mmol/L Carbon Dioxide 21 L (22-30) mmol/L Anion Gap 14.7 (5-15) MEQ/L BUN 11 (7-17) mg/dL Creatinine 0.65 (0.52-1.04) mg/dL Estimated GFR > 60.0 ML/MIN Glucose 177 H (74-106) mg/dL Calcium 8.9 (8.4-10.2) mg/dL Total Bilirubin 0.40 (0.2-1.3) mg/dL AST 41 H (14-36) U/L ALT 26 (0-35) U/L Alkaline Phosphatase 109 (38-126) U/L NT-Pro-B Natriuret Pep 89107 H (0-1800) pg/mL Serum Total Protein 6.3 (6.3-8.2) g/dL Albumin 3.2 L (3.5-5.0) g/dL 11/13/18 Range/Units 04:55 WBC (4.0-10.5) K/mm3 RBC (4.1-5.4) M/mm3 Hgb (12.0-16.0) gm/dl Hct (35-47) % MCV (78-100) fl MCH (26-32) pg MCHC (32-36) g/dl RDW (11.5-14.0) % Plt Count (150-450) K/mm3 MPV (6-9.5) fl Gran % (36.0-66.0) % Eos # (Auto) (0-0.5) Absolute Lymphs (auto) (1.0-4.6) Absolute Monos (auto) (0.0-1.3) Lymphocytes % (24.0-44.0) % Monocytes % (0.0-12.0) % Eosinophils % (0.00-5.0) % Basophils % (0.0-0.4) % Absolute Granulocytes (1.4-6.9) Basophils # (0-0.4) Sodium 139 (137-145) mmol/L Potassium 3.4 L (3.5-5.1) mmol/L Chloride 107 (98-107) mmol/L Carbon Dioxide 24 (22-30) mmol/L Anion Gap 11.7 (5-15) MEQ/L BUN 16 (7-17) mg/dL Creatinine 0.68 (0.52-1.04) mg/dL Estimated GFR > 60.0 ML/MIN Glucose 92 (74-106) mg/dL Calcium 8.8 (8.4-10.2) mg/dL Total Bilirubin 0.30 (0.2-1.3) mg/dL AST 24 (14-36) U/L ALT 21 (0-35) U/L Alkaline Phosphatase 88 (38-126) U/L NT-Pro-B Natriuret Pep 20906 H (0-1800) pg/mL Serum Total Protein 5.5 L (6.3-8.2) g/dL Albumin 2.7 L (3.5-5.0) g/dL Radiology Exams: Radiology Procedures Category Date Time Status CHEST 1 VIEW (PORTABLE) Urgent Exams 11/11/18 14:13 Completed CHEST WITH CONTRAST [CT] Stat Exams 11/11/18 15:15 Completed Assessment/Plan (1) Pneumonia Current Visit: Yes Status: Acute Qualifiers: Pneumonia type: due to unspecified organism Laterality: left Lung location: lower lobe of lung Qualified Code(s): J18.1 - Lobar pneumonia, unspecified organism Assessment & Plan: on zosyn, improving clinically. elevated bnp from volume overload, needs more diuresis. Code(s): J18.9 - PNEUMONIA, UNSPECIFIED ORGANISM (2) delerium Current Visit: Yes Status: Acute (3) Weakness Current Visit: Yes Status: Acute Code(s): R53.1 - WEAKNESS (4) Hypertension Current Visit: No Status: Chronic Qualifiers: Hypertension type: essential hypertension Qualified Code(s): I10 - Essential (primary) hypertension Code(s): I10 - ESSENTIAL (PRIMARY) HYPERTENSION
[2018-11-13] MEDS: Pepcid 20 MG PO SCH (09:03)
[2018-11-13] MEDS: Imdur 30 MG PO SCH (09:03)
[2018-11-13] MEDS: ENOXAPARIN SODIUM SQ SCH (09:03)
[2018-11-13] MEDS: Toprol-Xl 25MG Tablets PO SCH ×2 (09:03→21:24)
[2018-11-13] MEDS: SYNTHROID 50 MCG PO SCH (09:04)
[2018-11-13] MEDS: Klor Con 10 MEQ PO SCH ×2 (09:04→21:23)
[2018-11-13] MEDS: ECOTRIN 81 MG PO SCH (09:04)
[2018-11-13] MEDS: Reglan 10 MG PO SCH ×2 (09:04→21:23)
[2018-11-13] MEDS: Protonix 40MG Tablet PO SCH (09:05)
[2018-11-13] MEDS: Zestril 5 MG PO SCH (09:05)
[2018-11-13] MEDS: Lasix 20 MG/2 ML IV SCH ×2 (09:06→17:08)
[2018-11-13] MEDS ORDERED: Klor Con 10 MEQ PO SCH (10:00)
[2018-11-13] MEDS ORDERED: Klor Con 10 MEQ PO ONE (18:03)
[2018-11-13] MEDS: ZOCOR 20MG PO SCH (21:24)
[2018-11-14] MEDS: Zosyn 3.375GM/100 Ml D5W 3.375 GM/100 ML IVPB IV SCH ×3 (05:36→20:59)
[2018-11-14 05:53] LABS: BASOPHIL % 0.7 % (0.0-0.4); Basophil (Absolute #) 0.05 (0-0.4); Eosinophil % 6.8 % (0.00-5.0); Eosinophil (Absolute #) 0.47 (0-0.5); Granulocyte Absolute (ANC) 4.01 (1.4-6.9); Granulocytes % 58.4 % (36.0-66.0); Hematocrit 31.4 % (35-47); Hemoglobin 9.8 gm/dl (12.0-16.0); Lymphocyte (Absolute #) 1.69 (1.0-4.6); Lymphocytes % 24.6 % (24.0-44.0); Mean Cell Volume 97.8 fl (78-100); Mean Corpuscular Hemoglobin 30.5 pg (26-32); Mean Corpuscular Hgb Concent. 31.2 g/dl (32-36); Mean Platelet Volume 10.4 fl (6-9.5); Monocyte (Absolute #) 0.65 (0.0-1.3); Monocytes % 9.5 % (0.0-12.0); Platelet Count 255 K/mm3 (150-450); Red Blood Count 3.21 M/mm3 (4.1-5.4); Red Cell Distribution Width 15.5 % (11.5-14.0); White Blood Count 6.9 K/mm3 (4.0-10.5)
[2018-11-14 06:19] LABS: ANION GAP 11.1 MEQ/L (5-15); BLOOD UREA NITROGEN 15 mg/dL (7-17); CHLORIDE 101 mmol/L (98-107); Calcium 8.5 mg/dL (8.4-10.2); Carbon Dioxide 27 mmol/L (22-30); Creatinine 1 0.68 mg/dL (0.52-1.04); Glucose 95 mg/dL (74-106); NT PRO BNP 11000 pg/mL (0-1800); Potassium 3.1 mmol/L (3.5-5.1); SODIUM 136 mmol/L (137-145)
[2018-11-14] MEDS: Sodium Chloride 0.9% 10 ML FLUSH Syringe IV SCH ×3 (07:29→20:59)
[2018-11-14] MEDS: Sodium Chloride 0.9% 1000 ML 1,000 ML IV SCH (07:30)
--- NOTE | 2018-11-14 08:31 | PCM.NOTE ---
Date and Time: 11/14/18829 Subjective Assessment: patient c/o some dyspnea this morning, otherwise no new complaints. tolerating po, still requiring oxygen. was not on O2 prior to admission Objective Exam General Appearance: no apparent distress, alert Neurologic Exam: alert, oriented x 3 Skin Exam: normal color, warm, dry Respiratory Exam: crackles/rales Cardiovascular Exam: regular rate/rhythm, normal heart sounds Gastrointestinal/Abdomen Exam: soft, No tenderness, No mass Extremity Exam: normal inspection, normal range of motion OBJECTIVE DATA Vital Signs: Vital Signs - 24 hr Temp Pulse Resp BP BP Pulse Ox 11/14/18 07:58 66 18 170/77 99 11/14/18 04:00 97.9 F 63 16 190/76 98 11/14/18 00:00 98.2 F 60 16 146/61 96 11/13/18 20:00 98.5 F 68 18 147/69 98 11/13/18 19:41 98 11/13/18 16:00 97.9 F 59 L 18 142/67 96 11/13/18 12:00 98.2 F 59 L 18 149/65 97 Oxygen-Last 24 hours O2 Percentage 2 Liters = 28% O2 Percentage 2 Liters = 28% O2 Percentage 3 Liters = 32% O2 Percentage 2 Liters = 28% Pain Assessment - Last Documented Pain Intensity 0 Pain Scale Used 0-10 Pain Scale Intake and Output: Intake & Output 11/11/18 11/12/18 11/13/18 11/14/18 11:59 11:59 11:59 11:59 Intake Total 2147 1660 1259 1100 Output Total 893 479 3549 451 Balance 1797 1510 -891 649 Weight 44.4 kg 46.1 kg 47.2 kg 47 kg Lab Results: Lab Results-Last 24 Hours 11/14/18 11/14/18 Range/Units 05:23 05:23 WBC 6.9 (4.0-10.5) K/mm3 RBC 3.21 L (4.1-5.4) M/mm3 Hgb 9.8 L (12.0-16.0) gm/dl Hct 31.4 L (35-47) % MCV 97.8 (78-100) fl MCH 30.5 (26-32) pg MCHC 31.2 L (32-36) g/dl RDW 15.5 H (11.5-14.0) % Plt Count 255 (150-450) K/mm3 MPV 10.4 H (6-9.5) fl Gran % 58.4 (36.0-66.0) % Eos # (Auto) 0.47 (0-0.5) Absolute Lymphs (auto) 1.69 (1.0-4.6) Absolute Monos (auto) 0.65 (0.0-1.3) Lymphocytes % 24.6 (24.0-44.0) % Monocytes % 9.5 (0.0-12.0) % Eosinophils % 6.8 H (0.00-5.0) % Basophils % 0.7 (0.0-0.4) % Absolute Granulocytes 4.01 (1.4-6.9) Basophils # 0.05 (0-0.4) Sodium 136 L (137-145) mmol/L Potassium 3.1 L (3.5-5.1) mmol/L Chloride 101 (98-107) mmol/L Carbon Dioxide 27 (22-30) mmol/L Anion Gap 11.1 (5-15) MEQ/L BUN 15 (7-17) mg/dL Creatinine 0.68 (0.52-1.04) mg/dL Estimated GFR > 60.0 ML/MIN Glucose 95 (74-106) mg/dL Calcium 8.5 (8.4-10.2) mg/dL NT-Pro-B Natriuret Pep 27023 H (0-1800) pg/mL Multi-Disciplinary Progress Notes: Multi-Disciplinary Progress Notes 11/13/18 17:02 Case Management Note by Lucina Villegas Pt. plans to return back to [place] for rehab stay when she is clinically stable. Initialized on 11/13/18 17:02 - END OF NOTE Assessment/Plan (1) Cardiac volume overload Current Visit: Yes Status: Acute Assessment & Plan: bnp improving, continue IV lasix. will wean oxygen as tolerated. Code(s): E87.79 - OTHER FLUID OVERLOAD (2) Pneumonia Current Visit: Yes Status: Acute Qualifiers: Pneumonia type: due to unspecified organism Laterality: left Lung location: lower lobe of lung Qualified Code(s): J18.1 - Lobar pneumonia, unspecified organism Assessment & Plan: on zosyn, clinically improving. Code(s): J18.9 - PNEUMONIA, UNSPECIFIED ORGANISM (3) delerium Current Visit: Yes Status: Acute (4) Weakness Current Visit: Yes Status: Acute Code(s): R53.1 - WEAKNESS (5) Hypertension Current Visit: No Status: Chronic Qualifiers: Hypertension type: essential hypertension Qualified Code(s): I10 - Essential (primary) hypertension Code(s): I10 - ESSENTIAL (PRIMARY) HYPERTENSION
[2018-11-14] MEDS: Reglan 10 MG PO SCH ×2 (09:27→20:59)
[2018-11-14] MEDS: Imdur 30 MG PO SCH (09:27)
[2018-11-14] MEDS: ECOTRIN 81 MG PO SCH (09:27)
[2018-11-14] MEDS: Pepcid 20 MG PO SCH (09:28)
[2018-11-14] MEDS: Toprol-Xl 25MG Tablets PO SCH ×2 (09:28→20:58)
[2018-11-14] MEDS: ENOXAPARIN SODIUM SQ SCH (09:28)
[2018-11-14] MEDS: Klor Con 10 MEQ PO SCH ×2 (09:28→20:59)
[2018-11-14] MEDS: Protonix 40MG Tablet PO SCH (09:28)
[2018-11-14] MEDS: Zestril 5 MG PO SCH (09:28)
[2018-11-14] MEDS: Lasix 20 MG/2 ML IV SCH ×2 (09:28→17:56)
[2018-11-14] MEDS: SYNTHROID 50 MCG PO SCH (09:34)
[2018-11-14] MEDS ORDERED: Sodium Chloride 0.9% 10 ML FLUSH Syringe IV PRN (14:05)
[2018-11-14] MEDS: ZOCOR 20MG PO SCH (20:59)
[2018-11-15] MEDS: APRESOLINE 20 MG/ML INJ IV PRN ×2 (00:27→04:08)
[2018-11-15] MEDS: Sodium Chloride 0.9% 10 ML FLUSH Syringe IV SCH (04:56)
[2018-11-15] MEDS: Zosyn 3.375GM/100 Ml D5W 3.375 GM/100 ML IVPB IV SCH (05:47)
[2018-11-15 06:03] LABS: BASOPHIL % 0.3 % (0.0-0.4); Basophil (Absolute #) 0.03 (0-0.4); Eosinophil % 1.3 % (0.00-5.0); Eosinophil (Absolute #) 0.15 (0-0.5); Granulocyte Absolute (ANC) 8.52 (1.4-6.9); Granulocytes % 75.3 % (36.0-66.0); Hemoglobin 11.5 gm/dl (12.0-16.0); Lymphocytes % 15.9 % (24.0-44.0); Mean Cell Volume 95.5 fl (78-100); Mean Corpuscular Hemoglobin 30.5 pg (26-32); Mean Corpuscular Hgb Concent. 31.9 g/dl (32-36); Mean Platelet Volume 10.4 fl (6-9.5); Monocyte (Absolute #) 0.82 (0.0-1.3); Monocytes % 7.2 % (0.0-12.0); Platelet Count 369 K/mm3 (150-450); Red Blood Count 3.77 M/mm3 (4.1-5.4); Red Cell Distribution Width 15.5 % (11.5-14.0); White Blood Count 11.3 K/mm3 (4.0-10.5)
[2018-11-15 06:25] LABS: ANION GAP 15.8 MEQ/L (5-15); BLOOD UREA NITROGEN 12 mg/dL (7-17); CHLORIDE 100 mmol/L (98-107); Calcium 9.5 mg/dL (8.4-10.2); Carbon Dioxide 25 mmol/L (22-30); Creatinine 1 0.58 mg/dL (0.52-1.04); Glucose 143 mg/dL (74-106); NT PRO BNP 10900 pg/mL (0-1800); SODIUM 138 mmol/L (137-145)
[2018-11-15 07:46] VITALS: BP 137/62; PULSE 71; O2SAT 95
--- NOTE | 2018-11-15 08:38 | PCM.DS ---
Discharge Summary Date of Admission: 11/10/18 08:28 Admitting Physician: LUKE DENSON Primary Care Provider: IN[facility] Allergies Allergies Sulfa (Sulfonamide Antibiotics) Allergy (Intermediate, Verified 11/08/18 18:47) stated "made me feel funny" acetaminophen [From [place]] Adverse Reaction (Verified 11/08/18 22:02) Causes hallucinations hydrocodone [From [place]] Adverse Reaction (Verified 11/08/18 22:02) Causes hallucinations Hospital Summary - Hospital Course Hospital Course: patient was admitted with altered mental status and apparent uti, was treated and urine culture was negative. - Vitals & Intake/Output Vital Signs: Vital Signs Temperature 98.2 F 11/15/18 07:45 Pulse Rate 71 11/15/18 07:45 Respiratory Rate 18 11/15/18 07:45 Blood Pressure 137/62 11/15/18 07:45 O2 Sat by Pulse Oximetry 95 11/15/18 07:45 Oxygen-Last Documented O2 Percentage 2 Liters = 28% Intake & Output: Intake & Output 11/12/18 11/13/18 11/14/18 11/15/18 11:59 11:59 11:59 11:59 Intake Total 1660 1259 1100 833 Output Total 150 2150 451 501 Balance 1510 -891 649 332 Weight 46.1 kg 47.2 kg 47 kg 47.2 kg - Lab Result Diagrams: 11/15/18 05:12 11/15/18 05:12 Lab Results-Last 24 Hrs: Lab Results-Last 24 Hours 11/15/18 11/15/18 Range/Units 05:12 05:12 WBC 11.3 H (4.0-10.5) K/mm3 RBC 3.77 L (4.1-5.4) M/mm3 Hgb 11.5 L (12.0-16.0) gm/dl Hct 36.0 (35-47) % MCV 95.5 (78-100) fl MCH 30.5 (26-32) pg MCHC 31.9 L (32-36) g/dl RDW 15.5 H (11.5-14.0) % Plt Count 369 D (150-450) K/mm3 MPV 10.4 H (6-9.5) fl Gran % 75.3 H (36.0-66.0) % Eos # (Auto) 0.15 (0-0.5) Absolute Lymphs (auto) 1.80 (1.0-4.6) Absolute Monos (auto) 0.82 (0.0-1.3) Lymphocytes % 15.9 L (24.0-44.0) % Monocytes % 7.2 (0.0-12.0) % Eosinophils % 1.3 (0.00-5.0) % Basophils % 0.3 (0.0-0.4) % Absolute Granulocytes 8.52 H (1.4-6.9) Basophils # 0.03 (0-0.4) Sodium 138 (137-145) mmol/L Potassium 3.0 L (3.5-5.1) mmol/L Chloride 100 (98-107) mmol/L Carbon Dioxide 25 (22-30) mmol/L Anion Gap 15.8 H (5-15) MEQ/L BUN 12 (7-17) mg/dL Creatinine 0.58 (0.52-1.04) mg/dL Estimated GFR > 60.0 ML/MIN Glucose 143 H (74-106) mg/dL Calcium 9.5 (8.4-10.2) mg/dL NT-Pro-B Natriuret Pep 01954 H (0-1800) pg/mL Micro Results-Entire Visit: Microbiology 11/08/18 19:12 Blood Culture Gram Stain - Final Blood Not Reportable Blood Culture - Final NO GROWTH 11/08/18 19:00 Blood Culture Gram Stain - Final Blood Not Reportable Blood Culture - Final NO GROWTH 11/08/18 18:34 Urine Culture - Final Catherized NO GROWTH - Procedures and Test Procedures and Tests throughout Hospitalization: Therapy Orders & Screens 11/08/18 21:22 Respiratory Therapy Consult ROUTINE Comment: Reason For Exam: 11/09/18 08:36 PT Eval & Treat ( Order) Reason for Eval:: weakness Diagnosis: UTI, altered mental status 11/09/18 09:08 Speech Therapy Eval & Treat [ST Eval & Treat (MD Order)] .as ordered Comment: Physician Instructions: swallowing eval and tx. Reason For Exam: family reported pt choking prior to admit. Evaluate: Yes Treat: Yes Reason for Eval: reported choking. Diagnosis: UTI, altered mental status 11/12/18 05:42 Oxygen Nasal Cannula 2 lpm Comment: Diagnosis: PNEUMONIA 11/12/18 20:24 Respiratory Therapy Assessment DAILY Comment: Diagnosis: PNEUMONIA Discharge Exam General Appearance: no apparent distress, alert Eye Exam: PERRL, EOMI, eyes nml inspection Respiratory Exam: normal breath sounds, lungs clear Cardiovascular Exam: regular rate/rhythm, normal heart sounds Gastrointestinal/Abdomen Exam: soft, No tenderness, No mass Extremity Exam: normal inspection, normal range of motion Final Diagnosis/Problem List - Final Discharge Diagnosis/Problem (1) Cardiac volume overload Current Visit: Yes Status: Acute Code(s): E87.79 - OTHER FLUID OVERLOAD (2) Pneumonia Current Visit: Yes Status: Acute Code(s): J18.9 - PNEUMONIA, UNSPECIFIED ORGANISM (3) delerium Current Visit: Yes Status: Acute (4) Weakness Current Visit: Yes Status: Acute Code(s): R53.1 - WEAKNESS (5) Hypertension Current Visit: No Status: Chronic Code(s): I10 - ESSENTIAL (PRIMARY) HYPERTENSION - Discharge Disposition: Home, Self-Care Condition: Good Prescriptions: New Doxycycline Hyclate 100 mg [Vibramycin 100 MG] 100 mg PO BID #14 tab Continue Levothyroxine Sodium [Synthroid] 50 mcg PO DAILY Esomeprazole Magnesium [Nexium] 40 mg PO DAILY Multivitamin [Daily Multivitamin] 1 tab PO DAILY Ibandronate Sodium 150 mg PO UD Tolterodine Tartrate [Detrol LA] 4 mg PO DAILY Metoprolol Succinate 25 mg Xl* [Toprol-Xl 25MG Tablets] 12.5 mg PO BID Metoclopramide HCl 10 mg [Reglan 10 MG] 10 mg PO BID Meclizine HCl 25 mg PO TIDPRN PRN PRN Reason: Dizziness Famotidine [Pepcid] 40 mg PO DAILY Aspirin EC 81 mg [Ecotrin 81 mg] 162 mg PO DAILY Nitroglycerin 0.4 mg Tablet [Nitrostat 0.4 MG Tablet] 0.4 mg SL UD #1 bottle Potassium Chloride 8 meq PO DAILY Atorvastatin Calcium 20 mg PO HS Isosorbide Mononitrate 30 mg [Imdur 30 MG] 30 mg PO DAILY #30 tab Enoxaparin Sodium [Lovenox] 30 mg SQ DAILY Acetaminophen 325 mg [Tylenol 325 mg] 650 mg PO Q4H PRN PRN PRN Reason: fever/pain Magnesium Hydroxide 30 ml [Milk of Magnesia 30 ml] 30 ml PO DAILY PRN PRN PRN Reason: Constipation Follow up with: DEWAYNE BLANCO [Primary Care Provider] - 1 Week
[2018-11-15] MEDS: Pepcid 20 MG PO SCH (09:04)
[2018-11-15] MEDS ORDERED: K-LYTE 25 MEQ PO ONE (09:08)
[2018-11-15] MEDS: Toprol-Xl 25MG Tablets PO SCH (09:09)
[2018-11-15] MEDS: Klor Con 10 MEQ PO SCH (09:10)
[2018-11-15] MEDS: ECOTRIN 81 MG PO SCH (09:10)
[2018-11-15] MEDS: Zestril 5 MG PO SCH (09:10)
[2018-11-15] MEDS: ENOXAPARIN SODIUM SQ SCH (09:10)
[2018-11-15] MEDS: Imdur 30 MG PO SCH (09:10)
[2018-11-15] MEDS: SYNTHROID 50 MCG PO SCH (09:10)
[2018-11-15] MEDS: Protonix 40MG Tablet PO SCH (09:10)
[2018-11-15] MEDS: Reglan 10 MG PO SCH (09:10)
== END 2018-11-15 09:58 | DRG 640 ==
LOC: ED 17:54 → MED SURG 21:11 → OBSVTOIN 11-10 08:28
PROVIDERS: ADMIT Family Medicine; ATTEND Family Medicine
DX: E87.79 Other fluid overload (principal); J18.9 Pneumonia, unspecified organism; N39.0 Urinary tract infection, site not specified; R53.1 Weakness; I10 Essential (primary) hypertension; Z79.899 Other long term (current) drug therapy; R41.82 Altered mental status, unspecified; G20 Parkinson's disease; J44.9 Chronic obstructive pulmonary disease, unspecified; R06.00 Dyspnea, unspecified
CPT/HCPCS: 36415; 36600; 51702; 70450; 71045; 71260; 80048; 80053; 81001; 82150; 82375; 82803; 82805; 83605; 83690; 83880; 84484; 85025; 85379; 85610; 85730; 87040; 87086; 92610; 93005; 94760; 96360; 96361; 96365; 96374; 99285; G0378; J0360; J0456; J0696; J1650; J1940; J2405; J2543; A9270-GY